=== PATIENT | male | born 1930 | race Caucasian/White ===

== ENCOUNTER 2017-04-18 05:50 | Day surgery (SDC) | payer MEDICARE, OTHER ==
[~2017-04-18] VITALS: Ht 190.5 cm; Wt 86.2 kg
[~2017-04-18 05:50] MED LIST: ASPIRIN325 MG PO; CRESTOR40 MG NG; MULTI VITAMIN1 EACH PO; PLAVIX75 MG PO
--- NOTE | 2017-04-18 08:01 | NUR ---
PT ALERT, ORIENTED AND SUPPORTED BY HIS MANDIE. PT SEEMED PREPARED, HAD FEW QUESTIONS, BOTH VERY FRIENDLY AND PLEASANT. CAME IN, WILL FOLLOW NEEDED
--- NOTE | 2017-04-18 08:47 | NUR ---
04/18/17 0847 Maryann Machuca 0836 PT ASLEEP, ORAL AIRWAY IN PLACE WITH RN ISADORA CHIN THRUST TO MAINTAIN AIRWAY. 0840 PT AWOKE TO STIMULI AND ORAL AIRWAY WAS REMOVED. O2 DECREASED TO 6L VIA MASK. O2 SAT 100%.
[2017-04-18] MEDS ORDERED: NORCO 5-325 TA1 EACH PO (10:36)
--- NOTE | 2017-04-18 15:10 | OR ---
[facility] [address] [place], [place] [address] Signed DATE OF OPERATION: 04/18/2017 SURGEON: Jessica Womack MD PREOPERATIVE DIAGNOSIS: Left preauricular subcutaneous mass (1 x 1.5 cm). POSTOPERATIVE DIAGNOSIS: Left preauricular subcutaneous mass (1 x 1.5 cm). PROCEDURE: Excision left preauricular subcutaneous mass. ESTIMATED BLOOD LOSS: None. FINDINGS: Artur appears to have a small lipoma in the preauricular space. Preoperatively, we thought it could be a lymph node as well. INDICATIONS: Artur is an 87-year-old gentleman, who remains in excellent shape. He goes to our athletic club almost daily. He had been to his maitre d and there was a subcutaneous mass in front of his left ear. It is a centimeter wide by 1.5 to 2 cm in length. Because his sideburns cover that area. He said he has never noticed it. On exam, it does not appear attached anything underneath. It does not appear to be connected to the overlying skin. It does not appear to be any drainage. He said it has never been infected to his knowledge. He has no idea how long it has been there. On exam, it does not appear to be any nearby skin lesions. I explained to Artur and his it is probably best that we make a vertical incision over that lesion and remove it for definitive diagnosis and treatment. I explained to them the nature of the incision along with the risks including, but not limited to bleeding, infection, scarring, change in contour of the skin as well as possible need for additional surgery based on pathology results. They had expressed understanding and wished to proceed. PROCEDURE NOTE: I met with Artur and his in our preop area. We were able to easily see and palpate this lesion. We went ahead and marked that appropriately with our pen. After this, Artur was taken into our operating room and placed in the supine position under general LMA anesthesia. He was given preoperative antibiotics along with subcutaneous Electronically Signed By: JESSICA WOMACK MD 04/18/17 1510 PATIENT NAME: ARTUR VENCES OPERATIVE REPORT DATE OF : 34 PHYSICIAN: JESSICA WOMACK MD REPORT #: [id number] REPORT IS CONFIDENTIAL AND NOT TO BE RELEASED WITHOUT AUTHORIZATION [facility] [address] [place] [id number] Signed heparin. He was then prepped and draped in the usual sterile fashion. We made a standard vertical incision in the left preauricular area and carried that down around the lesion with the help of our needle-tip cautery. By visual inspection, this appears to be a small lipoma, probably a centimeter wide by 1.5 cm in length. I palpated in the wound. No other lesions were noted. After this, local anesthetic was injected in the wound. The wound was irrigated and suctioned out until clear. The dermis was reapproximated with interrupted subcuticular 5-0 Monocryl sutures. Skin edges were reapproximated with a running 6-0 fast absorbing plain gut suture. A 0.5 inch Steri-Strip was then placed over the incision. After this, Artur was awakened from his anesthesia, extubated in the OR and taken to recovery room in stable condition. MD ELENA Painter/PJL /[id number] cc: MD Carmita Painter MD Electronically Signed By: JESSICA WOMACK MD 04/18/17 1510 PATIENT NAME: ARTUR VENCES OPERATIVE REPORT DATE OF : 34 PHYSICIAN: JESSICA WOMACK MD REPORT #: [id number] REPORT IS CONFIDENTIAL AND NOT TO BE RELEASED WITHOUT AUTHORIZATION
== END 2017-04-18 10:50 | disposition home or self-care (01) ==
LOC: DS 05:50
PROVIDERS: Colon & Rectal Surgery
PROC: 0JB10ZZ Excision of Face Subcutaneous Tissue and Fascia, Open Approach (ICD-10-PCS; principal; 2017-04-18 06:45)
DX: L98.8 Other specified disorders of the skin and subcutaneous tissue (principal); I25.9 Chronic ischemic heart disease, unspecified; N40.0 Benign prostatic hyperplasia without lower urinary tract symptoms; E78.5 Hyperlipidemia, unspecified; E55.9 Vitamin D deficiency, unspecified; Z90.89 Acquired absence of other organs; Z98.52 Vasectomy status; Z95.5 Presence of coronary angioplasty implant and graft; Z86.010 Personal history of colon polyps; Z98.818 Other dental procedure status; Z98.890 Other specified postprocedural states; Z79.899 Other long term (current) drug therapy
CPT/HCPCS: 00100; 88304; J0690; J1100; J1644; J1885; J2405; J2704; J7120

== ENCOUNTER 2017-06-11 07:00 | Day surgery (SDC) | payer MEDICARE, OTHER ==
[~2017-06-11] VITALS: Ht 190.5 cm; Wt 86.2 kg
[~2017-06-11 07:00] MED LIST changes: +NORCO 5-325 TA1 EACH PO
--- NOTE | 2017-06-11 09:22 | NUR ---
PT SITTING UP IN BED-ALERT AND ORIENTED. HIS MANDIE HAD STEPPED OUT FOR BREAKFAST. PT INFORMED, SEEMED RELAXED AND PREPARED FOR SURGERY. EXTENDED A BLESSING, WILL BE AVAILABLE NEEDED
--- NOTE | 2017-06-11 09:48 | NUR ---
06/11/17 0948 Maryann Machuca 0930 PT ARRIVED ASLEEP WITH ORAL AIRWAY IN PLACE ON 10L VIA MASK. 0937 PT WOKE UP ORAL AIRWAY REMOVED, O2 DECREASED TO 6L. O2 SAT 100%. PT DENIES PAIN AND NAUSEA.
--- NOTE | 2017-06-11 10:03 | NUR ---
SOUP AND ROLL ORDERED FROM DIETARY. ICED WATER GIVEN. CALL LIGHT W/IN REACH. FAMILY @ BS.
--- NOTE | 2017-06-11 11:05 | NUR ---
MORE WATER GIVEN.
--- NOTE | 2017-06-11 11:45 | NUR ---
PT UP TO BR W/RN STANDBY. PT AMBULATES 150 ML CLEAR YELLOW URINE AND REQ DC HOME. VERBAL DC INSTRUCTIONS GIVEN IN PRESENCE OF PT'S SPOUSE AND THEY BOTH VERBALIZE UNDERSTANDING. PT DRESSES SELF IN PRESENCE OF SPOUSE.
--- NOTE | 2017-06-17 12:06 | OR ---
[facility] [address] [place], [place] [address] Signed DATE OF OPERATION: 06/11/2017 SURGEON: Jessica Fine MD PREOPERATIVE DIAGNOSIS: Reducible right inguinal hernia. POSTOPERATIVE DIAGNOSIS: Reducible right indirect inguinal hernia. PROCEDURE: Right Gibson onlay mesh, inguinal herniorrhaphy. ESTIMATED BLOOD LOSS: None. INDICATIONS: Artur is an 87-year-old gentleman who remains very active. In fact, he goes and exercise 6 days a week at our local athletic club. He has had his ideal body weight and has good muscle mass and excellent functional status. However, he has noticed pain and swelling in the right groin for about a year. He said it has increased in size and burning and starting to limit him in his daily activities as well as his exercising. He mentioned it to his primary care provider. He was asked to see me with respect to his reducible right inguinal hernia. In the office, I gave Artur a booklet on hernias. We looked at the book together to identify inguinal hernias. He understands the difference between a primary suture repair and a mesh repair. He also understands expected intraop and postop course. There is risk of surgery including, but not limited to bleeding, infection, scarring, change in contour of the skin, damage to the nerves, ischemic orchitis, recurrent hernias and chronic pain. He expressed understanding and wished to proceed. PROCEDURE NOTE: I met with Artur, his and his daughter in our preop area. We all agreed, it was the right groin and we marked that appropriately. After this, Artur was taken into our operating room and placed in the supine position under general anesthesia. He was given preoperative antibiotics along with subcutaneous heparin. SCDs were utilized. He was then prepped and draped in the usual sterile fashion. A standard oblique incision was made over the right groin and carried down through the tissue bluntly and with the cautery. The external oblique fascia was opened along its length and developed medially and laterally. The ilioinguinal and iliohypogastric nerves were visualized and Electronically Signed By: JESSICA FINE MD 06/17/17 1206 PATIENT NAME: ARTUR VENCES OPERATIVE REPORT DATE OF : 34 REPORT #: [id number] PHYSICIAN: JESSICA FINE MD PCP: Carmita VELAZQUEZ MD REPORT IS CONFIDENTIAL AND NOT TO BE RELEASED WITHOUT AUTHORIZATION [facility] [address] [place], [place] [address] Signed protected throughout the case. The cord structures were elevated at the level of pubic tubercle with the help of a [place] drain. We then cut our flat Prolene mesh to fit his groin and a slit was made in the mesh to accommodate the cord structures at the level of the deep ring. After this mesh, a mesh was held in place medially and laterally with the help of running #1 Prolene suture. This gave good coverage of direct and indirect spaces with no undue tension of the mesh around the cord structures at the level of deep ring. The wound was then infiltrated with local anesthetic. The wound was then irrigated and suctioned out until clear. We closed the external oblique fascia over the repair with the help of a running 2-0 PDS suture. Jazmin fascia was then reapproximated with a running 3-0 Monocryl suture. The dermis was reapproximated with interrupted 3-0 subcuticular Monocryl sutures. The skin edges were reapproximated with a running 6-0 fast absorbing plain gut suture. Dry gauze and tape were then applied. Artur was awakened from his anesthesia, extubated in the OR, and taken to recovery room in stable condition. Jessica Fine MD ALB/MODL /[id number] cc: Carmita Velazquez MD Copies: Carmita VELAZQUEZ MD ~ Electronically Signed By: JESSICA FINE MD 06/17/17 1206 PATIENT NAME: RATUR VENCES OPERATIVE REPORT DATE OF : 34 REPORT #: [id number] PHYSICIAN: JESSICA FINE MD PCP: Carmita VELAZQUEZ MD REPORT IS CONFIDENTIAL AND NOT TO BE RELEASED WITHOUT AUTHORIZATION
== END 2017-06-11 11:45 | disposition home or self-care (01) ==
LOC: DS 07:00
PROVIDERS: Colon & Rectal Surgery
PROC: 0YU50JZ Supplement Right Inguinal Region with Synthetic Substitute, Open Approach (ICD-10-PCS; principal; 2017-06-11 08:45)
DX: K40.90 Unilateral inguinal hernia, without obstruction or gangrene, not specified as recurrent (principal); I25.10 Atherosclerotic heart disease of native coronary artery without angina pectoris; N40.0 Benign prostatic hyperplasia without lower urinary tract symptoms; E78.5 Hyperlipidemia, unspecified; E55.9 Vitamin D deficiency, unspecified; G47.10 Hypersomnia, unspecified; Z86.79 Personal history of other diseases of the circulatory system; Z79.82 Long term (current) use of aspirin; Z98.52 Vasectomy status; Z95.1 Presence of aortocoronary bypass graft; Z98.890 Other specified postprocedural states; Z90.89 Acquired absence of other organs; Z79.899 Other long term (current) drug therapy; Z79.02 Long term (current) use of antithrombotics/antiplatelets; Z87.891 Personal history of nicotine dependence
CPT/HCPCS: 00830; C1781; J0690; J1100; J1644; J1885; J2405; J2704; J3010; J7120

== ENCOUNTER 2019-09-14 16:56 | Emergency (ER) | payer MEDICARE, OTHER ==
[~2019-09-14] VITALS: Ht 190.5 cm; Wt 86.2 kg
--- OUTSIDE RECORDS SUMMARY | ~2019-09-14 | XMS | Encounter Summary ---
Demographics + + + | Address | [address] | | | [place] [address] | + + + | Home Phone | | + + + | Preferred Language | Unknown | + + + | Marital Status | | + + + | Synagogue Affiliation | NON | + + + | Race | White | + + + | Ethnic Group | Not or | + + + Author + + + | Author | [facility] | + + + | Organization | [facility] | + + + | Address | Unknown | + + + | Phone | Unavailable | + + + Support + + + + + | Name | Relationship | Address | Phone | + + + + + | Mariajose Reece | ECON | [address] | | | | | [address] | | | | | [address] | | + + + + + Care Team Providers + +------+ + | Care Donor Services Specialist Name | Role | Phone | + +------+ + | Kike Velazquez MD | PCP | | + +------+ + Encounter Details +--------+ + + + + | Date | Type | Department | Care Team | Description | +--------+ + + + + | 09/10/ | Hospital | Dermatopathology | | | | 2012 | Encounter | [address] | | | | | | Mailcode: [id number] | | | | | | [facility] | | | | | | and Healing, | | | | | | Building | | | | | | Floor [place], [place] | | | | | | [address] | | | | | | [phone] | | | +--------+ + + + [...] + + + +---------+ + + | TI-Mqm-Roevl | Take by mouth. | | 0 [...] Received: | | | | | | [id number] x 1 | | | | | [...] Returned: | | | | | | [id number] x 1 | | | | | [...] | + + + + + | [facility] | [address] | [place] [address] | | | DERMATOPATHOLOGY | [address] | | | + + + + + documented in this encounter Visit Diagnoses Not on filedocumented in this encounter"
--- OUTSIDE RECORDS SUMMARY | ~2019-09-14 | XMS | Encounter Summary ---
Demographics + + + | Address | [address] | | | [place] [address] | + + + | Home Phone | | + + + | Preferred Language | Unknown | + + + | Marital Status | | + + + | Anabaptist Affiliation | Unknown | + + + | Race | Unknown | + + + | Ethnic Group | Unknown | + + + Author + + + | Author | [facility] | | | and [place] | + + + | Organization | [facility] | | | and [place] | + + + | Address | Unknown | + + + | Phone | Unavailable | + + + Support + + +---------+ + | Name | Relationship | Address | Phone | + + +---------+ + | Toshia Aysha | ECON | Unknown | | + + +---------+ + Care Team Providers + +------+ + | Care Solar Engineer Name | Role | Phone | + +------+ + | Varun Khalil MD | PCP | | + +------+ + Encounter Details +--------+ + + + + | Date | Type | Department | Care Team | Description | +--------+ + + + + | 08/21/ | Orders Only | [facility] | Varun Khalil | | | 2018 | | CONVERSION 888 | MD Teri [address] | | | | | [place] | [address] | | | | | [address]ANE [address] | [place] [address] | | | | | [address] | [phone] | | | | | [phone] | | | +--------+ + + + + Social History + +-------+ +--------+------+ | Tobacco Use | Types | Packs/Day | Years | Date | | | | | Used | | + +-------+ +--------+------+ | Never Assessed | | | | | + +-------+ +--------+------+ + + + | Sex Assigned at [...] | + +--------+ + + + | ECHO INTERPRETATION | Routin | 08/21/2017 | | Results for this | | OF OUTSIDE FILMS | e | 4:44 PM | | procedure are in the | | | | PDT | | results section. | + +--------+ + + + documented in this encounter Results ECHO Interpretation of Outside Films (08/21/2017 4:44 PM PDT) + + | Specimen | + + | | + + + + + | Impressions | Performed At | + + + | 1. The left ventricle is normal in size, wall thickness and systolic | | | function. 2. The right ventricle is normal in size and function. 3. | | | Mild tricuspid regurgitation and no pulmonary hypertensio. 4. There | | | is no pericardial effusion. | | + + + + + + | Narrative | Performed At | + + + | Patient Name: Zoltan Reece Date of : 1930 | | | Performing Physician: Abilio Mckinney | | | | | | INDICATIONS fatigue CONCLUSIONS 1. The | | | left ventricle is normal in size, wall thickness and systolic | | | function. 2. The right ventricle is normal in size and function. 3. | | | Mild tricuspid regurgitation and no pulmonary hypertensio. 4. There | | | is no pericardial effusion. FINDINGS -------- ECG rhythm: Sinus | | | rhythm with extra systolic beats. Study: A 2-dimensional | | | transthoracic echocardiogram with m-mode, spectral and color flow | | | Doppler was perfomed. Study: This was a technically adequate study. | | | Left Ventricle: Overall left ventricular systolic function is normal | | | with, an EF between 55 - 60 %. Left Ventricle: The left ventricle | | | cavity size is normal. Left Ventricle: Left ventricular wall | | | thickness is normal. Left Ventricle: The diastolic filling pattern is | | | normal the age of the patient. Right Ventricle: The right ventricle | | | is normal in size and function. Left Atrium: The left atrium is | | | mildly enlarged. Right Atrium: The right atrium is mildly enlarged. | | | Aortic Valve: Aortic valve is mildly thickened. Aortic Valve: The | | | aortic valve is mildly calcified. Aortic Valve: Trace amount of | | | aortic regurgitation. Aortic Valve: There is no evidence of aortic | | | stenosis. Aortic Valve: The right coronary cusp is immobile. Mitral | | | Valve: Mitral valve is thickened. Mitral Valve: Mild mitral | | | regurgitation is present. Tricuspid Valve: The tricuspid valve | | | appears structurally normal. Tricuspid Valve: Mild tricuspid | | | regurgitation present. Tricuspid Valve: There is no evidence of | | | pulmonary hypertension. Tricuspid Valve: The right ventricular | | | systolic pressure (pulmonary artery systolic pressure), as measured by | | | Doppler, is 30.76mmHg. Pulmonic Valve: Pulmonic valve appears | | | structurally normal. Pulmonic Valve: Trace pulmonic regurgitation. | | | Pericardium: There is no pericardial effusion. Pericardium: No | | | pleural effusion seen. IVC/Hepatic Veins: The inferior vena cava is | | | normal in size and collapses > 50 % with sniff, indicating normal | | | central venous pressures. Aorta: The aortic root, ascending aorta and | | | aortic arch are normal. Septum: Interatrial septal aneurysm. | | | MEASUREMENTS Ao asc: 3.38 cm Ao sinus: 3.55 cm | | | Ao st junct: 2.93 cm IVC: 2.36 cm LA Diam: 4.19 cm | | | EDV(Teich): 127.05 ml IVSd: 0.94 cm LVIDd: 5.15 cm LVPWd: | | | 0.77 cm LVOT Area: 3.95 cm2 LVOT Diam: 2.24 cm %FS: | | | 18.89 % EF(Teich): 38.75 % ESV(Teich): 77.81 ml LVIDs: | | | 4.18 cm SV(Teich): 49.24 ml RVIDd: 3.09 cm LVEF MOD A2C: | | | 60.03 % SV MOD A2C: 83.83 ml LVEF MOD A4C: 54.14 % SV MOD | | | A4C: 79.63 ml EF Biplane: 57.41 % LVEDV MOD BP: 144.28 ml | | | LVESV MOD BP: 61.44 ml LVEDV MOD A2C: 139.62 ml LVLd A2C: | | | 8.77 cm LVEDV MOD A4C: 147.07 ml LVLd A4C: 8.59 cm LVESV MOD | | | A2C: 55.79 ml LVLs A2C: 7.22 cm LVESV MOD A4C: 67.44 ml | | | LVLs A4C: 7.15 cm LAESV(A-L): 80.20 ml LAESV Index (A-L): | | | 37.30 ml/m2 LAAs A2C: 24.58 cm2 LAESV A-L A2C: 82.61 ml LALs | | | A2C: 6.20 cm LAAs A4C: 20.85 cm2 LAESV A-L A4C: 68.03 ml | | | LALs A4C: 5.42 cm RAAs: 18.61 cm2 RAESV A-L: 62.06 ml | | | RAESV MOD: 54.78 ml RALs: 4.73 cm TAPSE: 1.84 cm AV maxPG: | | | 10.87 mmHg AV meanP.04 mmHg AV Vmax: 1.64 m/s AV | | | Vmean: 1.16 m/s AV VTI: 35.24 cm DARRELL Vmax: 2.35 cm2 DARRELL | | | (VTI): 2.20 cm2 AVAI (Vmax): 0.00 cm2/m2 AVAI (VTI): 0.00 | | | cm2/m2 LVOT maxP.83 mmHg LVOT meanP.87 mmHg LVSI | | | Dopp: 36.07 ml/m2 LVSV Dopp: 77.55 ml LVOT Vmax: 0.97 m/s | | | LVOT Vmean: 0.63 m/s LVOT VTI: 19.59 cm MV A Bharat: 0.59 m/s | | | MV Dec [place]: 2.18 m/s2 MV DecT: 262.21 ms MV E Bharat: 0.57 | | | m/s MV E/A Ratio: 0.96 MV PHT: 76.04 ms MVA By PHT: 2.89 | | | cm2 Septal e': 0.08 m/s Septal E/e': 6.68 Lateral e': 0.05 | | | m/s Lateral E/e': 9.85 RAP: 5 mmHg RVSP: 30.75 mmHg TR | | | maxP.75 mmHg TR Vmax: 2.53 m/s City Carrier Assistant: JOSSELINE | | | Authenticated by: Abilio Whitfielddiamond Report Date/Time: 08-22-2017 | | | 11:39:48 | | + + + + + | Procedure Note | + + | Cory Garcia Conversion - 11/26/2018 5:33 PM PDT Patient Name: Willard Reece of | | : 1930 Performing Physician: Abilio | | Faye INDICATIONS------ | | -----fatigue CONCLUSIONS 1. The left ventricle is normal in size, wall | | thickness and systolic function.2. The right ventricle is normal in size and function.3. | | Mild tricuspid regurgitation and no pulmonary hypertensio.4. There is no pericardial | | effusion. FINDINGS--------ECG rhythm: Sinus rhythm with extra systolic beats.Study: A | | 2-dimensional transthoracic echocardiogram with m-mode, spectral and color flow Doppler | | was perfomed.Study: This was a technically adequate study.Left Ventricle: Overall left | | ventricular systolic function is normal with, an EF between 55 - 60 %.Left Ventricle: | | The left ventricle cavity size is normal.Left Ventricle: Left ventricular wall thickness | | is normal.Left Ventricle: The diastolic filling pattern is normal the age of the | | patient.Right Ventricle: The right ventricle is normal in size and function.Left Atrium: | | The left atrium is mildly enlarged.Right Atrium: The right atrium is mildly | | enlarged.Aortic Valve: Aortic valve is mildly thickened.Aortic Valve: The aortic valve | | is mildly calcified.Aortic Valve: Trace amount of aortic regurgitation.Aortic Valve: | | There is no evidence of aortic stenosis.Aortic Valve: The right coronary cusp is | | immobile.Mitral Valve: Mitral valve is thickened.Mitral Valve: Mild mitral regurgitation | | is present.Tricuspid Valve: The tricuspid valve appears structurally normal.Tricuspid | | Valve: Mild tricuspid regurgitation present.Tricuspid Valve: There is no evidence of | | pulmonary hypertension.Tricuspid Valve: The right ventricular systolic pressure | | (pulmonary artery systolic pressure), as measured by Doppler, is 30.76mmHg.Pulmonic | | Valve: Pulmonic valve appears structurally normal.Pulmonic Valve: Trace pulmonic | | regurgitation.Pericardium: There is no pericardial effusion.Pericardium: No pleural | | effusion seen.IVC/Hepatic Veins: The inferior vena cava is normal in size and collapses | | > 50 % with sniff, indicating normal central venous pressures.Aorta: The aortic root, | | ascending aorta and aortic arch are normal.Septum: Interatrial septal aneurysm. | | MEASUREMENTS Ao asc: 3.38 cmAo sinus: 3.[address] junct: 2.93 cmIVC: | | 2.36 cmLA Diam: 4.19 cmEDV(Teich): 127.05 mlIVSd: 0.94 cmLVIDd: 5.15 cmLVPWd: | | 0.77 cmLVOT Area: 3.95 [id number] Diam: 2.24 cm%FS: 18.89 %EF(Teich): 38.75 | | %ESV(Teich): 77.81 mlLVIDs: 4.18 cmSV(Teich): 49.24 mlRVIDd: 3.09 cmLVEF MOD | | A2C: 60.03 %SV MOD A2C: 83.83 mlLVEF MOD A4C: 54.14 %SV MOD A4C: 79.63 mlEF | | Biplane: 57.41 %LVEDV MOD BP: 144.28 mlLVESV MOD BP: 61.44 mlLVEDV MOD A2C: | | 139.62 mlLVLd A2C: 8.77 cmLVEDV MOD A4C: 147.07 mlLVLd A4C: 8.59 cmLVESV MOD A2C: | | 55.79 mlLVLs A2C: 7.22 cmLVESV MOD A4C: 67.44 mlLVLs A4C: 7.15 cmLAESV(A-L): | | 80.20 mlLAESV Index (A-L): 37.30 ml/m2LAAs A2C: 24.58 [id number] A-L A2C: 82.61 | | mlLALs A2C: 6.20 cmLAAs A4C: 20.85 of2IZFLH A-L A4C: 68.03 mlLALs A4C: 5.42 | | cmRAAs: 18.61 [id number] A-L: 62.06 mlRAESV MOD: 54.78 mlRALs: 4.73 cmTAPSE: | | 1.84 cmAV maxP.87 mmHgAV meanP.04 mmHgAV Vmax: 1.64 m/Zena Vmean: 1.16 | | m/Zena VTI: 35.24 cmAVA Vmax: 2.35 cm2AVA (VTI): 2.20 [id number] (Vmax): 0.00 | | cm2/m2AVAI (VTI): 0.00 cm2/m2LVOT maxP.83 mmHgLVOT meanP.87 mmHgLVSI Dopp: | | 36.07 ml/m2LVSV Dopp: 77.55 mlLVOT Vmax: 0.97 m/sLVOT Vmean: 0.63 m/sLVOT VTI: | | 19.59 cmMV A Bharat: 0.59 m/sMV Dec [place]: 2.18 m/s2MV DecT: 262.21 msMV E Bharat: | | 0.57 m/sMV E/A Ratio: 0.96MV PHT: 76.04 msMVA By PHT: 2.89 kh2Izxdlj e': 0.08 | | m/sSeptal E/e': 6.68Lateral e': 0.05 m/sLateral E/e': 9.85RAP: 5 mmHgRVSP: | | 30.75 mmHgTR maxP.75 mmHgTR Vmax: 2.53 m/s City Carrier Assistant: DBSAuthenticated by: | | [facility] Date/Time: 08-22-2017 11:39:48 IMPRESSION: 1. The left ventricle | | is normal in size, wall thickness and systolic function.2. The right ventricle is normal | | in size and function.3. Mild tricuspid regurgitation and no pulmonary hypertensio.4. | | There is no pericardial effusion. | |MEASUREMENTS | | | |Ao asc: 3.38 cm | |Ao sinus: 3.55 cm | |Ao st junct: 2.93 cm | |IVC: 2.36 cm | |LA Diam: 4.19 cm | |EDV(Teich): 127.05 ml | |IVSd: 0.94 cm | |LVIDd: 5.15 cm | |LVPWd: 0.77 cm | |LVOT Area: 3.95 cm2 | |LVOT Diam: 2.24 cm | |%FS: 18.89 % | |EF(Teich): 38.75 % | |ESV(Teich): 77.81 ml | |LVIDs: 4.18 cm | |SV(Teich): 49.24 ml | |RVIDd: 3.09 cm | |LVEF MOD A2C: 60.03 % | |SV MOD A2C: 83.83 ml | |LVEF MOD A4C: 54.14 % | |SV MOD A4C: 79.63 ml | |EF Biplane: 57.41 % | |LVEDV MOD BP: 144.28 ml | |LVESV MOD BP: 61.44 ml | |LVEDV MOD A2C: 139.62 ml | |LVLd A2C: 8.77 cm | |LVEDV MOD A4C: 147.07 ml | |LVLd A4C: 8.59 cm | |LVESV MOD A2C: 55.79 ml | |LVLs A2C: 7.22 cm | |LVESV MOD A4C: 67.44 ml | |LVLs A4C: 7.15 cm | |LAESV(A-L): 80.20 ml | |LAESV Index (A-L): 37.30 ml/m2 | |LAAs A2C: 24.58 cm2 | |LAESV A-L A2C: 82.61 ml | |LALs A2C: 6.20 cm | |LAAs A4C: 20.85 cm2 | |LAESV A-L A4C: 68.03 ml | |LALs A4C: 5.42 cm | |RAAs: 18.61 cm2 | |RAESV A-L: 62.06 ml | |RAESV MOD: 54.78 ml | |RALs: 4.73 cm | |TAPSE: 1.84 cm | |AV maxP.87 mmHg | |AV meanP.04 mmHg | |AV Vmax: 1.64 m/s | |AV Vmean: 1.16 m/s | |AV VTI: 35.24 cm | |DARRELL Vmax: 2.35 cm2 | |DARRELL (VTI): 2.20 cm2 | |AVAI (Vmax): 0.00 cm2/m2 | |AVAI (VTI): 0.00 cm2/m2 | |LVOT maxP.83 mmHg | |LVOT meanP.87 mmHg | |LVSI Dopp: 36.07 ml/m2 | |LVSV Dopp: 77.55 ml | |LVOT Vmax: 0.97 m/s | |LVOT Vmean: 0.63 m/s | |LVOT VTI: 19.59 cm | |MV A Bharat: 0.59 m/s | |MV Dec [place]: 2.18 m/s2 | |MV DecT: 262.21 ms | |MV E Bharat: 0.57 m/s | |MV E/A Ratio: 0.96 | |MV PHT: 76.04 ms | |MVA By PHT: 2.89 cm2 | |Septal e': 0.08 m/s | |Septal E/e': 6.68 | |Lateral e': 0.05 m/s | |Lateral E/e': 9.85 | |RAP: 5 mmHg | |RVSP: 30.75 mmHg | |TR maxP.75 mmHg | |TR Vmax: 2.53 m/s | | | |City Carrier Assistant: DBS | |Authenticated by: Abilio Mckinney | |Report Date/Time: 08-22-2017 11:39:48 | | | |IMPRESSION: | |1. The left ventricle is normal in size, wall thickness and systolic function. | |2. The right ventricle is normal in size and function. | |3. Mild tricuspid regurgitation and no pulmonary hypertensio. | |4. There is no pericardial effusion. | + + documented in this encounter Visit Diagnoses Not on filedocumented in this encounter"
--- OUTSIDE RECORDS SUMMARY | ~2019-09-14 | XMS | Encounter Summary ---
Demographics + + + | Address | [address] | | | [place] [address] | + + + | Home Phone | | + + + | Preferred Language | Unknown | + + + | Marital Status | | + + + | Uatsdin Affiliation | NON | + + + | Race | White | + + + | Ethnic Group | Not or | + + + Author + + + | Author | [facility] | + + + | Organization | [facility] | + + + | Address | Unknown | + + + | Phone | Unavailable | + + + Support + + + + + | Name | Relationship | Address | Phone | + + + + + | Mariajose Reece | ECON | [address] | | | | | [address] | | | | | [address] | | + + + + + Care Team Providers + +------+ + | Care Cardroom Manager Name | Role | Phone | [...]
--- OUTSIDE RECORDS SUMMARY | ~2019-09-14 | XMS | Encounter Summary ---
Demographics + + + | Address | [address] | | | [place] [address] | + + + | Home Phone | | + + + | Preferred Language | Unknown | + + + | Marital Status | | + + + | Zoroastrian Affiliation | NON | + + + | Race | White | + + + | Ethnic Group | Not or | + + + Author + + + | Author | [facility] | + + + | Organization | [facility] | + + + | Address | Unknown | + + + | Phone | Unavailable | + + + Support + + + + + | Name | Relationship | Address | Phone | + + + + + | Mariajose Reece | ECON | [address] | | | | | [address] | | | | | [address] | | + + + + + Care Team Providers + +------+ + | Care Lightout Examiner Name | Role | Phone | + +------+ + | Kike Velazquez MD | PCP | | + +------+ + Reason for Visit + + + | Reason | Comments | + + + | New patient | | | consultation | | + + + Consultation (Routine) +--------+--------+ + + + + | Status | Reason | Specialty | Diagnoses / | Referred By | Referred To | | | | | Procedures | Contact | Contact | +--------+--------+ + + + + | Closed | | Facial | | Benji, | Moise Baldwin, | | | | Plastic | | Sheridan Moura MD | [address] | | | | Surgery | | Keira | [address] | | | | | | Health ENT | [address] | | | | | | [address] | [place], [place] | | | | | | [address] | [address] | | | | | | [address], | Phone: | | | | | | [place] [address] | [phone] | | | | | | Phone: | Fax: | | | | | | [phone] | [phone] | | | | | | Fax: | | | | | | | [phone] | | +--------+--------+ + + + + Encounter Details +--------+---------+ + + + | Date | Type | Department | Care Team | Description | +--------+---------+ + + + | 01/15/ | Office | Otolaryngology | Moise Baldwin MD | Nasal obstruction; | | 2009 | Visit | Facial Plastics & | [address] | Nasal deformity, | | | | Reconstructive | [facility], | acquired; Deflected | | | | Services at [facility] | [place] [address] | nasal septum | | | | [address] | [phone] | | | | | Mailcode: AMARJIT | | | | | | [facility] | | | | | | and Healing, | | | | | | Building [address], 5th | | | | | | Floor [place], [place] | | | | | | [address] | | | | | | [phone] | | | +--------+---------+ + + + [...] documented as of this encounter Progress Notes Eusebio Haines MD - 01/15/2010 11:33 AM PDT Clinic: Facial Plastic and Reconstructive Surgery Clinic Zoltan Reece is a 80 y.o. 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 This patient is referred by SHERIDAN HOFFMANN [address] [place] [id number]. Patient indicates he is not able to breathe well out of his nose, mostly on the left side. 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 After t his procedure he has noted left sided nasal obstruction and a slight change in the appearanc e of the left nostril (left notching at soft tissue triangle and asymmetry). He noted this o job the past year but it has gotten worse to the point of interfering with sleep at night, c ausing mouth breathing and dryness of his mouth and tongue. He also has a h/o seasonal nasa l allergies as a child, but none as an adult. He has a h/o CAD s/p CABG in 1998 and is on A spirin and Plavix (? H/o TIA's). He has not tried external Breathe-right strips. PMH:Past Medical History Diagnosis Date High cholesterol Liver disease 1978 ; No past surgical history on file. PSH: Tonsillectomy 1937 Vasectomy 1955 CABG (3 vessel) 02/1999 Rhinophyma laser excision 01/2009 Current outpatient prescriptions:aspirin 325 mg Oral Tablet, Take 325 mg by mouth once yaneth y., Disp: , Rfl: clopidogrel (PLAVIX) 75 mg Oral Tablet, Take 75 mg by mouth once daily., Disp: , Rfl: UC-Cjc-Oevbn Acid-Lutein (CENTRUM SILVER) 500-250 mcg Oral Tablet, Chewable, Take by mouth ., Disp: , Rfl: niacin SR (NIASPAN) 500 mg Oral Tablet Sustained Release, Take 500 mg by mouth once daily a t bedtime., Disp: , Rfl: rosuvastatin (CRESTOR) 40 mg Oral Tablet, Take 40 mg by mouth once daily., Disp: , Rfl: tetracycline 250 mg Oral Capsule, Take 250 mg by mouth four times daily. Administer on an e mpty stomach. , Disp: , Rfl: Exam: Nasal dorsum: external dorsum on AP view is fairly straight with slight shift off to his right near the nasal tip. On lateral view, he does have a dorsal prominence involving b oth bony and cartilage portions. Nasal valve: his upper lateral cartilages are somewhat weak and collapsed, causing some deg ree of airway obstruction. Stenting of this area improves his nasal airway significantly on the left > right. Nasal tip: good projection and fair support, slightly under-rotated, tip definition asymmet paula (changes related to previous rhinophyma excision, left nostril notching at soft tissue t riangle, deficiency in caudal aspect of left dome) Nasal base: asymmetric with caudal septum visible in left nostril and asymmetry of nostril shape/size. Nasal septum: Intranasal exam shows marked caudal septal deviation to the left side, it sales consultant ior deviates right along the floor. Bilateral inferior turbinates normal in size. Impression: left nasal airway obstruction due to combination of bilateral internal nasal va lve collapse, moderate septal deviation and left external valve collapse, s/p rhinophyma res ection complicated by bleeding. Plan: Discussed management via ear cartilage butterfly graft to help support his internal n jose maria valves and septoplasty with possible septal transplant, done as an outpatient procedure . We also discussed the possibility of an auricular composite graft for the nostril notchin g but that this may need to be performed as a secondary procedure. Risks discussed include but are not limited to: infection, bleeding, scar, persistent or worsened nasal obstruction, cosmetic deformity, asymmetry, scar being more noticeable, no guarantee of cosmetic outcome , need for future surgical procedures, and other unforseen complications. All questions answered. Photos obtained today. He will let us know if and when he is read y to proceed. Eusebio Haines MD Resident, Otolaryngology / Head & Neck Surgery I personally interviewed the patient, duplicated the pertinent parts of the physical examin ation and procedure and personally formulated the plan. I have reviewed, entered my findings , and agree with the above documentation. Moise Baldwin MD FACS Professor Facial Plastic and Reconstructive Surgery Dept. of Otolaryngology/Head and Neck Surgery Formerly [facility] tel fax email [email or web address] Milan Zepeda - 01/15/2010 10 :18 AM PDT Additional staff support provided to the patient during this encounter included: Health maintanance reviewed and documented. Medication(s) reviewed this encounter: Outpatient encounter prescriptions as of 01/15/2010 Medication Sig Dispense Refill aspirin 325 mg Oral Tablet Take 325 mg by mouth once daily. clopidogrel (PLAVIX) 75 mg Oral Tablet Take 75 mg by mouth once daily. DC-Ipx-Fnals Acid-Lutein (CENTRUM SILVER) 500-250 mcg Oral Tablet, Chewable Take by anup blandon. niacin SR (NIASPAN) 500 mg Oral Tablet Sustained Release Take 500 mg by mouth once yaneth y at bedtime. rosuvastatin (CRESTOR) 40 mg Oral Tablet Take 40 mg by mouth once daily. tetracycline 250 mg Oral Capsule Take 250 mg by mouth four times daily. Administer on a n empty stomach. documented in this encounter Plan of Treatment Not on filedocumented as of this encounter Visit Diagnoses + + | Diagnosis | + + | Nasal obstruction Other diseases of nasal cavity and sinuses | + + | Nasal deformity, acquired Acquired deformity of nose | + + | Deflected nasal septum Deviated nasal septum | + + documented in this encounter"
--- OUTSIDE RECORDS SUMMARY | ~2019-09-14 | XMS | Encounter Summary ---
Demographics + + + | Address | [address] | | | [place] [address] | + + + | Home Phone | | + + + | Preferred Language | Unknown | + + + | Marital Status | | + + + | Cheondoism Affiliation | NON | + + + | Race | White | + + + | Ethnic Group | Not or | + + + Author + + + | Author | [facility] | + + + | Organization | [facility] | + + + | Address | Unknown | + + + | Phone | Unavailable | + + + Support + + + + + | Name | Relationship | Address | Phone | + + + + + | Mariajose Reece | ECON | [address] | | | | | [address] | | | | | [address] | | + + + + + Care Team Providers + +------+ + | Care Pear Picker Name | Role | Phone | + +------+ + | Kiek Velazquez MD | PCP | | + +------+ + Reason for Visit + + + | Reason | Comments | + + + | Pre-operative | | | evaluation | | + + + Encounter Details +--------+---------+ + + + | Date | Type | Department | Care Team | Description | +--------+---------+ + + + | 03/14/ | Office | Preoperative | Jenna Thurman NP | Pre-op evaluation | | 2009 | Visit | Medicine Clinic at | [address] | (Primary Dx); Other | | | | [address] | [place], [place] | diseases of nasal | | | | [address] | [address] | cavity and sinuses; | | | | Mailcode: [id number] | [phone] | Acquired deformity | | | | [facility] | | of nose; Scar | | | | and Healing, | | condition and | | | | Building 1[address]th Floor | | fibrosis of skin; | | | | [place], [place] | | Chronic | | | | [address] | | anticoagulation; | | | | [phone] | | Other specified | | | | | | pre-operative | | | | | | examination | +--------+---------+ + + + Social History [...] + + + | Blood Pressure | 116/62 | 03/14/2010 3:39 PM | | | | | PST | | + + + + + | Pulse | 56 | 03/14/2010 3:39 PM | | | | | PST | | + + + + + | Temperature | 36.4 C (97.5 F) | 03/14/2010 3:39 PM | | | | | PST | | + + + + + | Respiratory Rate | 18 | 03/14/2010 3:39 PM | | | | | PST | | + + + + + | Oxygen Saturation | 99% | 03/14/2010 3:39 PM | | | | | PST | | + + + + + | Inhaled Oxygen | - | - | | | Concentration | | | | + + + + + | Weight | 89.4 kg (197 lb) | 03/14/2010 3:39 PM | | | | | PST | | + + + + + | Height | 190.5 cm (6' 3") | 03/14/2010 3:39 PM | | | | | PST | | + + + + + | Body Mass Index | 24.62 | 03/14/2010 3:39 PM | | | | | PST | | + + + + + documented in this encounter Patient Instructions Patient Instructions Jenna Thurman, YEFRI - 03/14/2010 3:56 PM PSTPreparing for surgery g uidelines for surgery patients Do not eat or drink anything after midnight the night before surgery. TAKE the following medications with a sip of water on the morning of surgery: OxyCODONE-acetaminophen (PERCOCET) 5-325 mg Oral Tablet, Take 1 Tab by mouth every four cora rs as needed. Do not take any Aspirin, vitamin E or non-steroidal anti-inflammatory (NSAIDs i.e. Advil , Aleve, Ibuprofen) or herbal supplements seven days prior to your surgery. These drugs may interfere with normal blood clotting and may cause excessive bleeding and bruising during or after the surgery. Please see the list below for more products that contain Aspirin, Ibupro fen, or Vitamin E If you are taking Coumadin (warfarin), Plavix or any other blood thinners please let you r surgical team know as medication changes will be necessary. If you need a pain medication for general purposes, use Tylenol as directed. If you are in doubt about any medications that you are taking, please contact our office . AVOID THESE MEDICATIONS FOR 7 DAYS BEFORE SURGERY PRODUCTS CONTAINING ASPIRIN OR NON-STEROIDAL ANTI-INFLAMMATORY DRUGS (NSAIDs) Advil, Aleve, [employer], Anacin, Arthopan, Ascriptin, Aspergum, Aspirin with and without codeine, Kristian aspirin. Bufferin, Butalbital, Butazone, Cataflam, Clinoril, Co-Advil, Coges ic, Darvon, Daypro, Diclofenac, Diflunisal, Dipyridamole, Disalcid, Soto s, Dolene, Dolobi d, Easpirin, Etodolac, Feldene, Fenoprofen, Ibuprofen, Indocin, Indomethacin, Lodine, Meclof enamate, Menadol, Meprobamate/Aspirin, Midol, Motrin and Motrin IB, Nabumetone, Naproxen, No rgesic, Nuprin, Nytol, Nyquil, Orudis, Oruvail, Oxycodone and aspirin, Oxyphenbutazone, Pamp rin, Pepto Bismol, Percodan, Persantine, Phenylbutazone, Piroxicam, Propoxyphene, Relafen, R obomol, Rufen, Sine-aid, Yoe s cold tablets, Sulindac, Talwin, Tolectin, Triaminici n, Trigesic, Voltaren, Zorprin. OTHER PRODUCTS WHICH MAY PROMOTE BLEEDING Vitamin E, Gingko Biloba, Marine Fatty Acids, Garland-3 Fish Oil Supplements Important Guidelines Please do not to shave the surgical site at home before the surgery Do not smoke, drink alcohol or use recreational drugs for 24 hours before your surgery Do not eat any hard candy or chew gum after midnight the night before your surgery. Watch for any change in your health condition. Let your surgeon know right away if you do not feel well. Body hygiene: Take a bath or shower and remember to shampoo your hair using your usual hair product before your arrival at the hospital. Dental hygiene: Please remember to brush your teeth the night before and the morning of your procedure. Do not wear makeup, perfume, lotions or powder. Remove any nail portuguese from at least one fingernail. Do not wear any jewelry to the hospital. Wear loose, comfortable clothing. Bring the case and solution for your contact lenses or wear your glasses. Leave all your valuables at home. Allow enough travel time so you re not late for your check in for surgery. Pain management after surgery Following surgery, at regular intervals, your nurse will ask you to rate your pain on a scale of 0-10 (0 is no pain and 10 is the worst pain you can imagine). A variety of pain management strategies may be appropriate, such as intravenous medicati ons, oral medications, peripheral nerve bocks or epidural catheters that can deliver local a nesthetic to cover the area of your surgical incision. Please discuss this with your anesth esiologist to receive additional information about what might be appropriate for you. The goal for pain control therapy is to be comfortable enough to change your position, c ough and take deep breaths. You will be asked to do such activities to help prevent complic ations. Check in locations [facility] [phone], [facility] and [facility], fourth floor Check-in times for Hospital Admissions are not available until the day prior to surgery. So meone from your surgeon's office or the hospital will contact you with your check in time. I f you do not hear from anyone by 3:00 PM please call your surgeons' office for [id number] . Going Home Your surgeon will decide when you are medically ready to go home. If you are released to go home on the same day as your procedure/surgery please note the following: You will not be competent to drive and will require someone else to transport y ou home on the day of discharge since pain medications and physical activity restrictions li amisha your ability to drive safely. It is also required that you have someone assist you and look after you on the first night after you have undergone regional blocks, deep sedation, a nd/or general anesthesia. If you stayed in the hospital after surgery, please arrange for your ride to come for yo u around 9AM on the day your doctor says you can go home. Check out time is 11AM. If you have questions or concerns after you go home, call your doctor s office. If it is after office hours, call the [facility] cableway operator at [phone] and ask them to page your doc tor. You will require transportation home on the day of discharge. Pain medications and physi jose f activity restrictions may limit your ability to drive safely. It is also recommended th at you have someone assist you and look after you on the first night after you are released to go home. documented in this encounter Progress Notes Faisal Acosta - 03/14/2010 4:24 PM PSTVenipuncture performed in clinic, blood sample obtained from Right antecubital site Jenna Stevens NP - 03/14/2010 3:41 PM PSTPlease see scanned Preoperative Hist ory & Physical in the "Media" tab under ANESTHESIA PREOP EVALUATION and Centricity. Please a lso find additional test results under "Media" tab in [employer]. I spent 20 minutes in the care of this patient, > 50% of which was spent in counseling and coordination of care. All patient's questions clarified and answered satisfactorily. Vida Thurman, MSN, ACNP- Nurse Practitioner Pre-operative Medicine Clinic [facility], Mail code : [facility] [address] [place] [phone] (DIRECT LINE) (FAX) 2006 ACC/ AHA Perioperative Guidelines 1. Need for emergency noncardiac surgery? b. No -> Proceed to next step. 2. Active Cardiac Conditions? These conditions mandate further investigation and manageme nt. A. Acute PA within 7 days: no B. Unstable angina/Recent PA (7- 30 days): no C. Decompensated CHF: no D. Significant arrhythmia: None E. Severe valvular disease: NONE 3. Low risk surgery? a. Yes -> proceed with planned surgery. 4. Good functional capacity? (>4 METS)a. Yes -> proceed with surgery. Recommendations (based on risk factors): 0 risk factors- proceed with surgery 1- 2 risk factors- proceed with planned surgery with HR control or consider noninvasive clay ting if it will warp changer. 3 or more risk factors AND high risk surgery- consider testing if it will warp changer . documented in this enco unter Plan of Treatment +------+------+--------+ + + | Name | Type | Priori | Associated Diagnoses | Order Schedule | | | | ty | | | +------+------+--------+ + + | INR | Lab | Routin | Pre-op evaluation | Ordered: 03/14/2010 | | | | e | Other specified | | | | | | pre-operative | | | | | | examination | | +------+------+--------+ + + documented as of this encounter Procedures + +--------+ + + + | Procedure Name | Priori | Date/Time | Associated Diagnosis | Comments | | | ty | | | | + +--------+ + + + | 12 LEAD ECG | Routin | 03/14/2010 | Pre-op evaluation | Results for this | | | e | 4:55 PM | | procedure are in the | | | | PST | | results section. | + +--------+ + + + | VT COLLECTION VENOUS | Routin | 03/14/2010 | Other specified | | | BLOOD,VENIPUNCTURE | e | 4:24 PM | pre-operative | | | | | PST | examination | | + +--------+ + + + | INR | Routin | 03/14/2010 | | Results for this | | | e | 4:02 PM | | procedure are in the | | | | PST | | results section. | + +--------+ + + + | CBC ONLY | Routin | 03/14/2010 | Pre-op evaluation | Results for this | | | e | 4:02 PM | Chronic | procedure are in the | | | | PST | anticoagulation | results section. | + +--------+ + + + | APTT (ACT. PART. | Routin | 03/14/2010 | Pre-op evaluation | Results for this | | THROMBO TIME) | e | 4:02 PM | Chronic | procedure are in the | | | | PST | anticoagulation | results section. | + +--------+ + + + documented in this encounter Results 12 LEAD ECG (03/14/2010 4:55 PM PST) + + + + + + | Component | Value | Ref Range | Performed | Pathologist | | | | | At | Signature | + + + + + + | VENTRICULAR | 51 | BPM | [facility] | | | RATE | | | OF | | | | | | CARDIOLOGY | | + + + + + + | ATRIAL RATE | 51 | BPM | [facility] | | | | | | OF | | | | | | CARDIOLOGY | | + + + + + + | P-R | 156 | ms | [facility] | | | INTERVAL | | | OF | | | | | | CARDIOLOGY | | + + + + + + | QRS | 108 | ms | [facility] | | | DURATION | | | OF | | | | | | CARDIOLOGY | | + + + + + + | QT | 464 | ms | [facility] | | | | | | OF | | | | | | CARDIOLOGY | | + + + + + + | QTC | 427 | ms | [facility] | | | | | | OF | | | | | | CARDIOLOGY | | + + + + + + | P AXIS | 75 | degrees | [facility] | | | | | | OF | | | | | | CARDIOLOGY | | + + + + + + | R AXIS | 57 | degrees | [facility] | | | | | | OF | | | | | | CARDIOLOGY | | + + + + + + | T AXIS | 43 | degrees | [facility] | | | | | | OF | | | | | | CARDIOLOGY | | + + + + + + | EKG | Sinus | | [facility] | | | DIAGNOSIS | bradycardiaIncomplete | | OF | | | | right bundle branch | | CARDIOLOGY | | | | blockBorderline ECG"I | | | | | | have personally | | | | | | interpreted this report, | | | | | | either alone or with a | | | | | | trainee."Confirmed by | | | | | | VAN ROSENTHAL ([id number]) | | | | | | on 03/18/2010 12:34:28 | | | | | | PM | | | | + + + + + + + + | Specimen | + + | | + + + + + | Narrative | Performed At | + + + | Please click | [facility] | | on view image for the detailed interpretation from [employer] results. | CARDIOLOGY | + + + + + + + + | Performing | Address | City/State/Zipcode | Phone Number | | Organization | | | | + + + + + | [facility] | [address] | [place], [place] | | | CARDIOLOGY | [address] | [address] | | + + + + + INR (03/14/2010 4:02 PM PST) + + + + + + | Component | Value | Ref Range | Performed | Pathologist | | | | | At | Signature | + + + + + + | INR | 1.07Comment: | 0.90 - 1.20 INR | [facility] | | | | INR Therapeutic ranges | | DEPARTMENT | | | | for full | | OF | | | | anticoagulation: | | PATHOLOGY | | | | INR for Venous | | | | | | Thromboembolism | | | | | | (2.0-3.0) | | | | | | INR INR for most | | | | | | patients with mech. | | | | | | valves (2.5-3.5) | | | | | | INR | | | | + + + + + + + + | Specimen | + + | | + + + + + + + | Performing | Address | City/State/Zipcode | Phone Number | | Organization | | | | + + + + + | [facility] | [address] | [place] [address] | | | PATHOLOGY | [address] | | | + + + + + APTT (ACT. PART. THROMBO TIME) (03/14/2010 4:02 PM PST) + + + + + + | Component | Value | Ref Range | Performed | Pathologist | | | | | At | Signature | + + + + + + | APTT | 27.7Comment: | 26.0 - 36.0 | [facility] | | | | APTT Therapeutic Range | seconds | DEPARTMENT | | | | | | OF | | | | (75-120) | | PATHOLOGY | | | | sec | | | | | | Heparin levels of | | | | | | 0.35-0.7 U/mL | | | | + + + + + + + + | Specimen | + + | Blood - Blood | + + + + + + + | Performing | Address | City/State/Zipcode | Phone Number | | Organization | | | | + + + + + | [facility] DEPARTMENT OF | [address] | [place] [address] | | | PATHOLOGY | [address] | | | + + + + + CBC ONLY (03/14/2010 4:02 PM PST) + + + + + + | Component | Value | Ref Range | Performed | Pathologist | | | | | At | Signature | + + + + + + | WHITE CELL | 6.6 | 4.4 - 11.0 K/cu | [facility] | | | COUNT | | mm | DEPARTMENT | | | | | | OF | | | | | | PATHOLOGY | | + + + + + + | RED CELL | 4.73 | 4.50 - 5.90 | [facility] | | | COUNT | | M/cu mm | DEPARTMENT | | | | | | OF | | | | | | PATHOLOGY | | + + + + + + | HEMOGLOBIN | 15.9 | 13.5 - 17.5 | [facility] | | | | | g/dL | DEPARTMENT | | | | | | OF | | | | | | PATHOLOGY | | + + + + + + | HEMATOCRIT | 47.1 | 41.0 - 53.0 % | [facility] | | | | | | DEPARTMENT | | | | | | OF | | | | | | PATHOLOGY | | + + + + + + | MCV | 99.7 (H) | 80.0 - 96.0 fL | [facility] | | | | | | DEPARTMENT | | | | | | OF | | | | | | PATHOLOGY | | + + + + + + | MCHC | 33.8 | 33.4 - 35.5 | [facility] | | | | | g/dL | DEPARTMENT | | | | | | OF | | | | | | PATHOLOGY | | + + + + + + | RDW | 13.5 | 11.5 - 15.0 % | [facility] | | | | | | DEPARTMENT | | | | | | OF | | | | | | PATHOLOGY | | + + + + + + | PLATELET | 175 | 150 - 400 K/cu | [facility] | | | COUNT | | mm | DEPARTMENT | | | | | | OF | | | | | | PATHOLOGY | | + + + + + + + + | Specimen | + + | Blood - Blood | + + + + + + + | Performing | Address | City/State/Zipcode | Phone Number | | Organization | | | | + + + + + | [facility] DEPARTMENT OF | [address] | [place] [address] | | | PATHOLOGY | [address] | | | + + + + + documented in this encounter Visit Diagnoses + + | Diagnosis | + + | Pre-op evaluation - Primary Preoperative examination, unspecified | + + | Other diseases of nasal cavity and sinuses(478.19) Other diseases of nasal cavity and | | sinuses | + + | Acquired deformity of nose | + + | Scar condition and fibrosis of skin | + + | Chronic anticoagulation Encounter for long-term (current) use of anticoagulants | + + | Other specified pre-operative examination | + + documented in this encounter
--- OUTSIDE RECORDS SUMMARY | ~2019-09-14 | XMS | Encounter Summary ---
Demographics + + + | Address | [address] | | | [place] [address] | + + + | Home Phone | | + + + | Preferred Language | Unknown | + + + | Marital Status | | + + + | Christian Affiliation | NON | + + + | Race | White | + + + | Ethnic Group | Not or | + + + Author + + + | Author | [facility] | + + + | Organization | [facility] | + + + | Address | Unknown | + + + | Phone | Unavailable | + + + Support + + + + + | Name | Relationship | Address | Phone | + + + + + | Mariajose Reece | ECON | [address] | | | | [address] | | | | | [address] | | + + + + + Care Team Providers + +------+ + | Care Payment Specialist Name | Role | Phone | [...]
--- OUTSIDE RECORDS SUMMARY | ~2019-09-14 | XMS | Clinical Summary ---
Demographics + + + | Address | [address] | | | [place] [address] | + + + | Home Phone | | + + + | Preferred Language | Unknown | + + + | Marital Status | | + + + | Yarsanism Affiliation | Unknown | + + + | Race | Unknown | + + + | Ethnic Group | Unknown | + + + Author + + + | Author | [facility] | | | and [place] | + + + | Organization | [facility] | | | and [place] | + + + | Address | Unknown | + + + | Phone | Unavailable | + + + Support + + +---------+ + | Name | Relationship | Address | Phone | + + +---------+ + | Toshia Tawandacandidamiranda | ECON | Unknown | | + + +---------+ + Care Team Providers + +------+ + | Care Area Development Manager Name | Role | Phone | + +------+ + | Varun hKalil MD | PCP | | + +------+ + Allergies Not on File Medications + + + +---------+------+------+-------+ | Medication | Sig | Dispensed | Refills | Star | End | Statu | | | | | | t | Date | s | | | | | | Date | | | + + + +---------+------+------+-------+ | MULTIPLE | Take by mouth | | 0 | 10/0 | | Activ | | VITAMINS-MINERALS PO | daily. | | | 9/20 | | e | | | | | | 18 | | | + + + +---------+------+------+-------+ | Methylcellulose, | Take 500 mg by mouth | | 0 | 10/0 | | Activ | | Laxative, (CITRUCEL) | 2 (two) times | | | 9/20 | | e | | 500 MG TABS | daily. | | | 18 | | | + + + +---------+------+------+-------+ | clopidogrel | Take 75 mg by mouth | | 0 | 10/0 | | Activ | | (PLAVIX) 75 mg | daily. | | | 9/20 | | e | | tablet | | | | 18 | | | + + + +---------+------+------+-------+ | Melatonin 5 MG | Take 5 mg by mouth | | 0 | 10/0 | | Activ | | CAPS | daily. | | | 9/20 | | e | | | | | | 18 | | | + + + +---------+------+------+-------+ | sildenafil | Take 100 mg by mouth | | 0 | 10/0 | | Activ | | (VIAGRA) 100 MG | as needed for | | | 9/20 | | e | | tablet | Erectile | | | 18 | | | | | Dysfunction. | | | | | | + + + +---------+------+------+-------+ | aspirin 325 mg | Take 325 mg by mouth | | 0 | 10/0 | | Activ | | tablet | daily with | | | 9/20 | | e | | | breakfast. | | | 18 | | | + + + +---------+------+------+-------+ | rosuvastatin | Take 40 mg by mouth | | 0 | 10/0 | | Activ | | (CRESTOR) 40 MG | daily. | | | 9/20 | | e | | tablet | | | | 18 | | | + + + +---------+------+------+-------+ | raNITIdine | Take 150 mg by mouth | | 0 | 10/0 | | Activ | | (ZANTAC) 150 mg | 2 (two) times | | | 9/20 | | e | | tablet | daily. | | | 18 | | | + + + +---------+------+------+-------+ | cholecalciferol | Take 1,000 Units by | | 0 | 10/0 | | Activ | | (CHOLECALCIFEROL) | mouth daily. | | | 9/20 | | e | | 1000 units TABS | | | | 18 | | | + + + +---------+------+------+-------+ | Turmeric Curcumin | Take 500 mg by | | 0 | 10/0 | | Activ | | 500 MG CAPS | mouth. | | | 9/20 | | e | | | | | | 18 | | | + + + +---------+------+------+-------+ Active Problems Not on file Immunizations + + + + | Name | Administration Dates | Next Due | + + + + | DTAP, 5 DOSE (PED) | 05/15/2015 | | + + + + | Hep B (PED/ADOL) 3 | 01/06/2017 | | | DOSE | | | + + + + | PNEUMOCOCCAL | 04/26/2014 | | | CONJUGATE 13-VALENT | | | | (PCV13) | | | + + + + | PNEUMOCOCCAL | 05/15/2015 | | | POLYSACCHARIDE | | | | 23-VALENT (PPSV23) | | | + + + + | ZOSTER, 1 DOSE | 09/29/2006 | | | (ZOSTAVAX) | | | + + + + Family History + + +------+ + | Medical History | Relation | Name | Comments | + + +------+ + | Coronary artery | Brother | | [place] x 3 | | disease | | | | + + +------+ + | Arrhythmia | Father | | bradycardia | + + +------+ + | Heart failure | Mother | | | + + +------+ + | Diabetes | Son | | | + + +------+ + + +------+ + + | Relation | Name | Status | Comments | + +------+ + + | Brother | | | CAD | | | | (Age | | | | | 65) | | + +------+ + + | Brother | | | | + +------+ + + | Daughter | | Alive | | + +------+ + + | Daughter | | Alive | | + +------+ + + | Father | | | old age | | | | (Age | | | | | 92) | | + +------+ + + | Father | | | | + +------+ + + | Mother | | | CHF | | | | (Age | | | | | 84) | | + +------+ + + | Mother | | | | + +------+ + + | Sister | | | unknown | | | | (Age | | | | | 88) | | + +------+ + + | Son | | Alive | | + +------+ + + | Son | | | | + +------+ + + Social History + +-------+ +--------+------+ [...] + + + | Blood Pressure | 100/60 | 08/18/2018 2:13 PM | | | | | PDT | | + + + + + | Pulse | 63 | 08/18/2018 2:13 PM | | | | | PDT | | + + + + + [...] + + + + | Weight | 89.8 kg (198 lb) | 08/18/2018 2:13 PM | | | | | PDT | | + + + + + | Height | 190.5 cm (6' 3") | 08/18/2018 2:13 PM | | | | | PDT | | + + + + + | Body Mass Index | 24.75 | 08/18/2018 2:13 PM | | | | | PDT | | + + + + + Plan of Treatment + + + + + | Health Maintenance | Due Date | Last Done | Comments | + + + + + | Vaccine: Zoster (2 | | 09/29/2006 | | | of 3) | 7 | | | + + + + + | Adult Annual | | | | | Wellness Visit | 9 | | | + + + + + | Vaccine: Influenza | | | | | (Season Ended) | 0 | | | + + + + + | Vaccine: | | 05/15/2015 | | | Dtap/Tdap/Td (2 - | 6 | | | | Tdap) | | | | + + + + + | Vaccine: | Completed | 05/15/2015, 04/26/2014 | | | Pneumococcal 65+ | | | | + + + + + Results Not on filefrom Last 3 Months
--- OUTSIDE RECORDS SUMMARY | ~2019-09-14 | XMS | Encounter Summary ---
Demographics + + + | Address | [address] | | | [place] [address] | + + + | Home Phone [...] + + | Author | [facility] | + + + | Organization | [facility] | + + + | Address | Unknown | + + + | Phone | Unavailable | + + + Support + + + + + | Name | Relationship | Address | Phone | + + + + + | Mariajose Reece | ECON | [address] | | | | | [address] | | | | | [address] | | + + + + + Care Team Providers + +------+ + | Care Electronic Warfare Technician Name | Role | Phone | + [...] Plastic | | Darrin Moura MD | [address] | | | | Surgery | | [address] | | | | | | Health ENT | [facility] | | | | | | [address] | [place], [place] | | | | | | Ave [address] | [address] | | | | | | [address], | Phone: | | | | | | [place] [address] | [phone] | | | | | | Phone: | Fax: | | | | | | [phone] | [phone] | | | | | | Fax: | | | | | | | [phone] | | +--------+--------+ + + + + [...] | | | Reconstructive | [address] [place], | of nose; Postop | | | | Services at [facility] | [place] [address] | check | | | | [address] | [phone] | | | | | Mailcode: CH5E | | | | | | [facility] | | | | | | and Healing, | | | | | | Building 1, 5th | | | | | | Floor [place], [place] | | | | | | [address] | | | | | | [phone] | | | +--------+---------+ + + + [...] 9:36 AM PDTClinic: Facial Plastic and Reconstructive [facility] Zoltan Reece is a 80 y.o. male [...] Surgery Dept. of Otolaryngology/Head and Neck Surgery [facility] [place] tel fax email [email or web address] Caraballo - 07/06/2010 9 :02 AM PDTAdditional staff [...]
--- OUTSIDE RECORDS SUMMARY | ~2019-09-14 | XMS | Encounter Summary ---
Demographics + + + | Address | [address] | | | [place] [address] | + + + | Home Phone | | + + + | Preferred Language | Unknown | + + + | Marital Status | | + + + | Alevism Affiliation | NON | + + + | Race | White | + + + | Ethnic Group | Not or | + + + Author + + + | Author | [facility] | + + + | Organization | [facility] | + + + | Address | Unknown | + + + | Phone | Unavailable | + + + Support + + + + + | Name | Relationship | Address | Phone | + + + + + | Mariajose Reece | ECON | [address] | | | | [address] | | | | | [address] | | + + + + + Care Team Providers + +------+ + | Care Insole And Outsole Preparer Name | Role | Phone | + +------+ + | Kike Velazquez MD | PCP | | + +------+ + Reason for Visit + + + | Reason | Comments | + + + | Pre-op evaluation | | + + + Encounter Details +--------+---------+ + + + | Date | Type | Department | Care Team | Description | +--------+---------+ + + + | 03/14/ | Office | Otolaryngology | Moise Baldwin MD | Other specified | | 2009 | Visit | Facial Plastics & | [address] | pre-operative | | | | Reconstructive | Savanah [place], | examination (Primary | | | | Services at [facility] | [place] [address] | Dx) | | | | [address] | [phone] | | | | | Mailcode: CH5E | | | | | | [facility] | | | | | | and Healing, | | | | | | Building 1, 5th | | | | | | Floor [place], [place] | | | | | | [address] | | | | | | [phone] | | | +--------+---------+ + + + [...] + + documented as of this encounter Patient Instructions Patient Instructions Kaelyn Aguayo MD - 03/08/2010 4:22 PM PSTRegistration Locations (please check in at one of the following registration desks prior to surgery) For surgeries scheduled to take place on the hill at the [facility]: Surgeries scheduled in the [facility] ([facility]): registration is located on the 4th floor of [facility] (Day Surgery). Surgeries scheduled in the [facility]: registration is located on the 9th floor. Surgeries scheduled in [facility]: registration is located on the 6th floor. Surgeries scheduled in the [facility]: registration is located i n the [facility] on the first floor. For surgeries scheduled to take place at the [facility]: registration is l ocated on the 4th floor (Surgery Center). Important Information Due to the increased prevalence of pests in our community, we are asking patients to partne r with us to keep our hospital clean. If you have noticed bugs or other pests in your home, on your belongings or on your body, please contact your doctor's office prior to your admis angela. For your safety and protection, please limit what you bring to the hospital. All valuables should be left at home. This includes pillows, blankets, clothing, purses, wallets, money an d jewelry. Patients may not bring personal electronics into the hospital, including hairdry ers, electric suleiman, radios and CD players. If you use specialized medical equipment at [facility], please check with your provider before bringing it with you into the hospital. Registration Process for all Admissions/Surgeries 1. Please bring your insurance card(s) with you and be prepared to pay any co-payment, co-i nsurance or deposit that may be required. 2. Once you arrive at the registration desk, you will be interviewed by a Patient Access Se rvice Specialist (BONNIE). Demographics will be verified (example: name, date of , Social Security Number, address, insurance). 3. You will be asked to sign some paperwork: Terms and Conditions of Service, Notice of Letty vacy Practices Acknowledgement and Genetic Testing Opt Out. 4. You will be given some paperwork: copies of any forms signed by you, Patient Rights, Res ponsibilities and Safety, Understanding Advance Directives, and Smoking Cessation Brochure.E lectronically signed by Kaelyn Aguayo MD at 03/08/2010 4:22 PM PST documented in this encounter Progress Notes Moise Baldwin MD - 03/16/2010 8:28 AM PSTClinic: Facial Plastic and Reconstructive Surgery [facility] Zoltan Reece is a 80 y.o. male who comes in today for a preoperative visit. We are planning to perform septorhinoplasty with possible composite grafting to try and improve his nasal airway. We took care of the paperwork and answered all questions. Surgical consent was obtained. Photos were taken. Routine prescriptions given, including keflex and percocet. I have reviewed the patient's H&P and he is otherwise healthy for surgery. Patient is all set for upcoming surgery. Moise Baldwin MD FACS Professor Facial Plastic and Reconstructive Surgery Dept. of Otolaryngology/Head and Neck Surgery [facility] Rosie [email or web address] Milan Mortensen - 03/14/2010 2 :45 PM PSTAdditional staff support provided to the patient during this encounter included: Health maintenance reviewed and documented. documented in this encounter Plan of Treatment Not on filedocumented as of this encounter Visit Diagnoses + + | Diagnosis | + + | Other specified pre-operative examination - Primary | + + documented in this encounter"
--- OUTSIDE RECORDS SUMMARY | ~2019-09-14 | XMS | Encounter Summary ---
Demographics + + + | Address | [address] | | | [place] [address] | + + + | Home Phone | | + + + | Preferred Language | Unknown | + + + | Marital Status | | + + + | Gnosticist Affiliation | NON | + + + | Race | White | + + + | Ethnic Group | Not or | + + + Author + + + | Author | [facility] | + + + | Organization | [facility] | + + + | Address | Unknown | + + + | Phone | Unavailable | + + + Support + + + + + | Name | Relationship | Address | Phone | + + + + + | Mariajose Reece | ECON | [address] | | | | [address] | | | | | [address] | | + + + + + Care Team Providers + +------+ + | Care Membership Sales Advisor Name | Role | Phone | + +------+ + | Kike Velazquez MD | PCP | | + +------+ + Encounter Details +--------+ + + + + | Date | Type | Department | Care Team | Description | +--------+ + + + + | 03/14/ | Hospital | Cardiac | Sjh, Car Ecg Tech | | | 2009 | Encounter | Non-Invasive Testing | [address] | | | | | at [address] | [facility] | | | | | [address] | [place] [address] | | | | | [address] | | | | | | Huang, [facility] floor | | | | | | [place], [place] | | | | | | [address] | | | | | | [phone] | | | +--------+ + + + [...] + + + +---------+ + + | QR-Tas-Endmu | Take by mouth. | | 0 [...] | | | | | V[place] ([id number]) | | | | | | on 03/18/2010 12:34:28 | | | | | | PM | | | | + + + + + + + + | Specimen | + + | | + + + + + | Narrative | Performed At | + + + | Please click | [facility] | | on view image for the detailed interpretation from [employer] results. | CARDIOLOGY | + + + + + + + + | Performing | Address | City/State/Zipcode | Phone Number | | Organization | | | | + + + + + | [facility] | [address] | [place], [place] | | | CARDIOLOGY | [address] | [address] | | + + + + + documented in this encounter Visit Diagnoses Not on filedocumented in this encounter
--- OUTSIDE RECORDS SUMMARY | ~2019-09-14 | XMS | Encounter Summary ---
Demographics + + + | Address | [address] | | | [place] [address] | + + + | Home Phone | | + + + | Preferred Language | Unknown | + + + | Marital Status | | + + + | Orthodox Affiliation | Unknown | + + + | Race | Unknown | + + + | Ethnic Group | Unknown | + + + Author + + + | Author | [facility] | | | and [place] | + + + | Organization | [facility] | | | [...] Team Providers + +------+ + | Care Operations And Maintenance Manager Name | Role | Phone | + +------+ + PCP | Unavailable | + +------+ + Encounter Details +--------+ + + + + | Date | Type | Department | Care Team | Description | +--------+ + + + + | 09/16/ | [facility] | [facility] | | | | 2000 | Encounter | MED CTR GENERIC OP | | | | | | CONV DEPT [address] | | | | | | [place], | | | | | | [place] [address] | | | | | | [phone] | | | +--------+ + + + [...]
--- OUTSIDE RECORDS SUMMARY | ~2019-09-14 | XMS | Encounter Summary ---
Demographics + + + | Address | [address] | | | [place] [address] | + + + | Home Phone | | + + + | Preferred Language | Unknown | + + + | Marital Status | | + + + | Anabaptist Affiliation | NON | + + + [...] [address] | | | | | [address] | | + + + + + Care Team Providers + +------+ + | Care Wind Turbine Erector Name | Role | Phone | + [...]
--- OUTSIDE RECORDS SUMMARY | ~2019-09-14 | XMS | Encounter Summary ---
Demographics + + + | Address | [address] | | | [place] [address] | + + + | Home Phone | | + + + | Preferred Language | Unknown | + + + | Marital Status | | + + + | Mormon Affiliation | NON | + + + [...] [address] | | | | | [address] | | + + + + + Care Team Providers + +------+ + | Care Compliance Associate Name | Role | Phone | + [...] | | | | [address] | [place], [place] | | | | | | Ave [address] | [address] | | | | | | [address], | Phone: | | | | | | [place] [address] | [phone] | | | | | | Phone: | Fax: | | | | | | [phone] | [phone] | | | | | | Fax: | | | | | | | [phone] | | +--------+--------+ + + + + [...] | | | | Reconstructive | [address] [facility], | acquired; Deflected | | | | Services at [facility] | [place] [address] | nasal septum | | | | [address] | [phone] | | | | | Mailcode: AMARJIT | | | | | | [facility] | | | | | | and Healing, | | | | | | Building 1, 5th | | | | | | Floor [place], [place] | | | | | | [address] | | | | | | [phone] | | | +--------+---------+ + + + [...] This patient is referred by SHERIDAN HOFFMANN [address] [place] [id number]. 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 Bilateral [...] Surgery Dept. of Otolaryngology/Head and Neck Surgery [facility] tel fax email [email or web address] Milan Zepeda - 01/15/2010 10 :18 AM PDT Additional staff support provided to the patient during this encounter included: Health maintanance reviewed and documented. Medication(s) reviewed this encounter: Outpatient encounter prescriptions as of 01/15/2010 Medication Sig Dispense Refill aspirin 325 mg Oral Tablet Take 325 mg by mouth once daily. clopidogrel (PLAVIX) 75 mg Oral Tablet Take 75 mg by mouth once daily. TY-Blh-Jnple Acid-Lutein (CENTRUM SILVER) 500-250 mcg Oral Tablet, [...]
--- OUTSIDE RECORDS SUMMARY | ~2019-09-14 | XMS | Encounter Summary ---
Demographics + + + | Address | [address] | | | [place] [address] | + + + | Home Phone | | + + + | Preferred Language | Unknown | + + + | Marital Status | | + + + | Rastafari Affiliation | Unknown | + + + | Race | Unknown | + + + | Ethnic Group | Unknown | + + + Author + + + | Author | [facility] | | | and [place] | + + + | Organization | [facility] | | | and [...] Team Providers + +------+ + | Care Block Tester Name | Role | Phone | + +------+ + PCP | Unavailable | + +------+ + Encounter Details +--------+ + + + + | Date | Type | Department | Care Team | Description | +--------+ + + + + | 09/16/ | [facility] | [facility] | | | | 2000 | Encounter | MED CTR GENERIC OP | | | | | | CONV DEPT [address] | | | | | | [place], | | | | | | [place] [address] | | | | | | [phone] | | | +--------+ + + + [...]
--- OUTSIDE RECORDS SUMMARY | ~2019-09-14 | XMS | Encounter Summary ---
Demographics + + + | Address | [address] | | | [place] [address] | + + + | Home Phone | | + + + | Preferred Language | Unknown | + + + | Marital Status | | + + + | Synagogue Affiliation | Unknown | + + + | Race | Unknown | + + + | Ethnic Group | Unknown | + + + Author + + + | Author | [facility] | | | and [place] | + + + | Organization | [facility] | | | [...] Team Providers + +------+ + | Care Tile Molder Name | Role | Phone | + +------+ + | Varun Khalil MD | PCP | | + +------+ + Encounter Details +--------+ + + + + | Date | Type | Department | Care Team | Description | +--------+ + + + + | 01/13/ | Orders Only | [facility] GENERIC OP | Conversion | | | 2018 | | CONVERSION DEP [address] | Transaction, | | | | | [address] | Provider Unknown | | | | | [place] | [phone] | | | | | [address] | | | | | | [phone] | | | +--------+ + + + [...]
--- OUTSIDE RECORDS SUMMARY | ~2019-09-14 | XMS | Encounter Summary ---
Demographics + + + | Address | [address] | | | [place] [address] | + + + | Home Phone | | + + + | Preferred Language | Unknown | + + + | Marital Status | | + + + | Buddhist Affiliation | NON | + + + [...] [address] [place] | | | | | [address] | | + + + + + Care Team Providers + +------+ + | Care Regional Safety Manager Name | Role | Phone | [...] | | | | | | Mailcode: [facility] | | | | | | | Center | | | | | | | for Health | | | | | | | and Healing, | | | | | | | Building [address] | | | | | | | [place], [place] | | | | | | | [address] | | | | | | | Phone: | | | | | | | [phone] | | | | | | | Fax: | | | | | | | [phone] | +--------+--------+ + + + + Encounter [...] | | | | | Ave Mailcode: [facility] | Savanah Hernandez [place], | | | | | [facility] | [place] [address] | | | | | Health and Healing, | [phone] | | | | | [address] | | | | | | [place], [place] | | | | | | [address] | | | | | | [phone] | | | +--------+ + + + [...] + + + +---------+ + + | [facility] | Take by mouth. | | 0 [...] Performed At | + + + | [id number] | | | [id number] | | | [id number] VANGIE Baez [id number] | | | Date: 03/15/2010 Attending Surgeon: | | | Moise Baldwin M.D. Banquet Steward(s): | | | ADDENDUM The dimensions of full-thickness skin graft harvested | | | were 3 cm x 1.5 cm, and the dimensions of the final graft were 1.8 | | | cm in length x 1 cm in width. Moise Baldwin M.D. | | | Facial Plastic and Reconstructive Surgery TD / [id number] / | | | [id number] / [id number] / | | + + + + + | Procedure Note | + + | Moise Baldwin MD - 04/06/2010 7:49 AM PST [id number] | | [id number] VANGIE SIDDIQUI | | G [id number] Date: 03/15/2010 Attending Surgeon: | | Moise Baldwin M.D. Banquet Steward(s): ADDENDUM The dimensions of full-thickness skin | | graft harvested were 3 cm x 1.5 cm,and the dimensions of the final graft were 1.8 cm in | | length x 1 cm inwidth. Moise Baldwin M.D.Facial Plastic and Reconstructive Surgery | | TDW / [id number] / [id number] / [id number] / T: 04/05/2010 | |Attending Surgeon: Moise Baldwin M.D. | | | | | |Banquet Steward(s): | | | | | |ADDENDUM | [...] | | | |TDW / HS | |[id number] / [id number] / [id number] / | | | | | | | | | | | | | | | | | | | | | + + OPERATION RECORD (03/15/2010 12:00 AM PST) + + + | Narrative | Performed At | + + + | [id number] | | | [id number] | | | [id number] VANGIE Baez [id number] | | | Date: 03/15/2010 Attending Surgeon: | | | Moise Baldwin M.D. Banquet Steward(s): | | | Sachin Taylor MD | [...] crest. A segment of the posterior inferior xtd-jbvf-obzgpan | | | quadrangular cartilage was resected [...] Plastic and | | | Reconstructive Surgery [facility] / [id number] / [id number] / [id number] / D: | | | 03/15/2010 | | + + + + + | Procedure Note | + + | Moise Baldwin MD - 03/16/2010 9:56 AM PST [id number] | | [id number] NIKKICHAI ARTUR | | G [id number] Date: 03/15/2010 Attending Surgeon: | | Moise Baldwin M.D. Banquet Steward(s): Sachin Taylor MD | | Shay Giron [...] maxillary crest. A segment of the posterior ghdgsbqnfjm-cxca-vszamzs | | quadrangular cartilage was resected for [...] M.D.Facial Plastic and Reconstructive Surgery [facility] / [id number] / [id number] | | / [id number] / T: 03/16/2010 | | | | | |The deviated septum was approached from above with elevation of the left | |mucoperichondrial flap. The posterior bony cartilaginous junction was | |disarticulated, and posteriorly, the deviated bony septum was resected | |along with the inferiorly deviated strip of cartilaginous septum and | |deviated bony maxillary crest. A segment of the posterior inferior | |nja-hlad-dhusirf quadrangular cartilage was resected for grafting purposes [...] | | | |TDW / HS | |[id number] / [id number] / [id number] / | | | | | | [...]
--- OUTSIDE RECORDS SUMMARY | ~2019-09-14 | XMS | Clinical Summary ---
Demographics + + + | Address | [address] | | | [place] [address] | + + + | Home Phone | | + + + | Preferred Language | Unknown | + + + | Marital Status | | + + + | Roman Catholic Affiliation | Unknown | + + + | Race | Unknown | + + + | Ethnic Group | Unknown | + + + Author + + + | Author | [facility] | | | and [place] | + + + | Organization | [facility] | | | and [...] Team Providers + +------+ + | Care Instructional Consultant Name | Role | Phone | + [...] | Coronary artery | Brother | | AR x 3 | | disease | | [...]
--- OUTSIDE RECORDS SUMMARY | ~2019-09-14 | XMS | Encounter Summary ---
Demographics + + + | Address | [address] | | | [place] [address] | + + + | Home Phone | | + + + | Preferred Language | Unknown | + + + | Marital Status | | + + + | Temple Affiliation | NON | + + + | Race | White | + + + | Ethnic Group | Not or | + + + Author + + + | Author | [facility] | + + + | Organization | [facility] | + + + | Address | Unknown | + + + | Phone | Unavailable | + + + Support + + + + + | Name | Relationship | Address | Phone | + + + + + | Mariajose Reece | ECON | [address] | | | | [address] [place] | | | | | [address] | | + + + + + Care Team Providers + +------+ + | Care Production Posting Clerk Name | Role | Phone | + [...] | | | Reconstructive | [address] [place], | of nose | | | | Services at [facility] | [place] [address] | | | | | [address] | [phone] | | | | | Mailcode: 5E | | | | | | [facility] | | | | | | and Healing, | | | | | | Building 1, 5th | | | | | | Floor [place], [place] | | | | | | [address] | | | | | | [phone] | | | +--------+---------+ + + + [...] PM PSTClinic: Facial Plastic and Reconstructive Surge [facility] Kym Fiore PA-C, am functioning as a scribe for Moise Baldwin MD, FACS. Zoltan Reece is a 80 y.o. [...] pleased with [facility] progress [facility] this [facility]. I have reviewed and verified the above scribed note of my visit with this patient as record ed by Kym Brock PA-C. Moise Baldwin MD FACS Professor Facial Plastic and Reconstructive Surgery Dept. of Otolaryngology/Head and Neck Surgery [facility] tel fax email [email or web address] documented in this encounte r Plan of Treatment Not on filedocumented as of this encounter Visit Diagnoses + + | Diagnosis | + + | Nasal obstruction Other diseases of nasal cavity and sinuses | + + | Acquired deformity of nose | + + documented in this encounter
--- OUTSIDE RECORDS SUMMARY | ~2019-09-14 | XMS | Encounter Summary ---
Demographics + + + | Address | [address] | | | [place] [address] | + + + | Home Phone [...] [address] [place] | | | | | [address] | | + + + + + Care Team Providers + +------+ + | Care Telegraph Service Clerk Name | Role | Phone | [...] | | | Reconstructive | [address] [place], | examination (Primary | | | | Services at [facility] | [place] [address] | Dx) | | | | [address] | [phone] | | | | | Mailcode: CH5E | | | | | | [facility] | | | | | | and Healing, | | | | | | Building 1, 5th | | | | | | Floor [place], [place] | | | | | | [address] | | | | | | [phone] | | | +--------+---------+ + + + [...] take place on the hill at the [facility]: Surgeries scheduled in the [facility] (4 North): registration is located on the 4th floor of [facility] (Day Surgery). Surgeries scheduled in the [facility]: registration is located on the 9th floor. Surgeries scheduled in [facility]: registration is located on the 6th floor. Surgeries scheduled in the [facility]: registration is located i n the [facility] on the first floor. For surgeries scheduled to take place at the [facility]: registration is l ocated on the 4th [...] If you use specialized [facility], please check with your provider before [...] AM PSTClinic: Facial Plastic and Reconstructive Surgery [facility] Zoltan Reece is a 80 y.o. [...] Surgery Dept. of Otolaryngology/Head and Neck Surgery [facility] [place] [email or web address] Milan Mortensen - 03/14/2010 2 :45 PM [...]
--- OUTSIDE RECORDS SUMMARY | ~2019-09-14 | XMS | Encounter Summary ---
Demographics + + + | Address | [address] | | | [place] [address] | + + + | Home Phone | | + + + | Preferred Language | Unknown | + + + | Marital Status | | + + + | Adventism Affiliation | NON | + + + | Race | White | + + + | Ethnic Group | Not or | + + + Author + + + | Author | [facility] | + + + | Organization | [facility] | + + + | Address | Unknown | + + + | Phone | Unavailable | + + + Support + + + + + | Name | Relationship | Address | Phone | + + + + + | Mariajose Reece | ECON | [address] | | | | [address] | | | | | [address] | | + + + + + Care Team Providers + +------+ + | Care Physical Sciences Professor Name | Role | Phone | + +------+ + | Kike Velazquez MD | PCP | | + +------+ + Encounter Details +--------+ + + + + | Date | Type | Department | Care Team | Description | +--------+ + + + + | 06/20/ | Hospital | Dermatopathology | | | | 2017 | Encounter | [address] | | | | | | Mailcode: CH16D | | | | | | [facility] | | | | | | and Healing, | | | | | | Building , | | | | | | Floor [place], [place] | | | | | | [address] | | | | | | [phone] | | | +--------+ + + + [...] + + + +---------+ + + | IU-Nbg-Dhavg | Take by mouth. | | 0 [...] + | DERM PATHOLOGY | Routin | 06/20/2016 | Scar conditions | Results for this | | | e | | and fibrosis of skin | procedure are in the | | | | | | results section. | + +--------+ + + + documented in this encounter Results DERM PATHOLOGY (06/20/2016) + + + + + + | Component | Value | Ref Range | Performed | Pathologist | | | | | At | Signature | + + + + + + | DERMATOPATH | SOURCE OF SPECIMEN:A Lt. | | [facility] | | | OLOGY(WET | abdomen, excision | | DERMATOPATH | | | MNT) | CLINICAL | | OLOGY | | | | DESCRIPTION:R/o residual | | | | | | SCC. GROSS | | | | | | DESCRIPTION:Received in | | | | | | formalin is a specimen | | | | | | labeled Chevy, | | | | | | Zoltan:A: Specimen is | | | | | | labeled "L abdomen" and | | | | | | consists of an | | | | | | elliptical excisionof | | | | | | mpkvp-ead-qiwjl skin, | | | | | | [id number]. The surgical | | | | | | margin is inked black; | | | | | | thetissue is serially | | | | | | sectioned, and entirely | | | | | | submitted in cassette | | | | | | A1. MICROSCOPIC | | | | | | DESCRIPTION:There are an | | | | | | increased number of | | | | | | collagen bundles with | | | | | | fibrocytes | | | | | | arrangedparallel to the | | | | | | skin surface with | | | | | | vertically oriented | | | | | | blood vessels. | | | | | | DIAGNOSIS:SCAR, WITH NO | | | | | | RESIDUAL SQUAMOUS CELL | | | | | | CARCINOMA IDENTIFIED. 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
--- OUTSIDE RECORDS SUMMARY | ~2019-09-14 | XMS | Encounter Summary ---
Demographics + + + | Address | [address] | | | [place] [address] | + + + | Home Phone | | + + + | Preferred Language | Unknown | + + + | Marital Status | | + + + | Hindu Affiliation | NON | + + + | Race | White | + + + | Ethnic Group | Not or | + + + Author + + + | Author | [facility] | + + + | Organization | [facility] | + + + | Address | Unknown | + + + | Phone | Unavailable | + + + Support + + + + + | Name | Relationship | Address | Phone | + + + + + | Mariajose Reece | ECON | [address] | | | | [address] [place] | | | | | [address] | | + + + + + Care Team Providers + +------+ + | Care Data Capture Clerk Name | Role | Phone | [...] Plastic | | Darrin Moura MD | [address] | | | | Surgery | | Keira | Gene [facility]anco | | | | | | Health ENT | [facility] | | | | | | [address] | [place], [place] | | | | | | Ave [address] | [address] | | | | | | [address], | Phone: | | | | | | [place] [address] | [phone] | | | | | | Phone: | Fax: | | | | | | [phone] | [phone] | | | | | | Fax: | | | | | | | [phone] | | +--------+--------+ + + + + [...] | | | Reconstructive | [address] [place], | of nose; Postop | | | | Services at [facility] | [place] [address] | check | | | | [address] | [phone] | | | | | Mailcode: CH5E | | | | | | [facility] | | | | | | and Healing, | | | | | | Building 1, 5th | | | | | | Floor [place], [place] | | | | | | [address] | | | | | | [phone] | | | +--------+---------+ + + + [...] 9:36 AM PDTClinic: Facial Plastic and Reconstructive [facility] Zoltan Reece is a 80 y.o. [...] Dept. of Otolaryngology/Head and Neck Surgery [facility] [place] tel fax email [email or web address] ilan Caraballo - 07/06/2010 9 :02 AM [...]
--- OUTSIDE RECORDS SUMMARY | ~2019-09-14 | XMS | Encounter Summary ---
Demographics + + + | Address | [address] | | | [place] [address] | + + + | Home Phone | | + + + | Preferred Language | Unknown | + + + | Marital Status | | + + + | Bahai Affiliation | NON | + + + | Race | White | + + + | Ethnic Group | Not or | + + + Author + + + | Author | [facility] | + + + | Organization | [facility] | + + + | Address | Unknown | + + + | Phone | Unavailable | + + + Support + + + + + | Name | Relationship | Address | Phone | + + + + + | Mariajose Reece | ECON | [address] | | | | [address] | | | | | [address] | | + + + + + Care Team Providers + +------+ + | Care Regrind Mill Operator Name | Role | Phone | + +------+ + | Kike Velazquez MD | PCP | | + +------+ + Encounter Details +--------+ + + + + | Date | Type | Department | Care Team | Description | +--------+ + + + + | 03/08/ | Hospital | Dermatopathology | | | | 2016 | Encounter | [address] | | | | | | Mailcode: CH16D | | | | | | [facility] | | | | | | and Healing, | | | | | | Building , | | | | | | Floor [place], [place] | | | | | | [address] | | | | | | [phone] | | | +--------+ + + + [...] + + + +---------+ + + | LK-Shc-Nyvnu | Take by mouth. | | 0 [...] papular | | | | | | nzgsn-uak-sdq skin, | | | | | | [id number]. The surgical | | | | | [...] | | | | | | papular mfkia-eky-ifpdw | | | | | | skin, 4v2u5je. The | | | | | | [...] papular | | | | | | pgspu-tkql-nbe skin, | | | | | | 3g9k6hc. 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
--- OUTSIDE RECORDS SUMMARY | ~2019-09-14 | XMS | Encounter Summary ---
Demographics + + + | Address | [address] | | | [place] [address] | + + + | Home Phone | | + + + | Preferred Language | Unknown | + + + | Marital Status | | + + + | Quaker Affiliation | NON | + + + | Race | White | + + + | Ethnic Group | Not or | + + + Author + + + | Author | [facility] | + + + | Organization | [facility] | + + + | Address | Unknown | + + + | Phone | Unavailable | + + + Support + + + + + | Name | Relationship | Address | Phone | + + + + + | Mariajose Reece | ECON | [address] | | | | [address] | | | | | [address] | | + + + + + Care Team Providers + +------+ + | Care Fast Food Fry Cook Name | Role | Phone | + +------+ + | Kike Velazquez MD | PCP | | + +------+ + Encounter Details +--------+ + + + + | Date | Type | Department | Care Team | Description | +--------+ + + + + | 03/08/ | Hospital | Dermatopathology | | | | 2016 | Encounter | [address] | | | | | | Mailcode: CH16D | | | | | | [facility] | | | | | | and Healing, | | | | | | Building , | | | | | | Floor [place], [place] | | | | | | [address] | | | | | | [phone] | | | +--------+ + + + [...] + + + +---------+ + + | [facility]sc-[facility]lowi | Take by mouth. | | 0 [...] papular | | | | | | vdfgt-xqu-ygf skin, | | | | | | [id number]. The surgical | | | | | [...] | | | | | | papular imauo-kvl-uvamg | | | | | | skin, 6p4l6bi. The | | | | | | [...] papular | | | | | | uhymh-tbvz-gog skin, | | | | | | 4n0t4qr. 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
--- OUTSIDE RECORDS SUMMARY | ~2019-09-14 | XMS | Encounter Summary ---
Demographics + + + | Address | [address] | | | [place] [address] | + + + | Home Phone | | + + + | Preferred Language | Unknown | + + + | Marital Status | | + + + | Judaism Affiliation | NON | + + + [...] [address] [place] | | | | | [address] | | + + + + + Care Team Providers + +------+ + | Care Maintenance Mechanic Helper Name | Role | Phone | + [...] | | [address] | [place], [place] | diseases of nasal | | | | [address] | [address] | cavity and sinuses; | | | | Mailcode: CH4S | [phone] | Acquired deformity | | | | [facility] | | of nose; Scar | | | | and Healing, | | condition and | | | | Building 1,4th Floor | | fibrosis of skin; | | | | [place], [place] | | Chronic | | | | [address] | | anticoagulation; | | | | [phone] | | Other specified | | | [...] OR NON-STEROIDAL ANTI-INFLAMMATORY DRUGS (NSAIDs) Advil, Aleve, Norma-[place], Anacin, Arthopan, Ascriptin, Aspergum, Aspirin with and [...] Piroxicam, Propoxyphene, Relafen, R obomol, Rufen, Sine-aid, Hutchison s cold tablets, Sulindac, Talwin, Tolectin, Triaminici n, Trigesic, Voltaren, Zorprin. OTHER PRODUCTS WHICH MAY PROMOTE BLEEDING Vitamin E, Gingko Biloba, Marine Fatty Acids, [place]-3 Fish Oil Supplements Important Guidelines Please do [...] perfume, lotions or powder. Remove any nail thai from at least one fingernail. Do not [...] ations. Check in locations [facility] Day [facility] [phone], [facility] and [facility], fourth floor Check-in times for Hospital Admissions are not available until the day prior to surgery. So meone from your surgeon's office or the hospital will contact you with your check in time. I f you do not hear from anyone by 3:00 PM please call your surgeons' office for ciorz-ph-nkvs . Going Home Your surgeon will decide [...] it is after office hours, call the [facility] service station console operator at [phone] and ask them to page your doc [...] additional test results under "Media" tab in AccessData. I spent 20 minutes in the care of this patient, > 50% of which was spent in counseling and coordination of care. All patient's questions clarified and answered satisfactorily. Vida Thurman, MSN, ACNP- Nurse Practitioner Pre-operative Medicine Clinic Replaced By [facility] [place], Mail code : [facility] [address] [place] [phone] (DIRECT LINE) (FAX) 2006 ACC/ AHA Perioperative Guidelines 1. Need for emergency noncardiac surgery? b. No -> Proceed to next step. 2. Active Cardiac Conditions? These conditions mandate further investigation and manageme nt. A. Acute MT within 7 days: no B. Unstable angina/Recent MT (7- 30 days): no C. Decompensated CHF: [...] consider noninvasive clay ting if it will exchange administrator. 3 or more risk factors AND high risk surgery- consider testing if it will exchange administrator . documented in this enco unter Plan [...] | + +--------+ + + + | CT COLLECTION VENOUS | Routin | 03/14/2010 | [...] | | | | | [place] ([id number]) | | | | | | on [...] view image for the detailed interpretation from [facility] results. | CARDIOLOGY | + + + + + + + + | Performing | Address | City/State/Zipcode | Phone Number | | Organization | | | | + + + + + | [facility] DEPT OF | [address] | [place], [place] | | | CARDIOLOGY | [address] | [address] | | + + + + + [...] | + + + + + | [facility] [place] [place] | [address] | [place] [address] | | | PATHOLOGY | [address] [...] | 27.7Comment: | 26.0 - 36.0 | [facility] | | | | APTT Therapeutic [...] | + + + + + | [facility] DEPARTMENT OF | [address] | [place] [address] | | | PATHOLOGY | [address] [...] DEPARTMENT OF | [address] | [place] [address] | | | PATHOLOGY | [address] [...]
--- OUTSIDE RECORDS SUMMARY | ~2019-09-14 | XMS | Encounter Summary ---
Demographics + + + | Address | [address] | | | [place] [address] | + + + | Home Phone | | + + + | Preferred Language | Unknown | + + + | Marital Status | | + + + | Congregation Affiliation | Unknown | + + + | Race | Unknown | + + + | Ethnic Group | Unknown | + + + Author + + + | Author | [facility] | | | and [place] | + + + | Organization | [facility] | | | [...] Team Providers + +------+ + | Care Slag Mixer Name | Role | Phone | + [...] | | [address] | [place] [address] | | | | | [address] | [phone] | | | | | [phone] | | | +--------+ + + + [...] 0.59 m/s | | | MV Dec Osborne: 2.18 m/s2 MV DecT: 262.21 ms MV E Bharat: 0.57 | | | m/s MV E/A Ratio: 0.96 MV PHT: 76.04 ms MVA By PHT: 2.89 | | | cm2 Septal e': 0.08 m/s Septal E/e': 6.68 Lateral e': 0.05 | | | m/s Lateral E/e': 9.85 RAP: 5 mmHg RVSP: 30.75 mmHg TR | | | maxP.75 mmHg TR Vmax: 2.53 m/s Wet Room Supervisor: JOSSELINE | | | Authenticated by: Abilio [place] Report Date/Time: 08-22-2017 | | | 11:39:48 [...] cmLVPWd: | | 0.77 cmLVOT Area: 3.95 ts5UGET Diam: 2.24 cm%FS: 18.89 %EF(Teich): 38.75 | [...] mlLAESV Index (A-L): 37.30 ml/m2LAAs A2C: 24.58 [id number] A-L A2C: 82.61 | | mlLALs A2C: 6.20 cmLAAs A4C: 20.85 zn4UHDOZ A-L A4C: 68.03 mlLALs A4C: 5.42 | | cmRAAs: 18.61 wr6XIFWP A-L: 62.06 mlRAESV MOD: 54.78 mlRALs: 4.73 cmTAPSE: | | 1.84 cmAV maxP.87 mmHgAV meanP.04 mmHgAV Vmax: 1.64 m/Zena Vmean: 1.16 | | m/Zena VTI: 35.24 cmAVA Vmax: 2.35 cm2AVA (VTI): 2.20 lx0JXDZ (Vmax): 0.00 | | cm2/m2AVAI (VTI): 0.00 cm2/m2LVOT maxP.83 mmHgLVOT meanP.87 mmHgLVSI Dopp: | | 36.07 ml/m2LVSV Dopp: 77.55 mlLVOT Vmax: 0.97 m/sLVOT Vmean: 0.63 m/sLVOT VTI: | | 19.59 cmMV A Bharat: 0.59 m/sMV Dec Osborne: 2.18 m/s2MV DecT: 262.21 msMV E Bharat: | | 0.57 m/sMV E/A Ratio: 0.96MV PHT: 76.04 msMVA By PHT: 2.89 jv9Jcpbcu e': 0.08 | | m/sSeptal E/e': 6.68Lateral e': 0.05 m/sLateral E/e': 9.85RAP: 5 mmHgRVSP: | | 30.75 mmHgTR maxP.75 mmHgTR Vmax: 2.53 m/s Wet Room Supervisor: DBSAuthenticated by: | | [facility] Date/Time: 08-22-2017 11:39:48 IMPRESSION: 1. [...] A Bharat: 0.59 m/s | |MV Dec Osborne: 2.18 m/s2 | |MV DecT: 262.21 ms [...] |TR Vmax: 2.53 m/s | | | |Wet Room Supervisor: DBS | |Authenticated by: Abilio Mckinney | [...]
--- OUTSIDE RECORDS SUMMARY | ~2019-09-14 | XMS | Encounter Summary ---
Demographics + + + | Address | [address] | | | [place] [address] | + + + | Home Phone [...] [address] | | | | | [address] | | + + + + + Care Team Providers + +------+ + | Care Hazardous Waste Management Specialist Name | Role | Phone | + +------+ + | Kike Velazquez MD | PCP | | + +------+ + Encounter Details +--------+ + + + + | Date | Type | Department | Care Team | Description | +--------+ + + + + | 09/10/ | Hospital | Dermatopathology | | | | 2012 | Encounter | [address] | | | | | | Mailcode: CH16D | | | | | | [facility] | | | | | | and Healing, | | | | | | Building | | | | | | Floor [place], [place] | | | | | | [address] | | | | | | [phone] | | | +--------+ + + + [...] + + + +---------+ + + | MU-Vpv-Rrbdp | Take by mouth. | | 0 [...] Received: | | | | | | [id number] x 1 | | | | | [...] Returned: | | | | | | [id number] x 1 | | | | | [...] EMELYN | [address] | [place] [address] | | | DERMATOPATHOLOGY | [address] | | | + + + + + documented in this encounter Visit Diagnoses Not on filedocumented in this encounter"
--- OUTSIDE RECORDS SUMMARY | ~2019-09-14 | XMS | Encounter Summary ---
Demographics + + + | Address | [address] | | | [place] [address] | + + + | Home Phone | | + + + | Preferred Language | Unknown | + + + | Marital Status | | + + + | Mosque Affiliation | NON | + + + [...] [address] [place] | | | | | [address] | | + + + + + Care Team Providers + +------+ + | Care Inspector Packager Name | Role | Phone | + [...] | | | | Reconstructive | [facility], | of nose; Postop | | | | Services at [facility] | [place] [address] | check | | | | [address] | [phone] | | | | | Mailcode: CH5E | | | | | | [facility] | | | | | | and Healing, | | | | | | Building 1, 5th | | | | | | Floor [place], [place] | | | | | | [address] | | | | | | [phone] | | | +--------+---------+ + + + [...] and Reconstructive Surgery Clinic Kym Fiore PA-C, lorie functioning as a scribe for Moise Baldwin MD FACS. Zoltan Reece is a 80 y.o. male who returns for followup one day out from [facility] via external approach with left ear [...] Surgery Dept. of Otolaryngology/Head and Neck Surgery [facility] tel fax email [email or web address] documented in this encounte r Plan [...]
--- OUTSIDE RECORDS SUMMARY | ~2019-09-14 | XMS | Encounter Summary ---
Demographics + + + | Address | [address] | | | [place] [address] | + + + | Home Phone | | + + + | Preferred Language | Unknown | + + + | Marital Status | | + + + | Rastafarian Affiliation | NON | + + + [...] [address] [place] | | | | | [address] | | + + + + + Care Team Providers + +------+ + | Care Manager Of Customer Billing Name | Role | Phone | + [...] | | | Reconstructive | [address], | of nose | | | | Services at [facility] | [place] [address] | | | | | [address] | [phone] | | | | | Mailcode: 5E | | | | | | [facility] | | | | | | and Healing, | | | | | | Building 1, 5th | | | | | | Floor [place], [place] | | | | | | [address] | | | | | | [phone] | | | +--------+---------+ + + + [...] PM PSTClinic: Facial Plastic and Reconstructive Surge [facility] Kym Fiore PA-C, am functioning as a [...] with his progress at this t [facility]. I have reviewed and verified the above scribed note of my visit with this patient as record ed by Kym Brock PA-C. Moise Baldwin MD FACS Professor Facial Plastic and Reconstructive Surgery Dept. of Otolaryngology/Head and Neck Surgery [facility] tel fax email [email or web address] documented in this encounte r Plan of Treatment Not on filedocumented as of this encounter Visit Diagnoses + + | Diagnosis | + + | Nasal obstruction Other diseases of nasal cavity and sinuses | + + | Acquired deformity of nose | + + documented in this encounter
--- OUTSIDE RECORDS SUMMARY | ~2019-09-14 | XMS | Encounter Summary ---
Demographics + + + | Address | [address] | | | [place] [address] | + + + | Home Phone | | + + + | Preferred Language | Unknown | + + + | Marital Status | | + + + | Baptist Affiliation | NON | + + + | Race | White | + + + | Ethnic Group | Not or | + + + Author + + + | Author | [facility] | + + + | Organization | [facility] | + + + | Address | Unknown | + + + | Phone | Unavailable | + + + Support + + + + + | Name | Relationship | Address | Phone | + + + + + | Mariajose Reece | ECON | [address] | | | | [address] [place] | | | | | [address] | | + + + + + Care Team Providers + +------+ + | Care Caser Name | Role | Phone | + [...] | | | | Reconstructive | Park [facility], | of nose; Postop | | | | Services at [facility] | [place] [address] | check | | | | [address] | [phone] | | | | | Mailcode: CH5E | | | | | | [facility] | | | | | | and Healing, | | | | | | Building 1, 5th | | | | | | Floor [place], [place] | | | | | | [address] | | | | | | [phone] | | | +--------+---------+ + + + [...] of Otolaryngology/Head and Neck Surgery [facility] tel fax email [email or web address] documented in this encounte r Plan of [...]
--- OUTSIDE RECORDS SUMMARY | ~2019-09-14 | XMS | Encounter Summary ---
Demographics + + + | Address | [address] | | | [place] [address] | + + + | Home Phone | | + + + | Preferred Language | Unknown | + + + | Marital Status | | + + + | Adventism Affiliation | NON | + + + | Race | White | + + + | Ethnic Group | Not or | + + + Author + + + | Author | [facility] | + + + | Organization | [facility] | + + + | Address | Unknown | + + + | Phone | Unavailable | + + + Support + + + + + | Name | Relationship | Address | Phone | + + + + + | Mariajose Reece | ECON | [address] | | | | [address] [place] | | | | | [address] | | + + + + + Care Team Providers + +------+ + | Care Graining Press Operator Name | Role | Phone | [...]
--- OUTSIDE RECORDS SUMMARY | ~2019-09-14 | XMS | Encounter Summary ---
Demographics + + + | Address | [address] | | | [place] [address] | + + + | Home Phone [...] [address] [place] | | | | | [address] | | + + + + + Care Team Providers + +------+ + | Care Neurology Technician Name | Role | Phone | [...] | | | at Gene [facility] | [facility] | | | | | [address] | [place] [address] | | | | | [address] | | | | | | Huang, [facility] floor | | | | | | [place], [place] | | | | | | [address] | | | | | | [phone] | | | +--------+ + + + [...] + + + +---------+ + + | NE-Vik-Aslaa | Take by mouth. | | 0 [...] | | | | | VAN ROSENTHAL ([id number]) | | | | | | on 03/18/2010 12:34:28 | | | | | | PM | | | | + + + + + + + + | Specimen | + + | | + + + + + | Narrative | Performed At | + + + | Please click | [facility] DEPT OF | | on view image for the detailed interpretation from [employer] results. | CARDIOLOGY | + + + + + + + + | Performing | Address | City/State/Zipcode | Phone Number | | Organization | | | | + + + + + | [facility] | [address] | [place], [place] | | | CARDIOLOGY | [address] | [address] | | + + + + + documented in this encounter Visit Diagnoses Not on filedocumented in this encounter
--- OUTSIDE RECORDS SUMMARY | ~2019-09-14 | XMS | Encounter Summary ---
Demographics + + + | Address | [address] | | | [place] [address] | + + + | Home Phone | | + + + | Preferred Language | Unknown | + + + | Marital Status | | + + + | Episcopal Affiliation | NON | + + + | Race | White | + + + | Ethnic Group | Not or | + + + Author + + + | Author | [facility] | + + + | Organization | [facility] | + + + | Address | Unknown | + + + | Phone | Unavailable | + + + Support + + + + + | Name | Relationship | Address | Phone | + + + + + | Mariajose Reece | ECON | [address] | | | | [address] [place] | | | | | [address] | | + + + + + Care Team Providers + +------+ + | Care Programmer Developer Name | Role | Phone | + +------+ + | Kike Velazquez MD | PCP | | + +------+ + Encounter Details +--------+ + + + + | Date | Type | Department | Care Team | Description | +--------+ + + + + | 06/20/ | Hospital | Dermatopathology | | | | 2017 | Encounter | [address] | | | | | | Mailcode: CH16D | | | | | | [facility] | | | | | | and Healing, | | | | | | Building , | | | | | | Floor [place], [place] | | | | | | [address] | | | | | | [phone] | | | +--------+ + + + [...] + + + +---------+ + + | QX-Kcy-Firkp | Take by mouth. | | 0 [...] excisionof | | | | | | rtjoa-grf-qxsig skin, | | | | | | [id number]. 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
--- OUTSIDE RECORDS SUMMARY | ~2019-09-14 | XMS | Encounter Summary ---
Demographics + + + | Address | [address] | | | [place] [address] | + + + | Home Phone | | + + + | Preferred Language | Unknown | + + + | Marital Status | | + + + | Anglican Affiliation | NON | + + + [...] [address] [place] | | | | | [address] | | + + + + + Care Team Providers + +------+ + | Care Java Groovy Developer Name | Role | Phone | [...] | | | | | | Mailcode: [facility] | | | | | | | Center | | | | | | | for Health | | | | | | | and Healing, | | | | | | | [address] | | | | | | | [place], [place] | | | | | | | [address] | | | | | | | Phone: | | | | | | | [phone] | | | | | | | Fax: | | | | | | | [phone] | +--------+--------+ + + + + Encounter [...] | | | | | Ave Mailcode: [facility] | [address] [place], | | | | | [facility] | [place] [address] | | | | | Health and Healing, | [phone] | | | | | [address] | | | | | | [place], [place] | | | | | | [address] | | | | | | [phone] | | | +--------+ + + + [...] + + + +---------+ + + | XH-Qcu-Ogmty | Take by mouth. | | 0 [...] Performed At | + + + | [id number] | | | [id number] | | | [id number] VANGIE Baez 721010 | | | Date: 03/15/2010 Attending Surgeon: | | | Moise Baldwin M.D. Experimental Machinist(s): | | | ADDENDUM The dimensions of full-thickness skin graft harvested | | | were 3 cm x 1.5 cm, and the dimensions of the final graft were 1.8 | | | cm in length x 1 cm in width. Moise Baldwin M.D. | | | Facial Plastic and Reconstructive Surgery TD / [id number] / | | | [id number] / [id number] / | | + + + + + | Procedure Note | + + | Moise Baldwin MD - 04/06/2010 7:49 AM PST [id number] | | [id number] VANGIE SIDDIQUI | | G [id number] Date: 03/15/2010 Attending Surgeon: | | Moise Baldwin M.D. Experimental Machinist(s): ADDENDUM The dimensions of full-thickness skin | | graft harvested were 3 cm x 1.5 cm,and the dimensions of the final graft were 1.8 cm in | | length x 1 cm inwidth. Moise Baldwin M.D.Facial Plastic and Reconstructive Surgery | | TDW / [id number] / [id number] / [id number] / T: 04/05/2010 | |Attending Surgeon: Moise Baldwin M.D. | | | | | |Experimental Machinist(s): | | | | | |ADDENDUM | [...] | | | |TDW / HS | |[id number] / [id number] / 83232 / | | | | | | | | | | | | | | | | | | | | | + + OPERATION RECORD (03/15/2010 12:00 AM PST) + + + | Narrative | Performed At | + + + | [id number] | | | [id number] | | | [id number] VANGIE Baez 241184 | | | Date: 03/15/2010 Attending Surgeon: | | | Moise Baldwin M.D. Experimental Machinist(s): | | | Sachin Taylor MD | [...] crest. A segment of the posterior inferior iuj-vqhl-ybfdaik | | | quadrangular cartilage was resected [...] Plastic and | | | Reconstructive Surgery [facility] / [id number] / [id number] / [id number] / D: | | | 03/15/2010 | | + + + + + | Procedure Note | + + | Moise Baldwin MD - 03/16/2010 9:56 AM PST [id number] | | [id number] NIKKICHAI ARTUR | | G 000115 Date: 03/15/2010 Attending Surgeon: | | Moise Baldwin M.D. Experimental Machinist(s): Sachin Taylor MD | | Shay Giron [...] maxillary crest. A segment of the posterior tcmgwmjiakd-anuv-omxsnfy | | quadrangular cartilage was resected for [...] M.D.Facial Plastic and Reconstructive Surgery [facility] / [id number] / [id number] | | / 44660 / T: 03/16/2010 | | | | | |The deviated septum was approached from above with elevation of the left | |mucoperichondrial flap. The posterior bony cartilaginous junction was | |disarticulated, and posteriorly, the deviated bony septum was resected | |along with the inferiorly deviated strip of cartilaginous septum and | |deviated bony maxillary crest. A segment of the posterior inferior | |yzb-rocn-hdhnyom quadrangular cartilage was resected for grafting purposes [...] | | | |TDW / HS | |[id number] / [id number] / 94623 / | | | | | | [...]
--- OUTSIDE RECORDS SUMMARY | ~2019-09-14 | XMS | Clinical Summary ---
Demographics + + + | Address | [address] | | | [place] [address] | + + + | Home Phone [...] [address] [place] | | | | | [address] | | + + + + + Care Team Providers + +------+ + | Care Tonsorial Artist Name | Role | Phone | + +------+ + | Kike Velazquez MD | PCP | | + +------+ + Source Comments EMELYN is fully live on both [facility] and [facility] Allergies Not on File Medications + [...] | | + + + +---------+------+------+-------+ | AX-Hkb-Gkljt | Take by mouth. | | 0 [...] nose | 03/14/2010 | + + + Encounters +--------+ + + + + | Date | Type | Specialty | Care Team | Description | +--------+ + + + + | 08/03/ | Documentati | Non [facility] | Unknown | | | 2020 | on | Department | | | +--------+ + + + + from Last 3 Months Social History + +-------+ +--------+------+ | Tobacco [...] Pneumococcal | | | | | vaccination (1 of 2 | 7 | | | [...] re | | | B | | esent | | [place], [place] | | | | | | | | [address] | | + +--------+ +--------+ + +--------+ | HU[employer] | HUMANA | [phone] | 04/07/19 | [phone] | [address] | PPO | | | | | 17-Pre | 2 | [address] | | | | CHOICE | | sent | | [place], | | | | CARE | | | | [place] | | | | | | | | [address] | | + +--------+ +--------+ + +--------+ [...] | 1930 | [phone] | [place] [address] | | | [place]uis | | | 1 (Home) | | + +--------+ +--------+ + + Advance Directives + + + + + | Type | Date Recorded | Patient | Explanation | | | | Occupational Health Physiotherapist | | + + + + + | Advance | | | | | Directives and | | | | | Living Will | | | | + + + + + | Power of | | | | | Costume Shop Coordinator | | | | + + + + +
--- OUTSIDE RECORDS SUMMARY | ~2019-09-14 | XMS | Encounter Summary ---
Demographics + + + | Address | [address] | | | [place] [address] | + + + | Home Phone | | + + + | Preferred Language | Unknown | + + + | Marital Status | | + + + | Congregational Affiliation | Unknown | + + + | Race | Unknown | + + + | Ethnic Group | Unknown | + + + Author + + + | Author | [facility] | | | and [place] | + + + | Organization | [facility] | | | [...] Team Providers + +------+ + | Care Special Machine Stitcher Name | Role | Phone | + [...] | | | | JANE FELDMAN | [phone] | | | | | [address] | | | | | | [phone] | | | +--------+ + + + [...]
--- OUTSIDE RECORDS SUMMARY | ~2019-09-14 | XMS | Clinical Summary ---
Demographics + + + | Address | [address] | | | [place] [address] | + + + | Home Phone | | + + + | Preferred Language | Unknown | + + + | Marital Status | | + + + | Jehovah'S Witness Affiliation | NON | + + + [...] [address] [place] | | | | | [address] | | + + + + + Care Team Providers + +------+ + | Care Cemetery Worker Name | Role | Phone | + +------+ + | Kike Velazquez MD | PCP | | + +------+ + Source Comments EMELYN is fully live on both [facility] Amb[facility] and [facility] InPatient.[facility] Allergies Not on File Medications [...] | | + + + +---------+------+------+-------+ | ZS-Zxt-Txenn | Take by mouth. | | 0 [...] | | | | | | | [address] | | + +--------+ +--------+ + +--------+ | HUMANA | HUMANA | [phone] | 04/07/19 | [phone] | [address] | PPO | | | | | 17-Pre | 2 | [address] | | | | CHOICE | | sent | | [place], | | | | CARE | | | | [place] | | | | | | | | [address] | | + +--------+ +--------+ + +--------+ [...] | 1930 | [phone] | [place] [address] | | | luis | | | 1 (Home) | | + +--------+ +--------+ + + Advance Directives + + + + + | Type | Date Recorded | Patient | Explanation | | | | Bailer Operators Supervisor | | + + + + + | Advance | | | | | Directives and | | | | | Living Will | | | | + + + + + | Power of | | | | | Sales Recruitment Specialist | | | | + + + + +
== END 2019-09-14 19:07 | disposition home or self-care (01) ==
LOC: ED 16:56
DX: S86.111A Strain of other muscle(s) and tendon(s) of posterior muscle group at lower leg level, right leg, initial encounter (principal); Z87.891 Personal history of nicotine dependence; Z79.899 Other long term (current) drug therapy; X58.XXXA Exposure to other specified factors, initial encounter
CPT/HCPCS: 93971; 99283-25

== ENCOUNTER 2019-11-23 11:06 | Emergency (ER) | payer MEDICARE, OTHER ==
[~2019-11-23] VITALS: Ht 190.5 cm; Wt 86.2 kg
--- OUTSIDE RECORDS SUMMARY | ~2019-11-23 | XMS | Encounter Summary ---
Demographics + + + | Address | [address] | | | [place] [address] | + + + | Home Phone | | + + + | Preferred Language | Unknown | + + + | Marital Status | | + + + | Church Affiliation | NON | + + + | Race | White | + + + | Ethnic Group | Not or | + + + Author + + + | Author | [facility] | + + + | Organization | [facility] | + + + | Address | Unknown | + + + | Phone | Unavailable | + + + Support + + + + + | Name | Relationship | Address | Phone | + + + + + | Mariajose Reece | ECON | [address] | | | | [address] | | | | | [address] | | + + + + + Care Team Providers + +------+ + | Care Web Retailer Name | Role | Phone | + +------+ + | Kike Velazquez MD | PCP | | + +------+ + Encounter Details +--------+ + + + + | Date | Type | Department | Care Team | Description | +--------+ + + + + | 03/08/ | Hospital | Dermatopathology | | | | 2016 | Encounter | [address] | | | | | | Mailcode: [id number] | | | | | | [facility] | | | | | | and Healing, | | | | | | Building , | | | | | | Floor [place], [place] | | | | | | [address] | | | | | | [phone] | | | +--------+ + + + + Social History + +-------+ +--------+------+ | Tobacco Use | Types | Packs/Day | Years | Date | | | | | Used | | + +-------+ +--------+------+ | Never Smoker | | | | | + +-------+ +--------+------+ + +---+---+---+ | Smokeless Tobacco: | | | | | Never Used | | | | + +---+---+---+ + + +---------+ + | Alcohol Use | Drinks/Week | oz/Week | Comments | + + +---------+ + | Yes | 1 Glasses of wine | 0.8 | | + + +---------+ + + + + | Sex Assigned at | Date Recorded | | | | + + + | Not on file | | + + + + + + + | Job Start Date | Occupation | Industry | + + + + | Not on file | Not on file | Not on file | + + + + + + + + | Travel History | Travel Start | Travel End | + + + + + + | No recent travel history available. | + + documented as of this encounter Medications at Time of Discharge + + + +---------+ + + | Medication | Sig | Dispensed | Refills | Start | End Date | | | | | | Date | | + + + +---------+ + + | ascorbic acid | Take 500 mg by mouth | | 0 | 03/14/20 | | | (VITAMIN C) 500 mg | once daily. | | | 10 | | | Oral Tablet | | | | | | + + + +---------+ + + | aspirin 325 mg | Take 325 mg by mouth | | 0 | | | | Oral Tablet | once daily. | | | | | + + + +---------+ + + | cephALEXin | Take 1 Cap by mouth | 30 Cap | 0 | 03/08/20 | | | (KEFLEX) 500 mg Oral | every six hours. | | | 10 | | | Capsule | | | | | | + + + +---------+ + + | clopidogrel | Take 75 mg by mouth | | 0 | | | | (PLAVIX) 75 mg Oral | once daily. | | | | | | Tablet | | | | | | + + + +---------+ + + | VE-Ptg-Aezbo | Take by mouth. | | 0 | | | | Acid-Lutein (CENTRUM | | | | | | | SILVER) 500-250 mcg | | | | | | | Oral Tablet, | | | | | | | Chewable | | | | | | + + + +---------+ + + | niacin SR | Take 500 mg by mouth | | 0 | | | | (NIASPAN) 500 mg | once daily at | | | | | | Oral Tablet | bedtime. | | | | | | Sustained Release | | | | | | + + + +---------+ + + | rosuvastatin | Take 40 mg by mouth | | 0 | | | | (CRESTOR) 40 mg Oral | once daily. | | | | | | Tablet | | | | | | + + + +---------+ + + | tetracycline 250 | Take 250 mg by mouth | | 0 | 03/14/20 | | | mg Oral Capsule | once daily. | | | 10 | | | | Administer on an | | | | | | | empty stomach. | | | | | + + + +---------+ + + documented as of this encounter Plan of Treatment Not on filedocumented as of this encounter Procedures + +--------+ + + + | Procedure Name | Priori | Date/Time | Associated Diagnosis | Comments | | | ty | | | | + +--------+ + + + | DERM PATHOLOGY | Routin | 03/08/2016 | Inflamed | Results for this | | | e | | seborrheic keratosis | procedure are in the | | | | | Squamous cell | results section. | | | | | carcinoma of skin of | | | | | | other part of trunk | | + +--------+ + + + documented in this encounter Results DERM PATHOLOGY (03/08/2016) + + + + + + | Component | Value | Ref Range | Performed | Pathologist | | | | | At | Signature | + + + + + + | DERMATOPATH | SOURCE OF SPECIMEN:A Mid | | [facility] | | | OLOGY(WET | chest, shave | | DERMATOPATH | | | MNT) | biopsySOURCE OF | | OLOGY | | | | SPECIMEN:B Lt. abdomen, | | | | | | shave biopsySOURCE OF | | | | | | SPECIMEN:C Rt. wrist, | | | | | | shave biopsy | | | | | | CLINICAL DESCRIPTION:A: | | | | | | 4 x 4 mm eroded pink | | | | | | papule; r/o NMSC.B: 4 x | | | | | | 4 mm pink papule; r/o | | | | | | NMSC.C: 4 x 5 mm pink | | | | | | papule; r/o NMSC. | | | | | | GROSS | | | | | | DESCRIPTION:Received in | | | | | | formalin are three | | | | | | specimens labeled | | | | | | Zoltan Reece:A: | | | | | | Specimen is labeled "A | | | | | | | | | | | | | | | | | | Mid chest" and consists | | | | | | of an irregular shaveof | | | | | | scaly papular | | | | | | jygeo-ovn-yfw skin, | | | | | | [id number]. The surgical | | | | | | margin is inkedblack; | | | | | | the tissue is bisected, | | | | | | and entirely submitted | | | | | | in cassette A1.B: | | | | | | Specimen is labeled "B | | | | | | | | | | | | | | | | | | L abdomen" and consists | | | | | | of an irregular shaveof | | | | | | papular khpnk-yei-pvvir | | | | | | skin, [id number]. The | | | | | | surgical margin is | | | | | | inkedblack; the tissue | | | | | | is bisected, and | | | | | | entirely submitted in | | | | | | cassette B1.C: Specimen | | | | | | is labeled "C | | | | | | | | | | | | R wrist" and consists | | | | | | of an irregular shave | | | | | | ofscaly papular | | | | | | cjbpa-lrvg-nom skin, | | | | | | [id number]. The surgical | | | | | | margin is inkedblack; | | | | | | the tissue is bisected, | | | | | | and entirely submitted | | | | | | in cassette C1. | | | | | | MICROSCOPIC | | | | | | DESCRIPTION:A: The | | | | | | surface of the epidermis | | | | | | is eroded to ulcerated | | | | | | and covered by crustwith | | | | | | polymorphous cells. | | | | | | There is focal | | | | | | parakeratosis, | | | | | | hypergranulosis,epiderma | | | | | | l hyperplasia, | | | | | | thickening of the | | | | | | papillary dermis and a | | | | | | band-likelymphocytic | | | | | | infiltrate in the upper | | | | | | dermis with associated | | | | | | basal vacuolarchange, | | | | | | dyskeratosis, pseudonest | | | | | | formation, and | | | | | | squamotization of | | | | | | thebasalis. PAS is | | | | | | negative for fungal | | | | | | hyphae. Additional | | | | | | deeper sections havebeen | | | | | | examined. B: | | | | | | There is epidermal | | | | | | hyperplasia with | | | | | | atypical epithelial | | | | | | cells extendinginto the | | | | | | upper dermis to the base | | | | | | of the tissue segment. | | | | | | The epithelialcell | | | | | | nuclei are pleomorphic | | | | | | and hyperchromatic and | | | | | | most of the cells | | | | | | haveeosinophilic | | | | | | cytoplasm. C: | | | | | | There is focal | | | | | | parakeratosis, | | | | | | hypergranulosis, | | | | | | epidermal | | | | | | hyperplasia,thickening | | | | | | of the papillary dermis | | | | | | and a band-like | | | | | | lymphocytic infiltratein | | | | | | the upper dermis. | | | | | | DIAGNOSIS:A: LICHEN | | | | | | PLANUS-LIKE KERATOSIS. 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 NOTE: | | | | | | While the possibility of | | | | | | an inflamed seborrheic | | | | | | keratosis withreactive | | | | | | change has been | | | | | | considered, asymmetry | | | | | | and keratinocytic | | | | | | nuclearpleomorphism are | | | | | | consistent with squamous | | | | | | cell carcinoma, present | | | | | | at thedeep biopsy | | | | | | margin. C: LICHEN | | | | | | PLANUS-LIKE KERATOSIS. | | | | | | My electronic | | | | | | signature indicates that | | | | | | I have personally | | | | | | reviewed alldiagnostic | | | | | | slides, the gross and/or | | | | | | microscopic portion of | | | | | | thisreport and | | | | | | formulated the final | | | | | | diagnosis. | | | | | | Rendering Diagnostician: | | | | | | Devora Bose | | | | | | Diaz | | | | | | MDPathologistElectronica | | | | | | lly Signed 03/19/2016 | | | | | | 2:12PM | | | | + + + + + + + + | Specimen | + + | | + + + + + | Narrative | Performed At | + + + | | | + + + + + + + + | Performing | Address | City/State/Zipcode | Phone Number | | Organization | | | | + + + + + | [facility] | Mailcode [address] | [place] [address] | | | DERMATOPATHOLOGY | [address] | | | + + + + + | [facility] | Mailcode [address] | [place] [address] | | | DERMATOPATHOLOGY | [address] | | | + + + + + documented in this encounter Visit Diagnoses + + | Diagnosis | + + | Inflamed seborrheic keratosis | + + | 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
--- OUTSIDE RECORDS SUMMARY | ~2019-11-23 | XMS | Encounter Summary ---
Demographics + + + | Address | [address] | | | [place] [address] | + + + | Home Phone | | + + + | Preferred Language | Unknown | + + + | Marital Status | | + + + | Tenriism Affiliation | NON | + + + | Race | White | + + + | Ethnic Group | Not or | + + + Author + + + | Author | [facility] | + + + | Organization | [facility] | + + + | Address | Unknown | + + + | Phone | Unavailable | + + + Support + + + + + | Name | Relationship | Address | Phone | + + + + + | Mariajose Reece | ECON | [address] | | | | [address] | | | | | [address] | | + + + + + Care Team Providers + +------+ + | Care Slipper Maker Name | Role | Phone | + +------+ + | Kike Velazquez MD | PCP | | + +------+ + Encounter Details +--------+ + + + + | Date | Type | Department | Care Team | Description | +--------+ + + + + | 09/10/ | Hospital | Dermatopathology | | | | 2012 | Encounter | [address] | | | | | | Mailcode: CH16D | | | | | | [facility] | | | | | | and Healing, | | | | | | Building | | | | | | Floor [place], [place] | | | | | | [address] | | | | | | [phone] | | | +--------+ + + + [...] + + + +---------+ + + | CD-Nui-Duocm | Take by mouth. | | 0 [...] | + +--------+ + + + | DERMATOPATHOLOGY(CON | Routin | 09/10/2012 | | Results for this | | SULT) | e | | | procedure are in the | | | | | | results section. | + +--------+ + + + documented in this encounter Results DERMATOPATHOLOGY(CONSULT) (09/10/2012) + + + + + + | Component | Value | Ref Range | Performed | Pathologist | | | | | At | Signature | + + + + + + | DERMATOPATH | SOURCE OF SPECIMEN:A | | [facility] | | | (CONSULT) | left knee biopsy | | DERMATOPATH | | | | CLINICAL DESCRIPTION:1.2 | | OLOGY | | | | x 1 cm erythematous | | | | | | hyperkeratotic papule. | | | | | | Clinically suspicious | | | | | | forAK, SCC, irritated | | | | | | SK.Materials Received: | | | | | | [id number] x 1 | | | | | | slide. Dear Simeon: | | | | | | In Zoltan | | | | | | Talboy's right lateral | | | | | | knee biopsy, as you | | | | | | indicated, thereis mild | | | | | | basketweave and compact | | | | | | hyperkeratosis overlying | | | | | | epidermalhyperplasia | | | | | | with melanin along the | | | | | | basal layer. | | | | | | Centrally, some of | | | | | | thekeratinocytes contain | | | | | | uniformly enlarged | | | | | | nuclei and increased | | | | | | amounts ofeosinophilic | | | | | | cytoplasm. Beneath, | | | | | | there is a dense, | | | | | | perivascular,predominant | | | | | | ly lymphocytic | | | | | | infiltrate with | | | | | | occasional eosinophils | | | | | | andextravasated red | | | | | | cells. There is also | | | | | | solar elastosis. | | | | | | DIAGNOSIS:SEBORRHEIC | | | | | | KERATOSIS, INFLAMED WITH | | | | | | HEMORRHAGE. There | | | | | | is no evidence of a | | | | | | malignant neoplasm in | | | | | | these sections. | | | | | | Thank you for referring | | | | | | this | | | | | | consultation.Materials | | | | | | Returned: | | | | | | [id number] x 1 | | | | | | slide. | | | | | | KPW:mm09/18/12 My | | | | | | electronic signature | | | | | | indicates that I have | | | | | | personally reviewed | | | | | | alldiagnostic slides, | | | | | | the gross and/or | | | | | | microscopic portion of | | | | | | thisreport and | | | | | | formulated the final | | | | | | diagnosis. | | | | | | Rendering Diagnostician: | | | | | | Jairon Zarco | | | | | | MApolinarPathologistElectroni | | | | | | marie Signed 09/18/2012 | | | | | | 3:51PM | | | | + + + + + + + + | Specimen | + + | | + + + + + + + | Performing | Address | City/State/Zipcode | Phone Number | | Organization | | | | + + + + + | [facility] | Mailcode [address] | [place] [address] | | | DERMATOPATHOLOGY | [address] | | | + + + + + | [facility] | Mailcode [address] | [place] [address] | | | DERMATOPATHOLOGY | [address] | | | + + + + + documented in this encounter Visit Diagnoses Not on filedocumented in this encounter"
--- OUTSIDE RECORDS SUMMARY | ~2019-11-23 | XMS | Clinical Summary ---
Demographics + + + | Address | [address] | | | [place] [address] | + + + | Home Phone | | + + + | Preferred Language | Unknown | + + + | Marital Status | | + + + | Hindu Affiliation | NON | + + + | Race | White | + + + | Ethnic Group | Not or | + + + Author + + + | Author | [facility] | + + + | Organization | [facility] | + + + | Address | Unknown | + + + | Phone | Unavailable | + + + Support + + + + + | Name | Relationship | Address | Phone | + + + + + | Mariajose Reece | KODY | [address] | | | | [address] | | | | | [address] | | + + + + + Care Team Providers + +------+ + | Care Swamper Name | Role | Phone | + +------+ + | Kike Velazquez MD | PCP | | + +------+ + Source Comments EMELYN is fully live on both [facility] and [facility] Allergies Not on File Medications + + + +---------+------+------+-------+ | Medication | Sig | Dispensed | Refills | Star | End | Statu | | | | | | t | Date | s | | | | | | Date | | | + + + +---------+------+------+-------+ | clopidogrel | Take 75 mg by mouth | | 0 | | | Activ | | (PLAVIX) 75 mg Oral | once daily. | | | | | e | | Tablet | | | | | | | + + + +---------+------+------+-------+ | rosuvastatin | Take 40 mg by mouth | | 0 | | | Activ | | (CRESTOR) 40 mg Oral | once daily. | | | | | e | | Tablet | | | | | | | + + + +---------+------+------+-------+ | aspirin 325 mg | Take 325 mg by mouth | | 0 | | | Activ | | Oral Tablet | once daily. | | | | | e | + + + +---------+------+------+-------+ | niacin SR | Take 500 mg by mouth | | 0 | | | Activ | | (NIASPAN) 500 mg | once daily at | | | | | e | | Oral Tablet | bedtime. | | | | | | | Sustained Release | | | | | | | + + + +---------+------+------+-------+ | tetracycline 250 | Take 250 mg by mouth | | 0 | 12/0 | | Activ | | mg Oral Capsule | once daily. | | | 8/20 | | e | | | Administer on an | | | 10 | | | | | empty stomach. | | | | | | + + + +---------+------+------+-------+ | YD-Uol-Bpztm | Take by mouth. | | 0 | | | Activ | | Acid-Lutein (CENTRUM | | | | | | e | | SILVER) 500-250 mcg | | | | | | | | Oral Tablet, | | | | | | | | Chewable | | | | | | | + + + +---------+------+------+-------+ | cephALEXin | Take 1 Cap by mouth | 30 Cap | 0 | 12/0 | | Activ | | (KEFLEX) 500 mg Oral | every six hours. | | | 2/20 | | e | | Capsule | | | | 10 | | | + + + +---------+------+------+-------+ | ascorbic acid | Take 500 mg by mouth | | 0 | 12/0 | | Activ | | (VITAMIN C) 500 mg | once daily. | | | 8/20 | | e | | Oral Tablet | | | | 10 | | | + + + +---------+------+------+-------+ Active Problems + + + | Problem | Noted Date | + + + | Nasal obstruction | 03/14/2010 | + + + | Acquired deformity of nose | 03/14/2010 | + + + Social History + +-------+ [...] recent travel history available. | + + Last Filed Vital Signs + + + + + | Vital Sign | Reading | Time Taken | Comments | + + + + + | Blood Pressure | 102/54 | 03/15/2010 6:10 PM | | | | | PST | | + + + + + | Pulse | 54 | 03/15/2010 6:10 PM | | | | | PST | | + + + + + | Temperature | 36.5 C (97.7 F) | 03/15/2010 5:15 PM | | | | | PST | | + + + + + | Respiratory Rate | 14 | 03/15/2010 6:10 PM | | | | | PST | | + + + + + | Oxygen Saturation | 98% | 03/15/2010 6:10 PM | | | | | PST | | + + + + + | Inhaled Oxygen | - | - | | | Concentration | | | | + + + + + | Weight | 86.2 kg (190 lb) | 03/21/2010 1:55 PM | | | | | PST | | + + + + + | Height | 190.5 cm (6' 3") | 03/21/2010 1:55 PM | | | | | PST | | + + + + + | Body Mass Index | 23.75 | 03/21/2010 1:55 PM | | | | | PST | | + + + + + Plan of Treatment + + + + + | Health Maintenance | Due Date | Last Done | Comments | + + + + + | Pneumococcal | | | | | vaccination ( of 2 | 7 | | | | - PCV13) | | | | + + + + + | Influenza (Flu) | | | | | vaccination (#1) | 9 | | | + + + + + Results Not on filefrom Last 3 Months Insurance + +--------+ +--------+ + +--------+ | Payer | Benefi | Subscriber | Effect | Phone | Address | Type | | | t Plan | ID | blank | | | | | | / | | Dates | | | | | | Group | | | | | | + +--------+ +--------+ + +--------+ | MEDICARE | MEDICA | xxxxxxxxxx | | [phone] | [address] | | | RE A & | | [phone] | | | [address] | | [address] | | [place] | | | | | | | | [phone] | | + +--------+ +--------+ + +--------+ | HUMANA | HUMANA | xxxxxxxxx | 04/07/19 | [phone] | [address] | PPO | | | | | 17-Pre | 2 | [address] | | | | CHOICE | | sent | | [place], | | | | CARE | | | | [place] | | | | | | | | [address] | | + +--------+ +--------+ + +--------+ + +--------+ +--------+ + + | Guarantor Name | Accoun | Relation to | Date | Phone | Billing Address | | | t Type | Patient | of | | | | | | | | | | + +--------+ +--------+ + + | Zoltan Reece | Person | Self [birth year] | [address] | | | al/Fam | | 1930 | [phone] | [place] [address] | | | luis | | | 1 (Home) | | + +--------+ +--------+ + + Advance Directives + + + + + | Type | Date Recorded | Patient | Explanation | | | | Platen Grinder | | + + + + + | Advance | | | | | Directives and | | | | | Living Will | | | | + + + + + | Power of | | | | | Certified Prosthetist Vice President | | | | + + + + +
--- OUTSIDE RECORDS SUMMARY | ~2019-11-23 | XMS | Encounter Summary ---
Demographics + + + | Address | [address] | | | [place] [address] | + + + | Home Phone | | + + + | Preferred Language | Unknown | + + + | Marital Status | | + + + | Adventist Affiliation | NON | + + + | Race | White | + + + | Ethnic Group | Not or | + + + Author + + + | Author | [facility] | + + + | Organization | [facility] | + + + | Address | Unknown | + + + | Phone | Unavailable | + + + Support + + + + + | Name | Relationship | Address | Phone | + + + + + | Mariajose Reece | ECON | [address] | | | | [address] | | | | | [address] | | + + + + + Care Team Providers + +------+ + | Care Senior Portfolio Manager Name | Role | Phone | + +------+ + | Kike Velazquez MD | PCP | | + +------+ + Reason for Visit + + + | Reason | Comments | + + + | Follow-up encounter | | + + + Consultation (Routine) +--------+--------+ + + + + | Status | Reason | Specialty | Diagnoses / | Referred By | Referred To | | | | | Procedures | Contact | Contact | +--------+--------+ + + + + | Closed | | Facial | | Benji, | Moise Baldwin, | | | | Plastic | | Darrin Moura MD | [address] | | | | Surgery | | Keira | [address] | | | | | | Health ENT | [facility] | | | | | | [address] | [place], [place] | | | | | | [address] | [address] | | | | | | [address], | Phone: | | | | | | [place] [address] | [phone] | | | | | | Phone: | Fax: | | | | | | [phone] | [phone] | | | | | | Fax: | | | | | | | [phone] | | +--------+--------+ + + + + Encounter Details +--------+---------+ + + + | Date | Type | Department | Care Team | Description | +--------+---------+ + + + | 07/06/ | Office | Otolaryngology | Moise Baldwin MD | Nasal obstruction; | | 2010 | Visit | Facial Plastics & | [address] | Acquired deformity | | | | Reconstructive | [address] [place], | of nose; Postop | | | | Services at [facility] | [place] [address] | check | | | | [address] | [phone] | | | | | [facility] | | | | | | and Healing, | | | | | | [address] | | | | | | Floor [place], [place] | | | | | | [address] | | | | | | [phone] | | | +--------+---------+ + + + Social History + +-------+ [...] + + documented as of this encounter Progress Notes Georgi Guillen MD - 07/06/2010 9:36 AM PDTClinic: Facial Plastic and Reconstructive [facility] Zoltan Reece is a 80 y.o. 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 He is delighted with the improvement in the appearance of his nose. He can also b reathe a lot better out of the left side. No donor site issues/complaints from the left ear . My examination confirms complete healing of the composite graft with 100% take. Left alar rim has good strength and contour, with a subtle notching at the soft tissue triangle the on ly interruption of a smooth rim contour. Nasal passageways are patent bilaterally. Auricul ar incision is well healed. All questions were answered today. He mentioned some concern to improving subtle interrupt ion/notching of the alar rim contour with another procedure, but will think this over. Both the patient and I are pleased with his outcome at this time. Followup will be PRN. GEORGI GUILLEN MD Facial Plastic & Reconstructive Surgery Dept Otolaryngology Head Neck Surgery I personally interviewed the patient, duplicated the pertinent parts of the physical examin ation and procedure and personally formulated the plan. I have reviewed, entered my findings , and agree with the above documentation. Moise Baldwin MD FACS Professor Facial Plastic and Reconstructive Surgery Dept. of Otolaryngology/Head and Neck Surgery [facility] tel fax email [email or web address] Duane Milan - 07/06/2010 9 :02 AM PDTAdditional staff support provided to the patient during this encounter included: Health maintenance reviewed and documented. documented in this encounter Plan of Treatment Not on filedocumented as of this encounter Visit Diagnoses + + | Diagnosis | + + | Nasal obstruction Other diseases of nasal cavity and sinuses | + + | Acquired deformity of nose | + + | Postop check Follow-up examination, following unspecified surgery | + + documented in this encounter"
--- OUTSIDE RECORDS SUMMARY | ~2019-11-23 | XMS | Encounter Summary ---
Demographics + + + | Address | [address] | | | [place] [address] | + + + | Home Phone | | + + + | Preferred Language | Unknown | + + + | Marital Status | | + + + | Worship Affiliation | NON | + + + | Race | White | + + + | Ethnic Group | Not or | + + + Author + + + | Author | [facility] | + + + | Organization | [facility] | + + + | Address | Unknown | + + + | Phone | Unavailable | + + + Support + + + + + | Name | Relationship | Address | Phone | + + + + + | Mariajose Reece | ECON | [address] | | | | [address] | | | | | [address] | | + + + + + Care Team Providers + +------+ + | Care Division Leader Name | Role | Phone | + +------+ + | Kike Velazquez MD | PCP | | + +------+ + Reason for Visit +---------+ + | Reason | Comments | +---------+ + | Post Op | | +---------+ + Encounter Details +--------+---------+ + + + | Date | Type | Department | Care Team | Description | +--------+---------+ + + + | 03/21/ | Office | Otolaryngology | Moise Baldwin MD | Nasal obstruction; | | 2009 | Visit | Facial Plastics & | [address] | Acquired deformity | | | | Reconstructive | [address], | of nose | | | | Services at [facility] | [place] [address] | | | | | [address] | [phone] | | | | | [facility] | | | | | | and Healing, | | | | | | Building [address], [address]th | | | | | | Floor [place], [place] | | | | | | [address] | | | | | | [phone] | | | +--------+---------+ + + + [...] + + documented as of this encounter Last Filed Vital Signs + + + + + | Vital Sign | Reading | Time Taken | Comments | + + + + + | Blood Pressure | - | - | | + + + + + | Pulse | - | - | | + + + + + | Temperature | - | - | | + + + + + | Respiratory Rate | - | - | | + + + + + | Oxygen Saturation | - | - | | + + + + + [...] + + + documented in this encounter Progress Notes Kym Brock PA-C - 03/21/2010 2:31 PM PSTClinic: [facility] Kym Fiore PA-C, am functioning as a scribe for Moise Baldwin MD FACS. Zoltan Reece is a 80 y.o. male who returns for followup 1 week out from [facility] [facility] via external approach with left ear composite graft for left alar notching and collapse with airway obstruction, with preauricular FTSG to ear donor site. He notes expected conge stion, however is breathing better out of both sides with only a bit of restriction. He is doing well. The splint was removed today and the nasal passageways were gently suctioned. My examination confirms satisfactory healing process. Nasal passageways are patent bilateral ly, composite graft intact with some darker hemorrhagic crusting which was left undisturbed today. Auricular incision is well healed. All questions were answered today. Followup arr anged for 2-3 months. Both the patient and his are pleased with his progress at this t penny. I have reviewed and verified the above scribed note of my visit with this patient as record ed by Kym Brock PA-C. Moise Baldwin MD FACS Professor Facial Plastic and Reconstructive Surgery Dept. of Otolaryngology/Head and Neck Surgery [facility] [place] tel fax email [email or web address] documented in this encounte r Plan of Treatment Not on filedocumented as of this encounter Visit Diagnoses + + | Diagnosis | + + | Nasal obstruction Other diseases of nasal cavity and sinuses | + + | Acquired deformity of nose | + + documented in this encounter
--- OUTSIDE RECORDS SUMMARY | ~2019-11-23 | XMS | Encounter Summary ---
Demographics + + + | Address | [address] | | | [place] [address] | + + + | Home Phone | | + + + | Preferred Language | Unknown | + + + | Marital Status | | + + + | Caodaism Affiliation | NON | + + + | Race | White | + + + | Ethnic Group | Not or | + + + Author + + + | Author | [facility] | + + + | Organization | [facility] | + + + | Address | Unknown | + + + | Phone | Unavailable | + + + Support + + + + + | Name | Relationship | Address | Phone | + + + + + | Mariajose Reece | ECON | [address] | | | | [address] | | | | | [address] | | + + + + + Care Team Providers + +------+ + | Care Depositing Machine Operator Name | Role | Phone | + +------+ + | Kike Velazquez MD | PCP | | + +------+ + Encounter Details +--------+ + + + + | Date | Type | Department | Care Team | Description | +--------+ + + + + | 08/16/ | Documentati | NON-[facility] | Unknown . | | | 2017 | on | Department | | | +--------+ + + + [...] filedocumented as of this encounter Visit Diagnoses Not on filedocumented in this encounter"
--- OUTSIDE RECORDS SUMMARY | ~2019-11-23 | XMS | Encounter Summary ---
Demographics + + + | Address | [address] | | | [place] [address] | + + + | Home Phone | | + + + | Preferred Language | Unknown | + + + | Marital Status | | + + + | Gnosticism Affiliation | NON | + + + | Race | White | + + + | Ethnic Group | Not or | + + + Author + + + | Author | [facility] | + + + | Organization | [facility] | + + + | Address | Unknown | + + + | Phone | Unavailable | + + + Support + + + + + | Name | Relationship | Address | Phone | + + + + + | Mariajose Reece | ECON | [address] | | | | [address] | | | | | [address] | | + + + + + Care Team Providers + +------+ + | Care Cellophane Tester Name | Role | Phone | + +------+ + | Kike Velazquez MD | PCP | | + +------+ + Encounter Details +--------+ + + + + | Date | Type | Department | Care Team | Description | +--------+ + + + + | 08/03/ | Documentati | NON-[facility] | Unknown . | | | 2020 | on | Department | | | [...]
--- OUTSIDE RECORDS SUMMARY | ~2019-11-23 | XMS | Encounter Summary ---
Demographics + + + | Address | [address] | | | [place] [address] | + + + | Home Phone | | + + + | Preferred Language | Unknown | + + + | Marital Status | | + + + | Jain Affiliation | NON | + + + | Race | White | + + + | Ethnic Group | Not or | + + + Author + + + | Author | [facility] | + + + | Organization | [facility] | + + + | Address | Unknown | + + + | Phone | Unavailable | + + + Support + + + + + | Name | Relationship | Address | Phone | + + + + + | Mariajose Reece | ECON | [address] | | | | [address] | | | | | [address] | | + + + + + Care Team Providers + +------+ + | Care Deburrer Strip Name | Role | Phone | + +------+ + | Kike Velazquez MD | PCP | | + +------+ + Encounter Details +--------+ + + + + | Date | Type | Department | Care Team | Description | +--------+ + + + + | 09/10/ | Hospital | Dermatopathology | | | | 2012 | Encounter | [address] | | | | | | Mailcode: CH16D | | | | | | [facility] | | | | | | and Healing, | | | | | | Building | | | | | | Floor [place], [place] | | | | | | [address] | | | | | | [phone] | | | +--------+ + + + [...] + + + +---------+ + + | DN-Thz-Talsb | Take by mouth. | | 0 [...] Received: | | | | | | [id number] x 1 | | | | | [...] Returned: | | | | | | [id number] x 1 | | | | | [...] [facility] | Mailcode [address]D [address] | [place] [address] | | | DERMATOPATHOLOGY | [address] | | | + + + + + | [facility] | Mailcode CH[address]D [address] | [place] [address] | | | DERMATOPATHOLOGY | [address] | | | + + + + + documented in this encounter Visit Diagnoses Not on filedocumented in this encounter"
--- OUTSIDE RECORDS SUMMARY | ~2019-11-23 | XMS | Encounter Summary ---
Demographics + + + | Address | [address] | | | [place] [address] | + + + | Home Phone | | + + + | Preferred Language | Unknown | + + + | Marital Status | | + + + | Pentecostal Affiliation | NON | + + + | Race | White | + + + | Ethnic Group | Not or | + + + Author + + + | Author | [facility] | + + + | Organization | [facility] | + + + | Address | Unknown | + + + | Phone | Unavailable | + + + Support + + + + + | Name | Relationship | Address | Phone | + + + + + | Mariajose Reece | ECON | [address] | | | | [address] | | | | | [address] | | + + + + + Care Team Providers + +------+ + | Care Wool Grower Name | Role | Phone | + +------+ + | Kike Velazquez MD | PCP | | + +------+ + Encounter Details +--------+ + + + + | Date | Type | Department | Care Team | Description | +--------+ + + + + | 03/08/ | Hospital | Dermatopathology | | | | 2016 | Encounter | [address] | | | | | | Mailcode: CH16D | | | | | | [facility] | | | | | | and Healing, | | | | | | Building , | | | | | | Floor [place], [place] | | | | | | [address] | | | | | | [phone] | | | +--------+ + + + [...] + + + +---------+ + + | LK-Nfl-Llzsc | Take by mouth. | | 0 [...] papular | | | | | | cvulx-ulu-pwa skin, | | | | | | [id number]. The surgical | | | | | [...] | | | | | | papular nrogn-rfk-ewhtm | | | | | | skin, [id number]. The | | | | | | [...] papular | | | | | | sfwmi-wkfl-hyp skin, | | | | | | [id number]. 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
--- OUTSIDE RECORDS SUMMARY | ~2019-11-23 | XMS | Encounter Summary ---
Demographics + + + | Address | [address] | | | [place] [address] | + + + | Home Phone | | + + + | Preferred Language | Unknown | + + + | Marital Status | | + + + | Yarsanism Affiliation | NON | + + + | Race | White | + + + | Ethnic Group | Not or | + + + Author + + + | Author | [facility] | + + + | Organization | [facility] | + + + | Address | Unknown | + + + | Phone | Unavailable | + + + Support + + + + + | Name | Relationship | Address | Phone | + + + + + | Mariajose Reece | ECON | [address] | | | | [address] | | | | | [address] | | + + + + + Care Team Providers + +------+ + | Care Tobacco Drier Operator Name | Role | Phone | + +------+ + | Kike Velazquez MD | PCP | | + +------+ + Reason for Visit + + + | Reason | Comments | + + + | Follow-up encounter | | + + + Encounter Details +--------+---------+ + + + | Date | Type | Department | Care Team | Description | +--------+---------+ + + + | 03/16/ | Office | Otolaryngology | Moise Baldwin MD | Nasal obstruction; | | 2009 | Visit | Facial Plastics & | [address] | Acquired deformity | | | | Reconstructive | [address], | of nose; Postop | | | | Services at [facility] | [place] [address] | check | | | | [address] | [phone] | | | | | [facility] | | | | | | and Healing, | | | | | | Building [address], | | | | | | Floor [place], [place] | | | | | | [address] | | | | | | [phone] | | | +--------+---------+ + + + [...] documented as of this encounter Progress Notes Milan Caraballo - 03/16/2010 8:59 AM PSTAdditional staff support provided to the patient valeria randall this encounter included: Health maintenance reviewed and documented. Kym Pinto PA-C - 03/16/20 10 8:56 AM PSTClinic: Facial Plastic and Reconstructive Surgery Clinic Kym Fiore PA-C, am functioning as a scribe for Moise Baldwin MD FACS. Zoltan Reece is a 80 y.o. male who returns for followup one day out from [facility] via external approach with left ear composite graft for left alar notching and preauri cular FTSG to ear donor site. He is doing well and relates he noticed improved breathing on the left instantly. He reports minimal pain well controlled with Tylenol, good appetite. My examination confirms satisfactory healing process. Nasal external tape bandage is in pl leatha and well adherent. Left auricular incision and bolster stitches intact, no seroma. Nasal passageways are patent with mild hemorrhagic crust, septum midline. Composite graft appear s intact. I discussed with him forehead flap for revision of scar tissue over nasal tip and he indicates he is not bothered by it at this time. He will restart Plavix and ASA today. H e will start antibiotics today. All questions were answered today. Followup arranged for 1 week. I have reviewed and verified the above scribed note of my visit with this patient as record ed by Kym Brock PA-C. Moise Baldwin MD FACS Professor Facial Plastic and Reconstructive Surgery Dept. of Otolaryngology/Head and Neck Surgery [facility] tel fax email [email or web address] documented in this encounte r Plan of [...]
--- OUTSIDE RECORDS SUMMARY | ~2019-11-23 | XMS | Encounter Summary ---
Demographics + + + | Address | [address] | | | [place] [address] | + + + | Home Phone | | + + + | Preferred Language | Unknown | + + + | Marital Status | | + + + | Hoahaoism Affiliation | Unknown | + + + | Race | White | + + + | Ethnic Group | Not or | + + + Author + + + | Author | [facility] | | | and [place] | + + + | Organization | [facility] | | | and [place] | + + + | Address | Unknown | + + + | Phone | Unavailable | + + + Support + + +---------+ + | Name | Relationship | Address | Phone | + + +---------+ + | Toshia Olmstead | ECON | Unknown | | + + +---------+ + Care Team Providers + +------+ + | Care Environmental Health And Safety Intern Name | Role | Phone | + [...] [address]ALAVIZ | | | | | [place], [place] | [place] [address] | | | | | [address] | [phone] | | | | | [phone] | | | +--------+ + + + [...] on file | | + + + documented as of this encounter Plan of Treatment +--------+---------+ + + + | Date | Type | Specialty | Care Team | Description | +--------+---------+ + + + | 11/24/ | Office | Infectious Diseases | Doreen, | | | 2019 | Visit | | MD [address] | | | | | | [address] | | | | | | [place] [address] | | | | | | [phone] | | | | | | | | +--------+---------+ + + + documented as of this encounter Procedures + +--------+ [...] 0.59 m/s | | | MV Dec Kingman: 2.18 m/s2 MV DecT: 262.21 ms MV E Bharat: 0.57 | | | m/s MV E/A Ratio: 0.96 MV PHT: 76.04 ms MVA By PHT: 2.89 | | | cm2 Septal e': 0.08 m/s Septal E/e': 6.68 Lateral e': 0.05 | | | m/s Lateral E/e': 9.85 RAP: 5 mmHg RVSP: 30.75 mmHg TR | | | maxP.75 mmHg TR Vmax: 2.53 m/s Photo Stylist: JOSSELINE | | | Authenticated by: Abilio Whitfieldenid Report Date/Time: 08-22-2017 | | | 11:39:48 | | + + + + + | Procedure Note | + + | Cory Garcia Conversion - 11/26/2018 5:33 PM PDT Patient Name: Talboy, RobertDate of | | : 1930 Performing Physician: [...] cmLVPWd: | | 0.77 cmLVOT Area: 3.95 sz9QWNT Diam: 2.24 cm%FS: 18.89 %EF(Teich): 38.75 | [...] mlLAESV Index (A-L): 37.30 ml/m2LAAs A2C: 24.58 la3EOARR A-L A2C: 82.61 | | mlLALs A2C: 6.20 cmLAAs A4C: 20.85 oa1GSDNL A-L A4C: 68.03 mlLALs A4C: 5.42 | | cmRAAs: 18.61 et9ZEDAY A-L: 62.06 mlRAESV MOD: 54.78 mlRALs: 4.73 cmTAPSE: | | 1.84 cmAV maxP.87 mmHgAV meanP.04 mmHgAV Vmax: 1.64 m/Zena Vmean: 1.16 | | m/Zena VTI: 35.24 cmAVA Vmax: 2.35 cm2AVA (VTI): 2.20 hh2PDTY (Vmax): 0.00 | | cm2/m2AVAI (VTI): 0.00 cm2/m2LVOT maxP.83 mmHgLVOT meanP.87 mmHgLVSI Dopp: | | 36.07 ml/m2LVSV Dopp: 77.55 mlLVOT Vmax: 0.97 m/sLVOT Vmean: 0.63 m/sLVOT VTI: | | 19.59 cmMV A Bharat: 0.59 m/sMV Dec Kingman: 2.18 m/s2MV DecT: 262.21 msMV E Bharat: | | 0.57 m/sMV E/A Ratio: 0.96MV PHT: 76.04 msMVA By PHT: 2.89 vs7Gfgogu e': 0.08 | | m/sSeptal E/e': 6.68Lateral e': 0.05 m/sLateral E/e': 9.85RAP: 5 mmHgRVSP: | | 30.75 mmHgTR maxP.75 mmHgTR Vmax: 2.53 m/s Photo Stylist: JOSSELINEAuthenticated by: | | Abilio [facility] Date/Time: 08-22-2017 11:39:48 IMPRESSION: 1. The left [...] A Bharat: 0.59 m/s | |MV Dec Kingman: 2.18 m/s2 | |MV DecT: 262.21 ms [...] |TR Vmax: 2.53 m/s | | | |Photo Stylist: DBS | |Authenticated by: Abilio Mckinney | [...]
--- OUTSIDE RECORDS SUMMARY | ~2019-11-23 | XMS | Encounter Summary ---
Demographics + + + | Address | [address] | | | [place] [address] | + + + | Home Phone | | + + + | Preferred Language | Unknown | + + + | Marital Status | | + + + | Oriental Orthodox Affiliation | NON | + + + | Race | White | + + + | Ethnic Group | Not or | + + + Author + + + | Author | [facility] | + + + | Organization | [facility] | + + + | Address | Unknown | + + + | Phone | Unavailable | + + + Support + + + + + | Name | Relationship | Address | Phone | + + + + + | Mariajose Reece | ECON | [address] | | | | [address] | | | | | [address] | | + + + + + Care Team Providers + +------+ + | Care Dressage Judge Name | Role | Phone | + +------+ + | Kike Velazquez MD | PCP | | + +------+ + Reason for Visit AUTH/CERT +--------+--------+ + + + + | Status | Reason | Specialty | Diagnoses / | Referred By | Referred To | | | | | Procedures | Contact | Contact | +--------+--------+ + + + + | Closed | | | | | [facility] | | | | | | | Stay [address] | | | | | [address] | | | | | | | Mailcode: [facility] | | | | | | | Center | | | | | | | for Health | | | | | | | and Healing, | | | | | | | [address] | | | | | | | [place], [place] | | | | | | | [address] | | | | | | | Phone: | | | | | | | [phone] | | | | | | | Fax: | | | | | | | [phone] | +--------+--------+ + + + + Encounter Details +--------+ + + + + | Date | Type | Department | Care Team | Description | +--------+ + + + + | 03/15/ | Hospital | [facility] | Moise Baldwin MD | | | 2009 | Encounter | STAY [address] | [address] | | | | | [address] Mailcode: [facility] | Savanah Hernandez [place], | | | | | [facility] | [place] [address] | | | | | Health and Healing, | [phone] | | | | | [address] | | | | | | [place], [place] | | | | | | [address] | | | | | | [phone] | | | +--------+ + + + [...] Weight | 86.2 kg (190 lb) | 03/15/2010 10:44 AM | | | | | PST | | + + + + + | Height | 190.5 cm (6' 3") | 03/15/2010 10:44 AM | | | | | PST | | + + + + + | Body Mass Index | 23.75 | 03/15/2010 10:44 AM | | | | | PST | | + + + + + documented in this encounter Discharge Summaries Mignon Wu - 03/19/2010 11:15 PM PST documented in this encou nter Discharge Instructions Instructions Sarwat Jarret - 03/15/2010 Nursing Discharge I nstructions General discharge instructions for same-day procedure patients: Do not stay alone; a responsible person should be with you. Do not drive or drink alcohol for 24 hours or while on narcotic pain medication. Do not make any important personal or business decisions for 24 hours or while on narcotic pain medication. Advance diet to regular if no nausea. Eat lightly and avoid large, high fat or highly spic ed meals for 24-48 hours. IV site care instructions: Monitor IV site for pain, redness, swelling or drainage. If present, call your physician i mmediately. Minor redness and tenderness may be treated with warm, moist compresses for 24-48 hours. I f still red and tender after this, notify your physician. Call your provider if you experience: Difficulty breathing or unusual shortness of breath Persistent nausea or vomiting Excessive bleeding, drainage at the operative site Fever of 101 or greater, chills, increased pain that is not relieved by pain medication. Last oral pain medication: None given. Please follow instructions on prescription bottle, a nd take if needed. Home care instructions: Handout "Home Care After Nose Surgery" Follow-up appointment: Tomorrow at 9:00 am After arriving home you may receive a patient satisfaction survey from "Efren Sepulveda". We w rafi appreciate your feedback on the survey to help us provide excellent service to you and your families. Our scoring goal on the survey is to achieve a score of all 5's or "very goo d" and understand any concerns you may have with our performance in not reaching this goal. documented in this encounter Medications at Time of Discharge [...] + + + +---------+ + + | JC-Awi-Bljyi | Take by mouth. | | 0 [...] | + +--------+ + + + | PROCEDURE NOTE | Routin | 05/12/2015 | | Results for this | | | e | 7:56 AM | | procedure are in the | | | | PST | | results section. | + +--------+ + + + | ORDERS OTHER | | 03/15/2010 | | Results for this | | | | 6:35 PM | | procedure are in the | | | | PST | | results section. | + +--------+ + + + | ANESTHESIA/SEDATION | | 03/15/2010 | | Results for this | | | | 12:00 AM | | procedure are in the | | | | PST | | results section. | + +--------+ + + + | ANESTHESIA/SEDATION | | 03/15/2010 | | Results for this | | | | 12:00 AM | | procedure are in the | | | | PST | | results section. | + +--------+ + + + | OPERATION RECORD | | 03/15/2010 | | Results for this | | | | 12:00 AM | | procedure are in the | | | | PST | | results section. | + +--------+ + + + | OPERATION RECORD | | 03/15/2010 | | Results for this | | | | 12:00 AM | | procedure are in the | | | | PST | | results section. | + +--------+ + + + documented in this encounter Results PROCEDURE NOTE (05/12/2015 7:56 AM PST)ORDERS OTHER (03/15/2010 6:35 PM PST) + + + | Narrative | Performed At | + + + | | | + + + + + | Procedure Note | + + | Mignon Wu - 03/19/2010 11:15 PM PST | | | + + OPERATION RECORD (03/15/2010 12:00 AM PST) + + + | Narrative | Performed At | + + + | [id number] | | | [id number] | | | [id number] VANGIE Baez [id number] | | | Date: 03/15/2010 Attending Surgeon: | | | Moise Baldwin M.D. Director Of Student Financial Services(s): | | | ADDENDUM The dimensions of full-thickness skin graft harvested | | | were 3 cm x 1.5 cm, and the dimensions of the final graft were 1.8 | | | cm in length x 1 cm in width. Moise Baldwin M.D. | | | Facial Plastic and Reconstructive Surgery TD / [id number] / | | | [id number] / [id number] / | | + + + + + | Procedure Note | + + | Moise Baldwin MD - 04/06/2010 7:49 AM PST [id number] | | [id number] VANGIE SIDDIQUI | | G [id number] Date: 03/15/2010 Attending Surgeon: | | Moise Baldwin M.D. Director Of Student Financial Services(s): ADDENDUM The dimensions of full-thickness skin | | graft harvested were 3 cm x 1.5 cm,and the dimensions of the final graft were 1.8 cm in | | length x 1 cm inwidth. Moise Baldwin M.D.Facial Plastic and Reconstructive Surgery | | [facility] / [id number] / [id number] / [id number] / T: 04/05/2010 | |Attending Surgeon: Moise Baldwin M.D. | | | | | |Director Of Student Financial Services(s): | | | | | |ADDENDUM | | | | | |The dimensions of full-thickness skin graft harvested were 3 cm x 1.5 cm, | |and the dimensions of the final graft were 1.8 cm in length x 1 cm in | |width. | | | | | | | | | |Moise Baldwin M.D. | |Facial Plastic and Reconstructive Surgery | | | | | |TDW / HS | |[id number] / [id number] / [id number] / | | | | | | | | | | | | | | | | | | | | | + + OPERATION RECORD (03/15/2010 12:00 AM PST) + + + | Narrative | Performed At | + + + | [id number] | | | [id number] | | | [id number] VANGIE Baez [id number] | | | Date: 03/15/2010 Attending Surgeon: | | | Moise Baldwin M.D. Director Of Student Financial Services(s): | | | Sachin Taylor MD | | | Janay Garza M.D. | | | Kaelyn Aguayo M.D. Preoperative | | | Diagnosis(es): Nasal obstruction with collapse of left external | | | nasal valve and nasal septal deviation. Postoperative | | | Diagnosis(es): Nasal obstruction with collapse of left external nasal | | | valve and nasal septal deviation. Procedures Performed: | | | External approach septorhinoplasty with left auricular composite | | | graft and left preauricular full-thickness skin graft reconstruction | | | of auricular composite graft donor site. Specimens: No | | | specimens. Complications: No complications. 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 Procedure: The patient was taken to the operating | | | room and placed in the supine position on the operating table. | | | After satisfactory induction of general anesthesia with | | | oroendotracheal intubation, the nasal cavity was packed with | | | cocaine-soaked cottonoids, and the dorsum and septal mucosa were | | | infiltrated with 6 mL of a solution of 0.5% lidocaine, 0.25% | | | Marcaine with 1:100,000 epinephrine. The patient's face and ears | | | were prepped and draped, and the operation began with bilateral | | | marginal incisions joined by an inverted-V transcolumellar | | | incision. The elevation was very difficult over the domes and the | | | dorsum bilaterally due to scar tissue and loss of left dome | | | cartilage and scar contracture. Some bleeding was encountered and | | | controlled with electrocautery. After the soft tissue was | | | elevated, it became evident that the patient had lost a crescentic | | | segment of the left dome cartilage spanning from the intermediate | | | luiz on to the lateral luiz measuring approximately 1.5 cm in | | | length and approximately 0.8 cm in height with loss of cartilage | | | and vestibular skin. This was the cause of the collapse of the | | | external nasal valve and shifting of the nasal tip with | | | obstruction. The deviated septum was approached from above with | | | elevation of the left mucoperichondrial flap. The posterior bony | | | cartilaginous junction was disarticulated, and posteriorly, the | | | deviated bony septum was resected along with the inferiorly | | | deviated strip of cartilaginous septum and deviated bony maxillary | | | crest. A segment of the posterior inferior hed-gfxu-tcxohzo | | | quadrangular cartilage was resected for grafting purposes leaving | | | greater than 2 cm dorsal caudal strut. As it turned out, this was | | | not necessary, and the deviated portions were trimmed and the bulk | | | of the harvested cartilage was replaced back into the septal mucosal | | | flaps. The 2 leaves of the septal mucosal flaps were reapposed | | | with 4-0 Vicryl Rapide quilting mattress sutures. The inferior | | | cartilage strip harvested off the maxillary crest was shaped into a | | | columellar strut, and a pocket was created and this was inserted. | | | This was anchored with 4-0 gut horizontal mattress sutures x2. | | | This was sewn to the caudal septum with quilting mattress | | | sutures. This provided straightening of the septum into the | | | midline as well as the columella into the midline. Attention | | | was directed to the left conchal bowl where a composite graft was | | | withdrawn out for measuring 1.8 x 1.0 cm. This was locally | | | infiltrated with 1.5 mL of the same solution, and the composite graft | | | was harvested with the skin taken from the anterior surface. | | | Bleeding was controlled with electrocautery on the donor site. | | | The defect was repaired with full-thickness skin graft harvested | | | from the left preauricular crease after it was infiltrated with 1 | | | mL of the same anesthetic solution. The skin graft donor site was | | | closed in 2 layers using 5-0 Vicryl subcutaneous sutures and 6-0 | | | fast-absorbing gut running-locking skin stitches. The | | | full-thickness skin graft was sewn into the conchal bowl donor site | | | with 5-0 chromic running-locking stitches and bolster sutures x2. | | | The auricular composite graft was then trimmed to 1.3 cm of | | | cartilage with attached skin in a curved fashion and sewn into | | | position in 2 layers using 5-0 chromic simple interrupted sutures | | | for the skin to vestibular lining closure. This required 4 | | | sutures and then the 2 edges of the cartilage which spanned the | | | size of the defect and overlapped it were anchored with 5-0 PDS | | | horizontal mattress sutures x2. At this point, the skin flap | | | was sewn back down using a 5-0 PDS subcutaneous suture in the central | | | columellar incision. The transcolumellar incision was closed with | | | 6-0 fast-absorbing gut simple interrupted sutures. The marginal | | | incisions were repaired with 5-0 chromic simple interrupted | | | sutures. The routine intranasal Telfa dressing and external | | | splint were placed, and the procedure was terminated. The patient | | | was awakened, extubated, and taken to recovery room in satisfactory | | | condition having tolerated the procedure well without | | | complications. Moise Baldwin M.D. Facial Plastic and | | | Reconstructive Surgery [facility] / [id number] / [id number] / [id number] / D: | | | 03/15/2010 | | + + + + + | Procedure Note | + + | Moise Baldwin MD - 03/16/2010 9:56 AM PST [id number] | | [id number] NIKKICHAI ARTUR | | G [id number] Date: 03/15/2010 Attending Surgeon: | | Moise Baldwin M.D. Director Of Student Financial Services(s): Sachin Taylor MD | | Shay Giron | | Shay Aguayo Preoperative Diagnosis(es):Nasal obstruction with collapse of left | | external nasal valve and nasalseptal deviation. Postoperative Diagnosis(es):Nasal | | obstruction with collapse of left external nasal valve and nasalseptal deviation. | | Procedures Performed:External approach septorhinoplasty with left auricular composite | | graft andleft preauricular full-thickness skin graft reconstruction of | | auricularcomposite graft donor site. Specimens:No specimens. Complications:No | | complications. 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 | | Procedure:The patient was taken to the operating room and placed in the supineposition | | on the operating table. After satisfactory induction of generalanesthesia with | | oroendotracheal intubation, the nasal cavity was packedwith cocaine-soaked cottonoids, | | and the dorsum and septal mucosa wereinfiltrated with 6 mL of a solution of 0.5% | | lidocaine, 0.25% Marcaine with1:100,000 epinephrine. The patient's face and ears were | | prepped anddraped, and the operation began with bilateral marginal incisions joined byan | | inverted-V transcolumellar incision. The elevation was very difficultover the domes | | and the dorsum bilaterally due to scar tissue and loss ofleft dome cartilage and scar | | contracture. Some bleeding was encounteredand controlled with electrocautery. After | | the soft tissue was elevated, itbecame evident that the patient had lost a crescentic | | segment of the leftdome cartilage spanning from the intermediate luiz on to the lateral | | crusmeasuring approximately 1.5 cm in length and approximately 0.8 cm in heightwith loss | | of cartilage and vestibular skin. This was the cause of thecollapse of the external | | nasal valve and shifting of the nasal tip withobstruction. The deviated septum was | | approached from above with elevation of the leftmucoperichondrial flap. The posterior | | bony cartilaginous junction wasdisarticulated, and posteriorly, the deviated bony septum | | was resectedalong with the inferiorly deviated strip of cartilaginous septum | | anddeviated bony maxillary crest. A segment of the posterior zsukfjdswjd-afxk-glrkuzt | | quadrangular cartilage was resected for grafting purposesleaving greater than 2 cm | | dorsal caudal strut. As it turned out, this wasnot necessary, and the deviated portions | | were trimmed and the bulk of theharvested cartilage was replaced back into the septal | | mucosal flaps. The 2leaves of the septal mucosal flaps were reapposed with 4-0 Vicryl | | Rapidequilting mattress sutures. The inferior cartilage strip harvested off | | themaxillary crest was shaped into a columellar strut, and a pocket wascreated and this | | was inserted. This was anchored with 4-0 gut horizontalmattress sutures x2. This was | | sewn to the caudal septum with quiltingmattress sutures. This provided straightening of | | the septum into themidline as well as the columella into the midline. Attention was | | directed to the left conchal bowl where a composite graft waswithdrawn out for measuring | | 1.8 x 1.0 cm. This was locally infiltratedwith 1.5 mL of the same solution, and the | | composite graft was harvestedwith the skin taken from the anterior surface. Bleeding | | was controlledwith electrocautery on the donor site. The defect was repaired | | withfull-thickness skin graft harvested from the left preauricular crease afterit was | | infiltrated with 1 mL of the same anesthetic solution. The skingraft donor site was | | closed in 2 layers using 5-0 Vicryl subcutaneoussutures and 6-0 fast-absorbing gut | | running-locking skin stitches. Thefull-thickness skin graft was sewn into the conchal | | bowl donor site with5-0 chromic running-locking stitches and bolster sutures x2. The | | auricular composite graft was then trimmed to 1.3 cm of cartilage withattached skin in a | | curved fashion and sewn into position in 2 layers using5-0 chromic simple interrupted | | sutures for the skin to vestibular liningclosure. This required 4 sutures and then the | | 2 edges of the cartilagewhich spanned the size of the defect and overlapped it were | | anchored with5-0 PDS horizontal mattress sutures x2. At this point, the skin flap was | | sewn back down using a 5-0 PDSsubcutaneous suture in the central columellar incision. | | Thetranscolumellar incision was closed with 6-0 fast-absorbing gut simpleinterrupted | | sutures. The marginal incisions were repaired with 5-0 chromicsimple interrupted | | sutures. The routine intranasal Telfa dressing andexternal splint were placed, and the | | procedure was terminated. The patientwas awakened, extubated, and taken to recovery | | room in satisfactorycondition having tolerated the procedure well without complications. | | Moise Baldwin M.D.Facial Plastic and Reconstructive Surgery [facility] / [id number] / [id number] | | / [id number] / T: 03/16/2010 | | | | | |The deviated septum was approached from above with elevation of the left | |mucoperichondrial flap. The posterior bony cartilaginous junction was | |disarticulated, and posteriorly, the deviated bony septum was resected | |along with the inferiorly deviated strip of cartilaginous septum and | |deviated bony maxillary crest. A segment of the posterior inferior | |wrn-dgxp-popfioy quadrangular cartilage was resected for grafting purposes | |leaving greater than 2 cm dorsal caudal strut. As it turned out, this was | |not necessary, and the deviated portions were trimmed and the bulk of the | |harvested cartilage was replaced back into the septal mucosal flaps. The 2 | |leaves of the septal mucosal flaps were reapposed with 4-0 Vicryl Rapide | |quilting mattress sutures. The inferior cartilage strip harvested off the | |maxillary crest was shaped into a columellar strut, and a pocket was | |created and this was inserted. This was anchored with 4-0 gut horizontal | |mattress sutures x2. This was sewn to the caudal septum with quilting | |mattress sutures. This provided straightening of the septum into the | |midline as well as the columella into the midline. | | | | | |Attention was directed to the left conchal bowl where a composite graft was | |withdrawn out for measuring 1.8 x 1.0 cm. This was locally infiltrated | |with 1.5 mL of the same solution, and the composite graft was harvested | |with the skin taken from the anterior surface. Bleeding was controlled | |with electrocautery on the donor site. The defect was repaired with | |full-thickness skin graft harvested from the left preauricular crease after | |it was infiltrated with 1 mL of the same anesthetic solution. The skin | |graft donor site was closed in 2 layers using 5-0 Vicryl subcutaneous | |sutures and 6-0 fast-absorbing gut running-locking skin stitches. The | |full-thickness skin graft was sewn into the conchal bowl donor site with | |5-0 chromic running-locking stitches and bolster sutures x2. | | | | | |The auricular composite graft was then trimmed to 1.3 cm of cartilage with | |attached skin in a curved fashion and sewn into position in 2 layers using | |5-0 chromic simple interrupted sutures for the skin to vestibular lining | |closure. This required 4 sutures and then the 2 edges of the cartilage | |which spanned the size of the defect and overlapped it were anchored with | |5-0 PDS horizontal mattress sutures x2. | | | | | |At this point, the skin flap was sewn back down using a 5-0 PDS | |subcutaneous suture in the central columellar incision. The | |transcolumellar incision was closed with 6-0 fast-absorbing gut simple | |interrupted sutures. The marginal incisions were repaired with 5-0 chromic | |simple interrupted sutures. The routine intranasal Telfa dressing and | |external splint were placed, and the procedure was terminated. The patient | |was awakened, extubated, and taken to recovery room in satisfactory | |condition having tolerated the procedure well without complications. | | | | | | | | | |Moise Baldwin M.D. | |Facial Plastic and Reconstructive Surgery | | | | | |TDW / HS | |[id number] / [id number] / [id number] / | | | | | | | | | | | | | | | | | | | | | + + ANESTHESIA/SEDATION (03/15/2010 12:00 AM PST) + + + | Narrative | Performed At | + + + | | | + + + + + | Procedure Note | + + | Mignon Wu - 03/15/2010 5:53 PM PST | | | + + ANESTHESIA/SEDATION (03/15/2010 12:00 AM PST) + + + | Narrative | Performed At | + + + | | | + + + + + | Procedure Note | + + | Mignon Wu - 03/15/2010 4:43 PM PST | | | + + documented in this encounter Visit Diagnoses Not on filedocumented in this encounter
--- OUTSIDE RECORDS SUMMARY | ~2019-11-23 | XMS | Encounter Summary ---
Demographics + + + | Address | [address] | | | [place] [address] | + + + | Home Phone | | + + + | Preferred Language | Unknown | + + + | Marital Status | | + + + | Adventism Affiliation | NON | + + + | Race | White | + + + | Ethnic Group | Not or | + + + Author + + + | Author | [facility] | + + + | Organization | [facility] | + + + | Address | Unknown | + + + | Phone | Unavailable | + + + Support + + + + + | Name | Relationship | Address | Phone | + + + + + | Mariajose Reece | ECON | [address] | | | | | [address] | | | | | [address] | | + + + + + Care Team Providers + +------+ + | Care Research Nurse Name | Role | Phone | + [...] | | | Reconstructive | [address] [place], | of nose | | | | Services at [facility] | [place] [address] | | | | | [address] | [phone] | | | | | [facility] | | | | | | and Healing, | | | | | | [address] | | | | | | Floor [place], [place] | | | | | | [address] | | | | | | [phone] | | | +--------+---------+ + + + [...] Surgery Dept. of Otolaryngology/Head and Neck Surgery [facility] tel fax email [email or web address] in this encounte r Plan of Treatment Not on filedocumented as of this encounter Visit Diagnoses + + | Diagnosis | + + | Nasal obstruction Other diseases of nasal cavity and sinuses | + + | Acquired deformity of nose | + + documented in this encounter
--- OUTSIDE RECORDS SUMMARY | ~2019-11-23 | XMS | Clinical Summary ---
Demographics + + + | Address | [address] | | | [place] [address] | + + + | Home Phone | | + + + | Preferred Language | Unknown | + + + | Marital Status | | + + + | Sabianism Affiliation | NON | + + + [...] [address] | | | | | [address] | | + + + + + Care Team Providers + +------+ + | Care Press Operator Automatic Name | Role | Phone | + +------+ + | Kike Velazquez MD | PCP | | + +------+ + Source Comments EMELYN is fully live on both [facility] Ambulatory and [facility] InPatient.[facility] Allergies Not on File Medications + + [...] | | + + + +---------+------+------+-------+ | ZW-Auq-Rwncn | Take by mouth. | | 0 [...] | | | | | | | [address] | | + +--------+ +--------+ + +--------+ | HUMANA | HUMANA | [phone] | 04/07/19 | [phone] | [address] | PPO | | | | | 17-Pre | 2 | [address] | | | | CHOICE | | sent | | [place], | | | | CARE | | | | [place] | | | | | | | | [address] | | + +--------+ +--------+ + +--------+ [...] | 1930 | [phone] | [place] [address] | | | luis | | | 1 (Home) | | + +--------+ +--------+ + + Advance Directives + + + + + | Type | Date Recorded | Patient | Explanation | | | | Security Team Lead | | + + + + + | Advance | | | | | Directives and | | | | | Living Will | | | | + + + + + | Power of | | | | | Correctional Maintenance Technician | | | | + + + + +
--- OUTSIDE RECORDS SUMMARY | ~2019-11-23 | XMS | Encounter Summary ---
Demographics + + + | Address | [address] | | | [place] [address] | + + + | Home Phone | | + + + | Preferred Language | Unknown | + + + | Marital Status | | + + + | Faith Affiliation | NON | + + + | Race | White | + + + | Ethnic Group | Not or | + + + Author + + + | Author | [facility] | + + + | Organization | [facility] | + + + | Address | Unknown | + + + | Phone | Unavailable | + + + Support + + + + + | Name | Relationship | Address | Phone | + + + + + | Mariajose Reece | ECON | [address] | | | | [address] | | | | | [address] | | + + + + + Care Team Providers + +------+ + | Care Can Washer Name | Role | Phone | + [...] | | | Reconstructive | Savanah Hernandez [place], | examination (Primary | | | | Services at [facility] | [place] [address] | Dx) | | | | [address] | [phone] | | | | | [facility] | | | | | | and Healing, | | | | | | Building [address], 5th | | | | | | Floor [facility] [place] | | | | | | [address] | | | | | | [phone] | | | +--------+---------+ + + + [...] take place on the hill at the [facility]: Surgeries scheduled in the [facility] (4 North): registration is located on the 4th floor of [facility] (Day Surgery). Surgeries scheduled in the [facility]: registration is located on the 9th floor. Surgeries scheduled in [facility]: registration is located on the 6th floor. Surgeries scheduled in the [facility]: registration is located i n the [facility] on the first floor. For surgeries scheduled to take place at the [facility]: registration is l ocated on the 4th [...] If you use specialized medical equipment at [facility], please check with your provider before bringing [...] AM PSTClinic: Facial Plastic and Reconstructive Surgery in [place]oltan Reece is a 80 y.o. male [...] Surgery Dept. of Otolaryngology/Head and Neck Surgery [facility] & Science [place] [email or web address] Milan Mortensen - 03/14/2010 2 :45 PM [...]
--- OUTSIDE RECORDS SUMMARY | ~2019-11-23 | XMS | Encounter Summary ---
Demographics + + + | Address | [address] | | | [place] [address] | + + + | Home Phone | | + + + | Preferred Language | Unknown | + + + | Marital Status | | + + + | Mormonism Affiliation | NON | + + + | Race | White | + + + | Ethnic Group | Not or | + + + Author + + + | Author | [facility] | + + + | Organization | [facility] | + + + | Address | Unknown | + + + | Phone | Unavailable | + + + Support + + + + + | Name | Relationship | Address | Phone | + + + + + | Mariajose Reece | ECON | [address] | | | | [address] | | | | | [address] | | + + + + + Care Team Providers + +------+ + | Care Litigation Attorney Name | Role | Phone | + [...] | | | | | | Mailcode: [facility] | | | | | | | Center | | | | | | | for Health | | | | | | | and Healing, | | | | | | | [address] | | | | | | | [place], [place] | | | | | | | [address] | | | | | | | Phone: | | | | | | | [phone] | | | | | | | Fax: | | | | | | | [phone] | +--------+--------+ + + + + Encounter [...] | | | | | Ave Mailcode: [facility] | Savanah Hernandez [place], | | | | | [facility] | [place] [address] | | | | | Health and Healing, | [phone] | | | | | [address] | | | | | | [place], [place] | | | | | | [address] | | | | | | [phone] | | | +--------+ + + + [...] + + + +---------+ + + | GB-Yot-Mincm | Take by mouth. | | 0 [...] Performed At | + + + | [id number] | | | [id number] | | | [id number] VANGIE Baez [id number] | | | Date: 03/15/2010 Attending Surgeon: | | | Moise Baldwin M.D. Embedded Software Architect(s): | | | ADDENDUM The dimensions of full-thickness skin graft harvested | | | were 3 cm x 1.5 cm, and the dimensions of the final graft were 1.8 | | | cm in length x 1 cm in width. Moise Baldwin M.D. | | | Facial Plastic and Reconstructive Surgery TD / [id number] / | | | [id number] / [id number] / | | + + + + + | Procedure Note | + + | Moise Baldwin MD - 04/06/2010 7:49 AM PST [id number] | | [id number] VANGIE SIDDIQUI | | G [id number] Date: 03/15/2010 Attending Surgeon: | | Moise Baldwin M.D. Embedded Software Architect(s): ADDENDUM The dimensions of full-thickness skin | | graft harvested were 3 cm x 1.5 cm,and the dimensions of the final graft were 1.8 cm in | | length x 1 cm inwidth. Moise Baldwin M.D.Facial Plastic and Reconstructive Surgery | | TDW / [id number] / [id number] / [id number] / T: 04/05/2010 | |Attending Surgeon: Moise Baldwin M.D. | | | | | |Embedded Software Architect(s): | | | | | |ADDENDUM | [...] | | | |TDW / HS | |[id number] / [id number] / [id number] / | | | | | | | | | | | | | | | | | | | | | + + OPERATION RECORD (03/15/2010 12:00 AM PST) + + + | Narrative | Performed At | + + + | [id number] | | | [id number] | | | [id number] VANGIE Baez [id number] | | | Date: 03/15/2010 Attending Surgeon: | | | Moise Baldwin M.D. Embedded Software Architect(s): | | | Sachin Taylor MD | [...] crest. A segment of the posterior inferior ris-jymn-bpmjwrf | | | quadrangular cartilage was resected [...] Plastic and | | | Reconstructive Surgery [facility] / [id number] / [id number] / [id number] / D: | | | 03/15/2010 | | + + + + + | Procedure Note | + + | Moise Baldwin MD - 03/16/2010 9:56 AM PST [id number] | | [id number] NIKKICHAI ARTUR | | G [id number] Date: 03/15/2010 Attending Surgeon: | | Moise Baldwin M.D. Embedded Software Architect(s): Sachin Taylor MD | | Shay Giron | | Shay Agauyo Preoperative Diagnosis(es):Nasal obstruction with collapse of left [...] the leftdome cartilage spanning from the intermediate luzi on to the lateral | | crusmeasuring [...] maxillary crest. A segment of the posterior eozjgmeyhgy-riss-dejwsbx | | quadrangular cartilage was resected for [...] M.D.Facial Plastic and Reconstructive Surgery [facility] / [id number] / [id number] | | / [id number] / T: 03/16/2010 | | | | | |The deviated septum was approached from above with elevation of the left | |mucoperichondrial flap. The posterior bony cartilaginous junction was | |disarticulated, and posteriorly, the deviated bony septum was resected | |along with the inferiorly deviated strip of cartilaginous septum and | |deviated bony maxillary crest. A segment of the posterior inferior | |tnr-hqda-eecqjkx quadrangular cartilage was resected for grafting purposes [...] | | | |TDW / HS | |[id number] / [id number] / [id number] / | | | | | | [...]
--- OUTSIDE RECORDS SUMMARY | ~2019-11-23 | XMS | Clinical Summary ---
Demographics + + + | Address | [address] | | | [place] [address] | + + + | Home Phone | | + + + | Preferred Language | Unknown | + + + | Marital Status | | + + + | Mormon Affiliation | Unknown | + + + | Race | White | + + + | Ethnic Group | Not or | + + + Author + + + | Author | [facility] | | | and [place] | + + + | Organization | [facility] | | | [...] Team Providers + +------+ + | Care Church Business Administrator Name | Role | Phone | + +------+ + | Varun Khalil MD | PCP | | + +------+ + Allergies No Known Allergies Medications + + + +---------+------+------+-------+ | Medication [...] | | + + + +---------+------+------+-------+ | famotidine | Take 20 mg by mouth | | 0 | | | Activ | | (PEPCID) 20 mg | 2 times daily. | | | | | e | | tablet | | | | | | | + + + +---------+------+------+-------+ | mupirocin | Apply topically 3 | | 0 | | | Activ | | (BACTROBAN) 2% | times daily. | | | | | e | | ointment | | | | | | | + + + +---------+------+------+-------+ | clindamycin | Take 300 mg by mouth | | 0 | | | Activ | | (CLEOCIN) 300 MG | 3 times daily. | | | | | e | | capsule | | | | | | | + + + +---------+------+------+-------+ | linezolid (ZYVOX) | Take 1 tablet by | 20 | 0 | 08/0 | 08/1 | Expir | | 600 mg tablet | mouth 2 times daily | tablet | | 5/20 | 5/20 | ed | | | for 10 days. 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); | | | | | | History of insect | | | | | | bite | +--------+ + + + + | 11/09/ | Orders Only | | Yvonne Blair, | Skin lesions; | | 2019 | | | Sales Promotion Officer | History of | | | | | | 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 | + + +---------+ + + + + | Sex Assigned at | Date Recorded | | | | + + + | Not on file | | + + + Last Filed Vital Signs + + + + + | Vital Sign | Reading | Time Taken | Comments | + + + + + | Blood Pressure | 127/77 | 11/10/2019 1:36 PM | | | | | PDT | | + + + + + | Pulse | 75 | 11/10/2019 1:36 PM | | | | | PDT | | + + + + + | Temperature | 36.8 C (98.2 F) | 11/10/2019 1:36 PM | | | | | PDT | | + + + + + | Respiratory Rate | 16 | 11/10/2019 1:36 PM | | | | | PDT | | + + + + + | Oxygen Saturation | 99% | 11/10/2019 1:36 PM | | | | | PDT | | + + + + + | Inhaled Oxygen | - | - | | | Concentration | | | | + + + + + | Weight | 86.2 kg (190 lb) | 11/10/2019 1:36 PM | | | | | PDT | | + + + + + | Height | 190.5 cm (6' 3") | 11/10/2019 1:36 PM | | | | | PDT | | + + + + + | Body Mass Index | 23.75 | 11/10/2019 1:36 PM | | | | | PDT | | + + + + + Plan of Treatment +--------+---------+ + + + | Date | Type | Specialty | Care Team | Description | +--------+---------+ + + + | 11/24/ | Office | Infectious Diseases | Doreen, | | | 2019 | Visit | | MD Nisa [address] | | | | | [address] | | | | | | [place] [address] | | | | | | [phone] | | | | | | | | +--------+---------+ + + + + + + + + | Health Maintenance | Due Date | Last | Comments | | | | Done | | + + + + + | Vaccine: Zoster (3 | | 08/04/19 | | | of 3) | 9 | 19, | | | | | 09/30/19 | | | | | 07 | | + + + + + | Adult Annual | | | | | Wellness Visit | 9 | | | + + + + + | Vaccine: Influenza | | 01/12/20 | | | (#1) | 0 | 19, | | | | | 12/16/19 | | | | | 18, | | | | | 01/07/20 | | | | | 17, | | | | | Addition | | | | | al | | | | | history | | | | | exists | | + + + + + | Vaccine: | | 05/15/19 | | | Dtap/Tdap/Td (3 - | 6 | 16, | | | Td) | | 12/03/19 | | | | | 12 | | + + + + + | Vaccine: | Completed | 05/15/19 | | | Pneumococcal 65+ | | 16, | | | | | 04/26/19 | | | | | 15 | | + + + + + Procedures + +--------+ + + + | Procedure Name | Priori | Date/Time | Associated Diagnosis | Comments | | | ty | | | | + +--------+ + + + | CULTURE, WOUND, | Routin | 11/10/2019 | Skin lesions | Results for this | | SUPERFICIAL | e | 9:09 PM | History of | procedure are in the | | | | PDT | methicillin | results section. | | | | | resistant | | | | | | staphylococcus | | | | | | aureus (MRSA) | | + +--------+ + + + from Last 3 Months Results Culture, Wound, Superficial (11/10/2019 9:09 PM PDT) + + + + + + | Component | Value | Ref Range | Performed | Pathologist | | | | | At | Signature | + + + + + + | RESULT | 1+NORMAL SKIN ARLENE | | REFERENCE | | | | ISOLATED | | LAB | | | | | | [facility] | | | | | | LABORATORY | | + + + + + + | RESULT | Testing performed at | | REFERENCE | | | | TCL;[address] | | LAB | | | | Blvd;[place] | | [facility] | | | | [id number]: Testing | | LABORATORY | | | | performed at [facility], [address] | | | [address], | | | | | | [place] [address] | | | | + + + + + + + + | Specimen | + + | Body Fluid - Entire | | right lower leg | | (body structure) | + + + + + + + | Performing | Address | City/State/Zipcode | Phone Number | | Organization | | | | + + + + + | REFERENCE LAB | [address] [place] [address] | [place], [place] | [phone] | | [facility] | Blvd. | [address] | | | LABORATORY | | | | + + + + + | REFERENCE LAB | [address] [place] [address] | [place], [place] | | | [facility] | Blvd. | [address] | | | LABORATORY | | | | + + + + + from Last 3 Months Insurance + +--------+ +--------+ +---------+--------+ | Payer | Benefi | Subscriber | Effect | Phone | Address | Type | | | t Plan | ID | blank | | | | | | / | | Dates | | | | | | Group | | | | | | + +--------+ +--------+ +---------+--------+ | MEDICARE | MEDICA | [id number] | | [phone] | | Medica | | | RE | | 997-Pr | 5 | | re | | | PART A | | esent | | | | | | AND B | | | | | | + +--------+ +--------+ +---------+--------+ | HUMANA | HUMANA | [id number] | 04/07/19 | [phone] | | Indemn | | | MDCR | | 17-Pre | 4 | | ity | | | SUPPL | | sent | | | | + +--------+ +--------+ +---------+--------+ + +--------+ +--------+ + + | Guarantor Name | Accoun | Relation to | Date | Phone | Billing Address | | | t Type | Patient | of | | | | | | | | | | + +--------+ +--------+ + + | Zoltan Reece | Person | Self [birth year] | [address] | | | al/Fam | | 1930 | [phone] | [place] | | | [place] | | | 1 (Home) | [address] | + +--------+ +--------+ + + Advance Directives + + + + + | Type | Date Recorded | Patient | Explanation | | | | [employer]r [place]n | | + + + + + | Power of | | | | | Exhibition Carver | | | | + + + + + | Advance | | | | | Directive | | | | + + + + +
--- OUTSIDE RECORDS SUMMARY | ~2019-11-23 | XMS | Encounter Summary ---
Demographics + + + | Address | [address] | | | [place] [address] | + + + | Home Phone | | + + + | Preferred Language | Unknown | + + + | Marital Status | | + + + | Denominational Affiliation | NON | + + + | Race | White | + + + | Ethnic Group | Not or | + + + Author + + + | Author | [facility] | + + + | Organization | [facility] | + + + | Address | Unknown | + + + | Phone | Unavailable | + + + Support + + + + + | Name | Relationship | Address | Phone | + + + + + | Mariajose Reece | ECON | [address] | | | | [address] | | | | | [address] | | + + + + + Care Team Providers + +------+ + | Care Photographic Reproduction Technician Name | Role | Phone | [...] | | | Reconstructive | Savanah Hernandez Treg[place], | examination (Primary | | | | Services at [facility] | [place] [address] | Dx) | | | | [address] | [phone] | | | | | [facility] | | | | | | and Healing, | | | | | | Building 1, 5th | | | | | | Floor [facility] [place] | | | | | | [address] | | | | | | [phone] | | | +--------+---------+ + + + [...] take place on the hill at the [facility]: Surgeries scheduled in the [facility] (4 North): registration is located on the 4th floor of [facility] (Day Surgery). Surgeries scheduled in the [facility]: registration is located on the 9th floor. Surgeries scheduled in [facility]: registration is located on the 6th floor. Surgeries scheduled in the [facility]: registration is located i n the [facility] on the first floor. For surgeries scheduled to take place at the [facility]: registration is l ocated on the 4th [...] If you use specialized medical equipment at [facility], please check with your provider before bringing [...] Surgery Dept. of Otolaryngology/Head and Neck Surgery [facility] & Science [place] [email or web address] Milan Mortensen - 03/14/2010 2 :45 PM [...]
--- OUTSIDE RECORDS SUMMARY | ~2019-11-23 | XMS | Encounter Summary ---
Demographics + + + | Address | [address] | | | [place] [address] | + + + | Home Phone | | + + + | Preferred Language | Unknown | + + + | Marital Status | | + + + | Congregational Affiliation | NON | + + + [...] [place] | | | | | [address] | | + + + + + Care Team Providers + +------+ + | Care Fire Lookout Name | Role | Phone | + [...] Plastic | | Darrin Moura MD | [address] | | | | Surgery | | Keira | [place] | | | | | | Health ENT | [facility] | | | | | | [address] | [place], [place] | | | | | | Ave [address] | [address] | | | | | | [address], | Phone: | | | | | | [place] [address] | [phone] | | | | | | Phone: | Fax: | | | | | | [phone] | [phone] | | | | | | Fax: | | | | | | | [phone] | | +--------+--------+ + + + + [...] | | | Reconstructive | [address] [place], | of nose; Postop | | | | Services at [facility] | [place] [address] | check | | | | [address] | [phone] | | | | | [facility] | | | | | | and Healing, | | | | | | Building 1, 5th | | | | | | Floor [place], [place] | | | | | | [address] | | | | | | [phone] | | | +--------+---------+ + + + [...] 9:36 AM PDTClinic: Facial Plastic and Reconstructive [facility] Zoltan Reece is a 80 y.o. male [...] Dept. of Otolaryngology/Head and Neck Surgery [facility] & [facility] tel fax email [email or web address] Duane Milan - 07/06/2010 9 :02 AM [...]
--- OUTSIDE RECORDS SUMMARY | ~2019-11-23 | XMS | Encounter Summary ---
Demographics + + + | Address | [address] | | | [place] [address] | + + + | Home Phone | | + + + | Preferred Language | Unknown | + + + | Marital Status | | + + + | Bahai Affiliation | Unknown | + + + | Race | White | + + + | Ethnic Group | Not or | + + + Author + + + | Author | [facility] | | | and [place] | + + + | Organization | [facility] | | | and [...] Team Providers + +------+ + | Care Ladies' Locker Room Attendant Name | Role | Phone | + +------+ + | Varun Khalil MD | PCP | | + +------+ + Reason for Visit +--------+--------+ + | Reason | Onset | Comments | | | Date | | +--------+--------+ + | Other | 11/08/ | PROACTIVE SCREENING 11/09/2019 MM | | | 2020 | | +--------+--------+ + Encounter Details +--------+ + + + + | Date | Type | Department | Care Team | Description | +--------+ + + + + | 11/08/ | Telephone | [facility] | Jennifer Singleton, | Other (PROACTIVE | | 2019 | | INFECTIOUS DISEASE | Body Coverer | SCREENING 11/09/2019 | | | | [address] | | MM) | | | | [place], [place] | | | | | | [address] | | | | | | [phone] | | | +--------+ + + + [...] + + documented as of this encounter Miscellaneous Notes Telephone Encounter - Jennifer Singleton, Body Coverer - 11/09/2019 3:41 PM PDTProactive screening for upcoming office visit to help ensure the clinic environment remains a safe joanne ce to receive care. 1. Patient reports the following symptoms and/or exposure on the epidemic risk screen : o Fever greater than 100.4 F?: no o New onset (within the last 14 days) cough?: no o New onset (within the last 14 days) shortness of breath?: no o New onset (within the last 14 days) loss of taste or smell?: no o Close contact with someone who has been diagnosed with COVID-19?: no The patient reported no symptoms or exposure and proceeded with proactive screening process . 2. Have you or someone you are in close contact with been tested for COVID-19?: No. Okay to see patient in clinic per scheduling guidelines, proceeded to question #3 If YES, have the following three things happened? ? Has it been ten days since your symptoms first started?: YES ? Have you been fever free for 72 hours without taking fever reducing medications?: YES ? Have you experienced at least 3 days of improvement in your respiratory symptoms (e.g. co ugh, shortness of breath)?:YES Patient responded "yes" to bulleted questions 2-4 and visit will remain in-person as origin ally scheduled 3. Does the patient have MyChart Access?: No. Patient refused. 4. Is the patient allowed a visitor per policy?: no. If YES, ask the following questions to the VISITOR ? Does the visitor have any of the following? ? Have you or someone you are in close contact with been tested for COVID-19?: Please be aware that you will be asked these same questions when you arrive at the clinic. If you have any changes in your symptoms between now and your visit, please call us so we c an get you scheduled for an alternative visit before you arrive at the clinic. For your safety and the safety of others, we ask that if you are being seen in person at on e of our clinics you arrive wearing a mask. Hand washing is hart to keeping our clinic a safe place to receive care. While you are in ou r clinics you will be asked to perform hand washing at different intervals throughout your v isit. Jose mccormack in this encounter Plan of Treatment +--------+---------+ + + + | Date | Type | Specialty | Care Team | Description | +--------+---------+ + + + | 11/24/ | Office | Infectious Diseases | Doreen, | | | 2019 | Visit | | MD Nisa [address] | | | | | | [address] | | | | | | [place] [address] | | | | | | [phone] | | | | | | | | +--------+---------+ + + + documented as of this encounter Visit Diagnoses Not on filedocumented in this encounter
--- OUTSIDE RECORDS SUMMARY | ~2019-11-23 | XMS | Encounter Summary ---
Demographics + + + | Address | [address] | | | [place] [address] | + + + | Home Phone | | + + + | Preferred Language | Unknown | + + + | Marital Status | | + + + | Islam Affiliation | NON | + + + | Race | White | + + + | Ethnic Group | Not or | + + + Author + + + | Author | [facility] | + + + | Organization | [facility] | + + + | Address | Unknown | + + + | Phone | Unavailable | + + + Support + + + + + | Name | Relationship | Address | Phone | + + + + + | Mariajose Reece | ECON | [address] | | | | | [address] | | | | | [address] | | + + + + + Care Team Providers + +------+ + | Care Reel Blade Bender Furnace Tender Name | Role | Phone | + [...] | | | at Gene Huang | [facility] | | | | | [address] | [place] [address] | | | | | [address] | | | | | | Huang, [facility] | | | | | | [place], [place] | | | | | | [address] | | | | | | [phone] | | | +--------+ + + + [...] + + + +---------+ + + | FY-Ham-Jedtb | Take by mouth. | | 0 [...] | | | | | VAN ROSENTHAL ([id number]) | | | | | | on 03/18/2010 12:34:28 | | | | | | PM | | | | + + + + + + + + | Specimen | + + | | + + + + + | Narrative | Performed At | + + + | Please click | [facility] DEPT OF | | on view image for the detailed interpretation from [employer] results. | CARDIOLOGY | + + + + + + + + | Performing | Address | City/State/Zipcode | Phone Number | | Organization | | | | + + + + + | [facility] | [address] | [place], [place] | | | CARDIOLOGY | [address] | [address] | | + + + + + documented in this encounter Visit Diagnoses Not on filedocumented in this encounter
--- OUTSIDE RECORDS SUMMARY | ~2019-11-23 | XMS | Encounter Summary ---
Demographics + + + | Address | [address] | | | [place] [address] | + + + | Home Phone | | + + + | Preferred Language | Unknown | + + + | Marital Status | | + + + | Buddhist Affiliation | Unknown | + + + | Race | White | + + + | Ethnic Group | Not or | + + + Author + + + | Author | [facility] | | | and [place] | + + + | Organization | [facility] | | | [...] Team Providers + +------+ + | Care Fitness Floor Attendant Name | Role | Phone | + +------+ + | Varun Khalil MD | PCP | | + +------+ + Reason for Visit +---------+--------+ + | Reason | Onset | Comments | | | Date | | +---------+--------+ + | Results | 11/16/ | wound culture results | | | 2020 | | +---------+--------+ + Encounter Details +--------+ + + + + | Date | Type | Department | Care Team | Description | +--------+ + + + + | 11/16/ | Telephone | [facility] | Eileen Green | Results (wound | | 2020 | | INFECTIOUS DISEASE | L RN | culture results) | | | | [address] | | | | | | [place] | | | | | | [address] | | | | | | [phone] | | | +--------+ + + + [...] this encounter Miscellaneous Notes Telephone Encounter - Eileen Green RN - 11/17/2019 5:20 PM PDTFormatting of this no te might be different from the original. Zoltan DÍAZ ID, left message on DR Doreen CRAVEN extension, request call back regarding wound culture collected at office visit 11/10/19. Zoltan requests a call back regarding this. Reviewed Upshot id progress notes and wound culture. Advised wound culture shows normal skin jimi, advised patient to keep follow up appt as scheduled 11/25/19. Patient states agreement . NO further questions/concerns at this time. Zoltan Reece ( ) Culture, Wound, Superficial [[id number]] (Order #: [id number]) Qty: 1 Culture, Wound, Superficial Order: [id number] Status: Final result Visible to patient: No (not released) Next appt: 11/25/2019 at 03:40 PM in Infectious Diseases (Nisa Logan MD) Dx: History of methicillin resistant stap... Specimen Information: Leg, Lower, Right; Body Fluid Component 7d ago RESULT 1+ NORMAL SKIN JIMI ISOLATED RESULT Testing performed at [facility];[address] [place] [address];[place] [address] Comment: Testing performed at [facility], [address] [place] [address], [place] [address] Resulting Agency [facility] Specimen Collected: 11/10/19 21:09 Last Resulted: 11/12/19 12:29 Lab Flowsheet Order Detail s View Encounter Lab and Collection Details Routing Result History Reviewed by Nisa Logan MD 11/12/2019 14:37 Nisa Logan MD 11/12/2019 00:07 Collection Information documented in this encounter Plan of Treatment +--------+---------+ + + + | Date | Type | Specialty | Care Team | Description | +--------+---------+ + + + | 11/24/ | Office | Infectious Diseases | Doreen, | | | 2019 | Visit | | MD [address] | | | | | | [address] | | | | | | [place] [address] | | | | | | [phone] | | | | | | | | +--------+---------+ + + + documented as of this encounter Visit Diagnoses Not on filedocumented in this encounter"
--- OUTSIDE RECORDS SUMMARY | ~2019-11-23 | XMS | Encounter Summary ---
Demographics + + + | Address | [address] | | | [place] [address] | + + + | Home Phone | | + + + | Preferred Language | Unknown | + + + | Marital Status | | + + + | Confucianist Affiliation | NON | + + + [...] [address] [place] | | | | | [address] | | + + + + + Care Team Providers + +------+ + | Care Contract Technician Name | Role | Phone | [...] | | | at Gene Huang | [facility] | | | | | [address] | [place] [address] | | | | | [address] | | | | | | Huang, [facility] floor | | | | | | [place], [place] | | | | | | [address] | | | | | | [phone] | | | +--------+ + + + [...] + + + +---------+ + + | AA-Nwn-Myiia | Take by mouth. | | 0 [...] | | | | | VAN ROSENTHAL (1798) | | | | | | on 03/18/2010 12:34:28 | | | | | | PM | | | | + + + + + + + + | Specimen | + + | | + + + + + | Narrative | Performed At | + + + | Please click | [facility]PT OF | | on view image for the detailed interpretation from [employer] results. | CARDIOLOGY | + + + + + + + + | Performing | Address | City/State/Zipcode | Phone Number | | Organization | | | | + + + + + | [facility] | [address] | [place], [place] | | | CARDIOLOGY | [address] | [address] | | + + + + + documented in this encounter Visit Diagnoses Not on filedocumented in this encounter
--- OUTSIDE RECORDS SUMMARY | ~2019-11-23 | XMS | Encounter Summary ---
Demographics + + + | Address | [address] | | | [place] [address] | + + + | Home Phone | | + + + | Preferred Language | Unknown | + + + | Marital Status | | + + + | Spiritism Affiliation | NON | + + + | Race | White | + + + | Ethnic Group | Not or | + + + Author + + + | Author | [facility] | + + + | Organization | [facility] | + + + | Address | Unknown | + + + | Phone | Unavailable | + + + Support + + + + + | Name | Relationship | Address | Phone | + + + + + | Mariajose Reece | ECON | [address] | | | | | [address] | | | | | [address] | | + + + + + Care Team Providers + +------+ + | Care Labor Relations Specialist Name | Role | Phone | [...] | | | | [address] | [place], [place] | | | | | | [address] | [address] | | | | | | [address], | Phone: | | | | | | [place] [address] | [phone] | | | | | | Phone: | Fax: | | | | | | [phone] | [phone] | | | | | | Fax: | | | | | | | [phone] | | +--------+--------+ + + + + [...] | | | | Reconstructive | [facility], | acquired; Deflected | | | | Services at [facility] | [place] [address] | nasal septum | | | | [address] | [phone] | | | | | [facility] | | | | | | and Healing, | | | | | | Building [address], 5th | | | | | | Floor [place], [place] | | | | | | [address] | | | | | | [phone] | | | +--------+---------+ + + + [...] This patient is referred by SHERIDAN HOFFMANN [address] [place] [address]. 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 Bilateral [...] Surgery Dept. of Otolaryngology/Head and Neck Surgery On [facility] Of [facility] [place] tel fax email [email or web address] ilan Caraballo - 01/15/2010 10 :18 AM PDT Additional staff support provided to the patient during this encounter included: Health maintanance reviewed and documented. Medication(s) reviewed this encounter: Outpatient encounter prescriptions as of 01/15/2010 Medication Sig Dispense Refill aspirin 325 mg Oral Tablet Take 325 mg by mouth once daily. clopidogrel (PLAVIX) 75 mg Oral Tablet Take 75 mg by mouth once daily. YN-Ltk-Vbigk Acid-Lutein (CENTRUM SILVER) 500-250 mcg Oral Tablet, [...]
--- OUTSIDE RECORDS SUMMARY | ~2019-11-23 | XMS | Encounter Summary ---
Demographics + + + | Address | [address] | | | [place] [address] | + + + | Home Phone [...] + + | Author | [facility] | + + + | Organization | 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 OTHER PRODUCTS WHICH MAY PROMOTE BLEEDING Vitamin E, Gingko Biloba, Marine Fatty Acids, Josephine-3 Fish Oil Supplements Important Guidelines Please do [...] perfume, lotions or powder. Remove any nail hebrew from at least one fingernail. Do not [...] ations. Check in locations [facility] [phone], [facility] and [facility] Er, fourth floor Check-in times for Hospital Admissions are not available until the day prior to surgery. So meone from your surgeon's office or the hospital will contact you with your check in time. I f you do not hear from anyone by 3:00 PM please call your surgeons' office for [id number] . Going Home Your surgeon will decide [...] it is after office hours, call the [facility] special warfare operator at [phone] and ask them to page your doc [...] additional test results under "Media" tab in [employer]. I spent 20 minutes in the care of this patient, > 50% of which was spent in counseling and coordination of care. All patient's questions clarified and answered satisfactorily. Vida Thurman, MSN, ACNP- Nurse Practitioner Pre-operative Medicine Clinic [facility] [place], Mail code : [facility] [address] [place] [phone] (DIRECT LINE) (FAX) 2006 ACC/ AHA Perioperative Guidelines 1. Need for emergency noncardiac surgery? b. No -> Proceed to next step. 2. Active Cardiac Conditions? These conditions mandate further investigation and manageme nt. A. Acute NC within 7 days: no B. Unstable angina/Recent NC (7- 30 days): no C. Decompensated CHF: [...] consider noninvasive clay ting if it will belt changer. 3 or more risk factors AND high risk surgery- consider testing if it will belt changer . documented in this enco unter [...] | + +--------+ + + + | IA COLLECTION VENOUS | Routin | 03/14/2010 | [...] | | | | | VAN ROSENTHAL (7403) | | | | | | on [...] view image for the detailed interpretation from [employer] results. | CARDIOLOGY | + + + + + + + + | Performing | Address | City/State/Zipcode | Phone Number | | Organization | | | | + + + + + | [facility] | [address] | [place], [place] | | | CARDIOLOGY | [address] | [address] | | + + + + + [...] | + + + + + | [facility] | [address] | [place] [address] | | | PATHOLOGY | [address] [...] | 27.7Comment: | 26.0 - 36.0 | [facility] | | | | APTT Therapeutic Range [...] | + + + + + | [facility] DEPARTMENT OF | [address] | [place] [address] | | | PATHOLOGY | [address] [...] + | [facility] DEPARTMENT OF | [address] | [place] [address] | | | PATHOLOGY | [address] [...]
--- OUTSIDE RECORDS SUMMARY | ~2019-11-23 | XMS | Encounter Summary ---
Demographics + + + | Address | [address] | | | [place] [address] | + + + | Home Phone | | + + + | Preferred Language | Unknown | + + + | Marital Status | | + + + | Taoism Affiliation | Unknown | + + + | Race | White | + + + | Ethnic Group | Not or | + + + Author + + + | Author | [facility] | | | and [place] | + + + | Organization | [facility] | | | [...] Team Providers + +------+ + | Care Tenon Machine Operator Name | Role | Phone | + +------+ + | Varun Khalil MD | PCP | | + +------+ + Reason for Visit + + + | Reason | Comments | + + + | New Patient | referred by Dr. Khalil for MRSA | + + + Evaluate & Treat (Routine) + +--------+ + + + + | Status | Reason | Specialty | Diagnoses / | Referred By | Referred To | | | | | Procedures | Contact | Contact | + +--------+ + + + + | Authorized | | Infectious | Diagnoses | Simran | Michael | | | | Diseases | Methicillin | Varun Williamson, | Infectious | | | | | resistant | MD [address] | [address] | | | | | Staphylococc | DEVORA GALAVIZ | [address] | | | | | us aureus | [place], | [place], [place] | | | | | infection, | [place] [address] | [address] | | | | | unspecified | Phone: | Phone: | | | | | site | [phone] | [phone] | | | | | | Fax: | Fax: | | | | | | [phone] | [phone] | + +--------+ + + + + Encounter Details +--------+---------+ + + + | Date | Type | Department | Care Team | Description | +--------+---------+ + + + | 11/09/ | Office | [facility] | [place], | Skin lesions | | 2020 | Visit | INFECTIOUS DISEASE | MD [address] | (Primary Dx); | | | | [address] | [address] | History of | | | | [place], [place] | [place] [address] | methicillin | | | | [address] | [phone] | resistant | | | | [phone] | | staphylococcus | | | | | | aureus (MRSA); | | | | | | History of insect | | | | | | bite | +--------+---------+ + + + Social History [...] in this encounter Patient Instructions Patient Instructions Nisa Logan MD - 11/10/2019 1:40 PM PDT1. Zyvox 600 mg twice a day for 10 days 2. We will update you on culture report 3. Use chlorhexidine (Betasept or Hibiclens) for showering x 5 days documented in this encounter Progress Notes Nisa Logan MD - 11/10/2019 1:40 PM PDT Subjective: Patient ID: 89 year old male HPI The patient has been referred by Dr. 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 Past medical history, medications, allergies, social and family histories are recorded in E P[facility], reviewed and updated as necessary. History is obtained from the patient and review of medical records forwarded from [facility]. 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 He sees Dermatology once a year for actinic keratosis. He had histor y of shingles (R abdominal distribution) and had zoster vaccine. He reportedly had his first MRSA skin infection in Aug, 2017 after he had hernia surgery (sammie meyer with mesh repair on 06/11/2017). He developed rash at his right thigh, diagnosed to be cellulitis, that had been treated with trimethoprim/sulfamethoxazole DS twice daily for 10 d ays. When he was seen on 10/31, he was described to have a small linear infection that may h ave developed from an excoriation of his ankle. He was described to have no fever or chills . On 11/03, he called his primary care transitions nurse about pustular lesions at his left foot despi te using topical mupirocin. He was placed on clindamycin 300 mg p.o. every 8 hours for 12 d ays. Despite taking clindamycin and using topical mupirocin, thus the ID referral. Patient states he had bronchitis around June, negative for COVID-19. He currently denies upper or lower respiratory symptoms. He has been afebrile with no chills or sweats. He lottie es sick contacts. In early October, he was in his garden when he felt "an insect bite" at his right thigh. He f elt an immediate sting then sensation of "fire ants". Later that evening, he had itching an d noted a red patch that increased in size. When he took TMP-SMX, there had been improvemen t of the skin lesion. Off TMP-SMX, he noted red spots at his toes. He described this as starting off as red spot s then became glossy blisters with "yellow oozing". He denies pain at the site. He has bee n applying topical mupirocin. He has been on a week of oral clindamycin -- no GI side effec ts. He has also noted lesions at his left face, lower abdomen, buttock and leg. Review of Systems All other systems reviewed and are negative, unless specified above Objective: Physical Exam Vital signs reviewed General: Not in acute physical distress HEENT: Normocephalic. Anicteric sclerae, no conjunctival lesions. No nasal mucosal lesions . No oral thrush or ulcers. No pharyngeal hyperemia or exudates. Supple neck with no cerv ical lymphadenopathy Lungs: No adventitious breath sounds CV: Sternal scar intact. Normal rate, regular rhythm Lungs: No adventitious breath sounds Abdomen: No distention. Positive bowel sounds. Soft, no tenderness. SKIN: Solitary papular lesion to the left of his nose. Few scattered erythematous papular lesion at his lower abdomen. Solitary healing papule at the buttock. AT distal right leg, small clear vesicles on erythematous base noted with no pus; no tenderness or induration - not dermatomal in distribution. Dorsal right 3rd/4th toes with reddish/brown lesions, some crusting, no drainage, no vesicl es - mupirocin applied. At the dorsal left second toe, there is a reddish brown lesion with minimal crusting, no vesicles, drainage, induration or tenderness to palpation No lymphangitic streaking. 09/28/2019 WBC 4500, 45% lymphocytes, 21% monocytes, 30% neutrophils, hemoglobin 15.4/hematocrit 35.3 platelet count 183,000 Glucose 125, BUN 20, creatinine 1.77, albumin 4.1, AST 20, ALT 22 hemoglobin A1c 5.4 No microbiology data available Assessment: 1. Skin lesions Culture, Wound, Superficial 2. History of methicillin resistant staphylococcus aureus (MRSA) Culture, Wound, Superfici al 3. History of insect bite Although patient has history of staphylococcal infection, lesions at the distal right leg a nd how the patient described toe lesions are suggestive of streptococcal etiology. He has n o systemic symptoms of infection. Culture specimen obtained from the small vesicles at the distal right leg. We discussed about expanding antibiotic Rx to linezolid 600 mg po bid x 10 days for Gram po sitive coverage (will have coverage for MRSA and Strep). Potential antibiotic side effects h ad been discussed with the patient. Plan: 1. Zyvox 600 mg twice a day for 10 days 2. Patient will be updated on culture report 3. Use chlorhexidine (Betasept or Hibiclens) for showering x 5 days *Addendum: RESULT 1+ NORMAL SKIN ARLENE ISOLATED RESULT Testing performed at [facility];[address] [place] [address];[place] [address] Comment: Testing performed at [facility], [address] [place] [address], [place] [address] Resulting Agency [facility] Specimen Collected: 11/10/19 21:09 Last Resulted: 11/12/19 12:29 documented in this encounter Plan of Treatment +--------+---------+ + + + | Date | Type | Specialty | Care Team | Description | +--------+---------+ + + + | 11/24/ | Office | Infectious Diseases | [facility], | | | 2019 | Visit | | MD [address] | | | | | | [address] | | | | | | [place] [address] | | | | | | [phone] | | | | | | | | +--------+---------+ + + + documented as of this encounter Results Culture, Wound, Superficial (11/10/2019 9:09 PM [...] | | REFERENCE | | | | TC;[address] [facility] | | LAB | | | | Blvd;[place] | | [facility] | | | | [id number]: Testing | | LABORATORY | | | | performed at [facility], [address] | | [address], | | | | | | [place] [address] | | | | + + + [...] + + + | REFERENCE LAB | [address] [facility] [address] | [place] | [phone] | | [facility] | Blvd[address] | [address] | | | LABORATORY | | | | + + + + + | REFERENCE LAB | [address] | [place], [place] | | | [facility] | [address]. | [address] | | | LABORATORY | | | | + + + + + documented in this encounter Visit Diagnoses + + | Diagnosis | + + | Skin lesions - Primary | + + | History of methicillin resistant staphylococcus aureus (MRSA) Personal history of | | Methicillin resistant Staphylococcus aureus | + + | History of insect bite Personal history of other injury | + + documented in this encounter
--- OUTSIDE RECORDS SUMMARY | ~2019-11-23 | XMS | Encounter Summary ---
Demographics + + + | Address | [address] | | | [place] [address] | + + + | Home Phone | | + + + | Preferred Language | Unknown | + + + | Marital Status | | + + + | Rastafari Affiliation | NON | + + + | Race | White | + + + | Ethnic Group | Not or | + + + Author + + + | Author | [facility] | + + + | Organization | [facility] | + + + | Address | Unknown | + + + | Phone | Unavailable | + + + Support + + + + + | Name | Relationship | Address | Phone | + + + + + | Mariajose Reece | ECON | [address] | | | | | [address] | | | | | [address] | | + + + + + Care Team Providers + +------+ + | Care Canal Driver Name | Role | Phone | + [...] | | | Reconstructive | [place], | of nose; Postop | | | | Services at [facility] | [place] [address] | check | | | | [address] | [phone] | | | | | [facility] | | | | | | and Healing, | | | | | | Building [address], | | | | | | Floor [place], [place] | | | | | | [address] | | | | | | [phone] | | | +--------+---------+ + + + [...] returns for followup one day out from [facility] via external approach with left ear composite [...] Surgery Dept. of Otolaryngology/Head and Neck Surgery [facility] tel fax email [email or web address] documented in this encounte r Plan [...]
--- OUTSIDE RECORDS SUMMARY | ~2019-11-23 | XMS | Encounter Summary ---
Demographics + + + | Address | [address] | | | [place] [address] | + + + | Home Phone | | + + + | Preferred Language | Unknown | + + + | Marital Status | | + + + | Druze Affiliation | NON | + + + | Race | White | + + + | Ethnic Group | Not or | + + + Author + + + | Author | [facility] | + + + | Organization | [facility] | + + + | Address | Unknown | + + + | Phone | Unavailable | + + + Support + + + + + | Name | Relationship | Address | Phone | + + + + + | Mariajose Reece | ECON | [address] | | | | | [address] | | | | | [address] | | + + + + + Care Team Providers + +------+ + | Care Plating Technician Name | Role | Phone | [...] | | [address] | [place], [place] | diseases of nasal | | | | [address] | [address] | cavity and sinuses; | | | | Mailcode: CH4S | [phone] | 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 OTHER PRODUCTS WHICH MAY PROMOTE BLEEDING Vitamin E, Gingko Biloba, Marine Fatty Acids, [place]rata-3 Fish Oil Supplements Important Guidelines Please do [...] perfume, lotions or powder. Remove any nail amharic from at least one fingernail. Do not [...] ations. Check in locations [facility] [phone], [facility] and [facility], fourth floor Check-in times for Hospital Admissions are not available until the day prior to surgery. So meone from your surgeon's office or the hospital will contact you with your check in time. I f you do not hear from anyone by 3:00 PM please call your surgeons' office for [id number] . Going Home Your surgeon will decide when you are medically ready to go home. If you are released to go home on the same day as your procedure/surgery please note the following: You will not be competent to drive and will require someone else to transport y ou home on the day of discharge since pain medications and physical activity restrictions li amihsa your ability to drive safely. It is [...] it is after office hours, call the [facility] liquid hydrogen plant operator at [phone] and ask them to page your doc [...] additional test results under "Media" tab in [facility]. I spent 20 minutes in the care of this patient, > 50% of which was spent in counseling and coordination of care. All patient's questions clarified and answered satisfactorily. Vida Thurman, MSN, ACNP- Nurse Practitioner Pre-operative Medicine Clinic [facility] [place], Mail code : [facility] [address] [place] [phone] (DIRECT LINE) (FAX) 2006 ACC/ AHA Perioperative Guidelines 1. Need for emergency noncardiac surgery? b. No -> Proceed to next step. 2. Active Cardiac Conditions? These conditions mandate further investigation and manageme nt. A. Acute NE within 7 days: no B. Unstable angina/Recent NE (7- 30 days): no C. Decompensated CHF: [...] consider noninvasive clay ting if it will change management consultant. 3 or more risk factors AND high risk surgery- consider testing if it will change management consultant . documented in this enco unter Plan [...] | + +--------+ + + + | [place] COLLECTION VENOUS | Routin | 03/14/2010 | [...] | | | | | [place] ([id number]) | | | | | | on [...] view image for the detailed interpretation from [facility] results. | CARDIOLOGY | + + + + + + + + | Performing | Address | City/State/Zipcode | Phone Number | | Organization | | | | + + + + + | [facility] DEPT OF | [address] | [place], [place] | | | CARDIOLOGY | [address] | [address] | | + + + + + [...] | + + + + + | [facility] | [address] | [place] [address] | | | PATHOLOGY | [address] [...] | 27.7Comment: | 26.0 - 36.0 | [facility] | | | | APTT Therapeutic [...] | + + + + + | [facility] DEPARTMENT OF | [address] | [place] [address] | | | PATHOLOGY | [address] [...] DEPARTMENT OF | [address] | [place] [address] | | | PATHOLOGY | [address] [...]
--- OUTSIDE RECORDS SUMMARY | ~2019-11-23 | XMS | Encounter Summary ---
Demographics + + + | Address | [address] | | | [place] [address] | + + + | Home Phone | | + + + | Preferred Language | Unknown | + + + | Marital Status | | + + + | Worship Affiliation | NON | + + + | Race | White | + + + | Ethnic Group | Not or | + + + Author + + + | Author | [facility] | + + + | Organization | [facility] | + + + | Address | Unknown | + + + | Phone | Unavailable | + + + Support + + + + + | Name | Relationship | Address | Phone | + + + + + | Mariajose Reece | ECON | [address] | | | | [address] | | | | | [address] | | + + + + + Care Team Providers + +------+ + | Care Baggage And Mail Agent Name | Role | Phone | + [...]
--- OUTSIDE RECORDS SUMMARY | ~2019-11-23 | XMS | Encounter Summary ---
Demographics + + + | Address | [address] | | | [place] [address] | + + + | Home Phone | | + + + | Preferred Language | Unknown | + + + | Marital Status | | + + + | Taoist Affiliation | Unknown | + + + | Race | White | + + + | Ethnic Group | Not or | + + + Author + + + | Author | [facility] | | | and [place] | + + + | Organization | [facility] | | | and [place] | + + + | Address | Unknown | + + + | Phone | Unavailable | + + + Support + + +---------+ + | Name | Relationship | Address | Phone | + + +---------+ + | Toshia Bershaniqua | ECON | Unknown | | + + +---------+ + Care Team Providers + +------+ + | Care Teletype Mechanic Name | Role | Phone | + +------+ + | Varun Khalil MD | PCP | | + +------+ + Encounter Details +--------+ + + + + | Date | Type | Department | Care Team | Description | +--------+ + + + + | 11/09/ | Orders Only | [facility] | Yvonne Blair, | Skin lesions; | | 2019 | | [address] | Manager Of Software Development | History of | | | | [place], [place] | | methicillin | | | | [address] | | resistant | | | | [phone] | | staphylococcus | | | | | | aureus (MRSA) | +--------+ + + + + Social [...] NEELY | | | | | | [place] [address] | | | | | | [phone] | | | | | | | [...] + + documented in this encounter Results Culture, Wound, Superficial (11/10/2019 [...] REFERENCE | | | | TC;[address] [facility] | | LAB | | | | Blvd;[place] | | [facility] | | | | [id number]: Testing | | LABORATORY | | | | performed at [facility], [address] | | | | | | [address], | | | | | | [place] [address] | | | | + + + [...] + + + | REFERENCE LAB | [address] [place] [address] | [place], [place] | [phone] | | [facility] | Blvd. | [address] | | | LABORATORY | | | | + + + + + | REFERENCE LAB | [address] [place] [address] | [place], [place] | | | [facility] | Blvd. | [address] | | | LABORATORY | | | | + + + + + documented in this encounter Visit Diagnoses + + | Diagnosis | + + | Skin lesions | + + | History of methicillin resistant staphylococcus aureus (MRSA) Personal history of | | Methicillin resistant Staphylococcus aureus | + + documented in this encounter"
--- OUTSIDE RECORDS SUMMARY | ~2019-11-23 | XMS | Encounter Summary ---
Demographics + + + | Address | [address] | | | [place] [address] | + + + | Home Phone | | + + + | Preferred Language | Unknown | + + + | Marital Status | | + + + | Buddhism Affiliation | NON | + + + | Race | White | + + + | Ethnic Group | Not or | + + + Author + + + | Author | [facility] | + + + | Organization | [facility] | + + + | Address | Unknown | + + + | Phone | Unavailable | + + + Support + + + + + | Name | Relationship | Address | Phone | + + + + + | Mariajose Reece | ECON | [address] | | | | [address] | | | | | [address] | | + + + + + Care Team Providers + +------+ + | Care Operating Room Scheduler Name | Role | Phone | + +------+ + | Kike Velazquez MD | PCP | | + +------+ + Encounter Details +--------+ + + + + | Date | Type | Department | Care Team | Description | +--------+ + + + + | 06/20/ | Hospital | Dermatopathology | | | | 2017 | Encounter | [address] | | | | | | Mailcode: CH16D | | | | | | [facility] | | | | | | and Healing, | | | | | | Building , | | | | | | Floor [place], [place] | | | | | | [address] | | | | | | [phone] | | | +--------+ + + + [...] + + + +---------+ + + | AS-Uih-Wfjov | Take by mouth. | | 0 [...] excisionof | | | | | | boqab-ykv-xzvng skin, | | | | | | [id number]. 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
--- OUTSIDE RECORDS SUMMARY | ~2019-11-23 | XMS | Encounter Summary ---
Demographics + + + | Address | [address] | | | [place] [address] | + + + | Home Phone | | + + + | Preferred Language | Unknown | + + + | Marital Status | | + + + | Sabianist Affiliation | NON | + + + | Race | White | + + + | Ethnic Group | Not or | + + + Author + + + | Author | [facility] | + + + | Organization | [facility] | + + + | Address | Unknown | + + + | Phone | Unavailable | + + + Support + + + + + | Name | Relationship | Address | Phone | + + + + + | Mariajose Reece | ECON | [address] | | | | [address] | | | | | [address] | | + + + + + Care Team Providers + +------+ + | Care Needle Felt Making Machine Operator Name | Role | Phone [...]
--- OUTSIDE RECORDS SUMMARY | ~2019-11-23 | XMS | Encounter Summary ---
Demographics + + + | Address | [address] | | | [place] [address] | + + + | Home Phone | | + + + | Preferred Language | Unknown | + + + | Marital Status | | + + + | Moravian Affiliation | Unknown | + + + | Race | White | + + + | Ethnic Group | Not or | + + + Author + + + | Author | [facility] | | | and [place] | + + + | Organization | [facility] | | | [...] Team Providers + +------+ + | Care Toilet Products Molder Name | Role | Phone | [...] | | | | [place] | [phone] | | | | | [address] | | | | | | [phone] | | | +--------+ + + + [...] | | | | | [place] [address] | | | | | | [phone] | | | | | | | | +--------+---------+ + + + documented as of this encounter Visit Diagnoses Not on filedocumented in this encounter"
--- OUTSIDE RECORDS SUMMARY | ~2019-11-23 | XMS | Encounter Summary ---
Demographics + + + | Address | [address] | | | [place] [address] | + + + | Home Phone [...] [address] | | | | | [address] | | + + + + + Care Team Providers + +------+ + | Care Raw Stock Machine Loader Name | Role | Phone | + +------+ + | Kike Velazquez MD | PCP | | + +------+ + Encounter Details +--------+ + + + + | Date | Type | Department | Care Team | Description | +--------+ + + + + | 06/20/ | Hospital | Dermatopathology | | | | 2017 | Encounter | [address] | | | | | | Mailcode: CH16D | | | | | | [facility] | | | | | | and Healing, | | | | | | Building , | | | | | | Floor [place], [place] | | | | | | [address] | | | | | | [phone] | | | +--------+ + + + [...] + + + +---------+ + + | HD-Moy-Mjetz | Take by mouth. | | 0 [...] excisionof | | | | | | dbxpe-ynb-imgmn skin, | | | | | | [id number]. 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
--- OUTSIDE RECORDS SUMMARY | ~2019-11-23 | XMS | Encounter Summary ---
Demographics + + + | Address | [address] | | | [place] [address] | + + + | Home Phone | | + + + | Preferred Language | Unknown | + + + | Marital Status | | + + + | Druze Affiliation | Unknown | + + + | Race | White | + + + | Ethnic Group | Not or | + + + Author + + + | Author | [facility] | | | and [place] | + + + | Organization | [facility] | | | [...] Team Providers + +------+ + | Care Filament Shaper Name | Role | Phone | + +------+ + PCP | Unavailable | + +------+ + Encounter Details +--------+ + + + + | Date | Type | Department | Care Team | Description | +--------+ + + + + | 09/16/ | [facility] | [facility] | | | | 2000 | Encounter | MED CTR GENERIC OP | | | | | | CONV DEPT [address] | | | | | | [place], | | | | | | [place] [address] | | | | | | [phone] | | | +--------+ + + + [...] | | | | | [place] [address] | | | | | | [phone] | | | | | | | | +--------+---------+ + + + documented as of this encounter Visit Diagnoses Not on filedocumented in this encounter"
--- OUTSIDE RECORDS SUMMARY | ~2019-11-23 | XMS | Encounter Summary ---
Demographics + + + | Address | [address] | | | [place] [address] | + + + | Home Phone | | + + + | Preferred Language | Unknown | + + + | Marital Status | | + + + | Anabaptist Affiliation | NON | + + + | Race | White | + + + | Ethnic Group | Not or | + + + Author + + + | Author | [facility] | + + + | Organization | [facility] | + + + | Address | Unknown | + + + | Phone | Unavailable | + + + Support + + + + + | Name | Relationship | Address | Phone | + + + + + | Mariajose Reece | ECON | [address] | | | | [address] | | | | | [address] | | + + + + + Care Team Providers + +------+ + | Care Continuity Tester Name | Role | Phone | [...] | | | | [address] | [place], [place] | | | | | | [address] | [address] | | | | | | [address], | Phone: | | | | | | [place] [address] | [phone] | | | | | | Phone: | Fax: | | | | | | [phone] | [phone] | | | | | | Fax: | | | | | | | [phone] | | +--------+--------+ + + + + [...] | | | | 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 Patient indicates he is not able to [...] by mouth once daily., Disp: , Rfl: QC-Dip-Tkzmg Acid-Lutein (CENTRUM SILVER) 500-250 mcg Oral Tablet, [...] caudal septal deviation to the left side, charging operator ior deviates right along the floor. [...] Surgery Dept. of Otolaryngology/Head and Neck Surgery [facility] [place] tel fax email [email or web address] Caraballo - 01/15/2010 10 :18 [...] Take 75 mg by mouth once daily. IU-Ors-Ihbio Acid-Lutein (CENTRUM SILVER) 500-250 mcg Oral Tablet, [...]
== END 2019-11-23 11:30 | disposition home or self-care (01) ==
LOC: ED 11:06
DX: S61.211A Laceration without foreign body of left index finger without damage to nail, initial encounter (principal); W26.0XXA Contact with knife, initial encounter

== ENCOUNTER 2020-08-31 11:00 | Day surgery (SDC) | payer MEDICARE, OTHER ==
[2020-08-31] MEDS ORDERED: ADULT ASPIRIN R81 MG PO (11:30)
[2020-08-31] MEDS ORDERED: VITAMIN D325 MC2 PO (11:33)
[2020-08-31] MEDS ORDERED: OMEPRAZOLE20 MG PO (11:36)
[2020-08-31] MEDS ORDERED: CITRUCEL479 GM PO (11:38)
--- NOTE | 2020-08-31 12:50 | NUR ---
08/31/20 1250 [address] Azul 1245-PATIENT ARRIVED TO PACU ON 2L NC RR EVEN LAYING PRONE. BANDAID CDI TO RIGHT BACK. IVF INFUSING. PATIENT REACTIVE TO VERBAL STIMULI OPENING EYES DENIES PAIN OR NAUSEA DOZES BACK TO SLEEP.
--- NOTE | 2020-09-13 13:00 | PATH ---
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 Peripheral blood: - Monocytosis. B. Bone marrow aspirate smears, clot section, and core biopsy: - Hypercellular bone marrow with increased number of monocytes. - Minimal dyshematopoiesis. 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 - Negative for bone marrow metastatic tumor or infiltrative process. - Please see diagnostic comment. DIAGNOSTIC COMMENT: In summary, the bone marrow is hypercellular with an increased number of monocytes present. By morphology no significant dyshematopoiesis is present mostly limited to mild megakaryopoiesis and hypogranulation of myeloid precursors. Clinical concern for chronic myelomonocytic leukemia is noted. 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 However, clinical correlation of persistent monocytosis and to rule out reactive causes for monocytosis is required. Also, correlation with pending BCR-ABL by FISH, karyotype analysis and molecular study for ERA-2 will be helpful for further classification of disease entity. This case has been reviewed and dictated by Rio Lake M.D.FACP, board certified hematopathologist. NA:vlg:C2NR PERIPHERAL BLOOD: HEMOGRAM ([facility]; 08/31/2020): WBCs 5.3 K/uL, RBCs 5.89 K/uL, HGB 17.3 g/dL, HCT 50.9%, MCV 86.4 f/L, RDW 14.7%, MCHC 34 g/dL, PLT 217 K/uL. DIFFERENTIAL (manual): 42% neutrophils, 32% lymphocytes, 22% monocytes, 2.0% PATIENT NAME: ARTUR VENCES PATHOLOGY DATE OF : 34 REPORT #: [id number] PHYSICIAN: SANCHEZ PATHOLOGY PCP: ERICA FOSTER MD REPORT IS CONFIDENTIAL AND NOT TO BE RELEASED WITHOUT AUTHORIZATION [facility] [address], [place] [address] Signed eosinophils, 2.0% basophils, and 1.166 K/uL absolute monocytes count. Review of peripheral blood smear and CBC data demonstrate that the RBCs are increased in number with an increase in hematocrit noted. There is no Rouleaux formation identified. No aggregation is present. The WBCs are normal in number with monocytosis noted. The neutrophils show unremarkable morphology. No blasts are seen. The monocytes show unremarkable morphology. The platelets are normal in number with occasional large platelets seen. BONE MARROW: BONE MARROW CORE BIOPSY, ASPIRATE SMEARS: The bone marrow aspirate smears are adequately cellular for evaluation. Trilineage hematopoiesis is present with progressive ordinary maturation. There is no increased number of blasts identified. There is no definite dyshematopoiesis identified. The myeloid precursors show hypogranulation. An increased number of monocytes is noted, estimated up to 25% of the marrow cellularity. The monocytes show mostly mature unremarkable morphology. The megakaryocytes are scattered and appear normal in number and morphology. BONE MARROW DIFFERENTIAL (300 CELLS): 2% blasts, 3% promyelocytes, 2% myelocytes, 25% segmented neutrophils, 10% lymphocytes, 25% monocytes, 5% eosinophils, 2% plasma cells, 26% erythroid precursors. BONE MARROW CORE BIOPSY AND CLOT SECTION: The bone marrow core biopsy demonstrates hypercellular bone marrow for age with an averaging cellularity of 80%. Trilineage hematopoiesis is present with progressive ordinary maturation. There are no lymphoid aggregates, granulomas, or metastatic tumor cells present. No aggregates of immature cells are seen. The megakaryocytes are scattered and appear increased in number with many small micro-megakaryocytes seen. The clot section shows similar findings. SPECIAL STAINS are performed with appropriately reactive control and show the following results: - Iron (aspirate smear): Increased storage iron, negative for ringed sideroblasts. - Iron (clot section, block B): Storage iron present, negative for ringed sideroblasts. - Reticulin stain (core biopsy, block A): Moderate increase in bone marrow reticulin fibrosis (grade 2/3). IMMUNOHISTOCHEMICAL STAINS are performed on block (A1) (with appropriately reactive control) and show the following results: PATIENT NAME: ARTUR VENCES PATHOLOGY DATE OF : 34 REPORT #: [id number] PHYSICIAN: SANCHEZ PATHOLOGY PCP: ERICA FOSTER MD REPORT IS CONFIDENTIAL AND NOT TO BE RELEASED WITHOUT AUTHORIZATION [facility] [address] [place] [id number] Signed - CD34: Highlights scattered positive cells with no significant increase in blasts noted. - CD117: Highlights scattered positive cells with no significant increase in blasts noted. - MPO: Highlights myeloid precursors with abnormal pattern of distribution. - CD71: Highlights erythroid precursors with normal pattern of distribution. - Factor VIII: Highlights increase number of megakaryocytes with many small forms seen. - CD68: Highlights increased number of monocytes/histiocytes. FLOW CYTOMETRY: Bone marrow aspirate, flow cytometry: - No increase in blasts (2% myeloblasts) - Normal myeloid maturation. - No atypical lymphoid cell population. - See comment. COMMENT: While no hematopoietic abnormality is detected in this study, correlation with clinical, morphologic, and genetic findings is recommended for full interpretation and to assess for disease processes not fully examined by flow cytometry analysis, including myelodysplastic syndrome and myeloproliferative neoplasm. FLOW CYTOMETRY ANALYSIS: FLOW DIFFERENTIAL (% Total CD45 vs. SSC gating): Myeloid 73%; Lymphoid 10%; Monocyte 9%; Dim CD45/Blast: 2%. Cell Count: 8.3 x 10*3/uL. POPULATION ANALYSIS: BLASTS: Analysis of the dim CD45 gate demonstrates 2% myeloblasts by CD34/CD117. LYMPHOID CELLS: The lymphocyte gate comprises 10% of total events and includes 87% T-cells with a CD4:CD8 ratio of 1.2:1 and normal saucedo T-cell antigen expression. 3% of lymphocytes are polyclonal B-cells with a kappa:lambda ratio of 1.5:1. The remainders are NK-cells. MYELOID CELLS: The myeloid population comprises 73% of the total events. No aberrant or immature immunophenotypic expression is detected. Some decreased SSC is observed. MONOCYTES: The monocyte population comprises 9% of the total events. No aberrant immunophenotypic expression is detected. PLASMA CELLS: 0.3% plasma cells are detected in the screening gate neg-dimCD45/CD38. Plasma cells are CD45 dim and positive for CD19. ANTIBODIES USED: KAPPA, LAMBDA, CD20, CD10, CD19, CD23, CD38, FMC7, CD16, CD56, CD8, CD5, CD2, PATIENT NAME: ARTUR VENCES PATHOLOGY DATE OF : 34 REPORT #: [id number] PHYSICIAN: SANCHEZ PATHOLOGY PCP: ERICA FOSTER MD REPORT IS CONFIDENTIAL AND NOT TO BE RELEASED WITHOUT AUTHORIZATION [facility] [address], [place] [address] Signed CD4, CD7, CD3, CD14, CD33, CD13, HLADR, CD34, CD117, CD15, CD45: TOTAL ANTIBODIES USED: 24. TCS GROSS DESCRIPTION: Two specimens are received in two containers, labeled "RT." A. The specimen, labeled "RT, core," is received in formalin and consists of two core of brown-cantor bone (0.5 and 0.7 cm in length x 0.2 cm in diameter). The specimen is submitted entirely in cassette A1 following decalcification in Immunocal. B. The specimen, labeled "RT, clot," is received in formalin and consists of a portion of red-brown clot (1.9 x 0.7 x 0.4 cm in aggregate). The specimen is submitted entirely in cassette B1. AC (under the direct supervision of a pathologist) The Gross Description was prepared using a voice recognition system. The report was reviewed for accuracy; however, sound-alike word errors, addition and/or deletions may occur. If there is any question about this report, please contact Client Services. ADDITIONAL NOTES: Immunohistochemical and/or in situ hybridization studies were performed on this case with the appropriate positive controls that react as expected. This test was developed and its performance characteristics determined by [facility]. It has not been cleared or approved by the U.S. Food and Drug Administration. The FDA has determined that such clearance or approval is not necessary. This test is used for clinical purposes. It should not be regarded as investigational or for research. [facility] is certified under the Clinical Laboratory Improvement Amendments of 1988 (CLIA) as qualified to perform high complexity clinical laboratory testing. Immunohistochemical and/or in situ hybridization studies were performed on this case with the appropriate positive controls that react as expected. This test was developed and its performance characteristics determined by [facility]. It has not been cleared or approved by the U.S. Food and Drug Administration. The FDA has determined that such clearance or approval is not necessary. This test is used for clinical purposes. It should not be regarded as investigational or for research. [facility] is certified under the Clinical Laboratory Improvement Amendments of 1988 (CLIA) as qualified to perform high complexity clinical PATIENT NAME: ARTUR VENCES PATHOLOGY DATE OF : 34 REPORT #: [id number] PHYSICIAN: SANCHEZ LEON PCP: ERICA FOSTER MD REPORT IS CONFIDENTIAL AND NOT TO BE RELEASED WITHOUT AUTHORIZATION [address] [address] Signed laboratory testing. In this case, certain antibodies were performed by both immunohistochemistry and flow cytometry analysis because flow cytometry analysis did not fully explain all the light microscopic findings. Immunohistochemistry aided in the analysis. Both methods are deemed medically necessary in this case. PERFORMING LABORATORY: The technical component was performed by [facility], [address] [place] [address] (Community Engagement Leader: Marco A Sheffield D.O.; CLIA#: [id number]. Professional interpretation was performed by [facility], [facility], [address] [place] [address] (CLIA#: [id number]). The technical component was performed by [facility], [address] [place] [address] (Community Engagement Leader: Marco A Sheffield D.O.; CLIA#: [id number]). Professional interpretation was performed by [facility], [facility], [address] [place] [address] (CLIA#: [id number]) IMAGES: A: [id number] A: [id number] FINAL DIAGNOSIS PERFORMED BY: Rio Lake MD, FACP, Sep 01 2020 1:20PM REASON FOR ADDENDUM: To add results of additional testing. Bone marrow aspirate, cytogenetics oncology chromosome analysis: Karyotype: 46,XY[20] Interpretation: NORMAL MALE KARYOTYPE Cytogenetic analysis shows a normal male karyotype in all cells analyzed. Comments: Standard cytogenetic analysis may not detect subtle submicroscopic rearrangements and may not include metaphases from abnormal cell populations with low mitotic rates or present in low levels. Test Detail: Metaphases Counted: 20 Metaphases Analyzed: 20 Metaphases Karyotyped: 2 Culture Type: 24EB, 48B Banding Technique: GTG Banding Resolution: 375 PATIENT NAME: ARTUR VENCES PATHOLOGY DATE OF : 34 REPORT #: [id number] PHYSICIAN: SANCHEZ PATHOLOGY PCP: ERICA FOSTER MD REPORT IS CONFIDENTIAL AND NOT TO BE RELEASED WITHOUT AUTHORIZATION [facility] [address], [place] [address] Signed CPT Codes: 24457, 70219*, 01162 *Professional interpretation service generally billed directly to carriers by [facility]. The Technical Component Processing, Analysis and Professional Component of this test was completed at [facility], [address] [place] [address] / [address] / [phone] / CLIA #[id number] / Community Engagement Leader(s): Giovanna Cain M.D. (Accession / Case No: [id number] / [id number]). The performance characteristics of this test have been determined by the performing laboratory. This test has not been approved by the FDA. The FDA has determined such clearance or approval is not necessary. This laboratory is CLIA certified to perform high complexity clinical testing. Images that may be included within this report are parts representative of the patient but not all testing in its entirety and should not be used to render a result. The CPT codes provided with our test descriptions are based on AMA guidelines and are for informational purposes only. Correct CPT coding is the sole responsibility of the billing democrat. Please direct any questions regarding coding to the payer being billed. Bone marrow aspirate, BCR/ABL1/ASS1 t(9;22): Results: Not Detected Interpretation: BCR/ABL1 t(9;22) rearrangement: Not detected. Fluorescence in situ hybridization (FISH) analysis was performed using a tricolor, dual fusion BCR/ABL1 probe set used to detect the (9;22) translocation associated with CML and less commonly ALL or AML. The tri color probe set also detects derivative chromosome 9 deletions. All probe signals were within the normal reference range. This represents a NORMAL result. Probe Set Detail: BCR/ABL1/ASS1 t(9;22): nuc charo(ASS1,ABL1,BCR)x2[200] Nuclei Scored: 200 Probe set : BCR/ABL1/ASS1 t(9;22) Scoring method: Computer Assisted Technology CPT Code: 83327 # of Units: [address] Castro M.D., Hematopathologist All controls were within expected ranges. The Technical Component Processing of this test was completed at [facility], [address] [place] [address], [place] / [address] / [phone] / CLIA PATIENT NAME: ARTUR VENCES PATHOLOGY DATE OF : 34 REPORT #: [id number] PHYSICIAN: SANCHEZ LEON PCP: ERICA FOSTER MD REPORT IS CONFIDENTIAL AND NOT TO BE RELEASED WITHOUT AUTHORIZATION [address] [address] Signed #[id number] / Community Engagement Leader(s): Giovanna Cain M.D. The Technical Component Analysis of this test was completed at [facility] [place], [address] [place] [address], [address], [place] / [address] / [phone] / CLIA# [id number] / Community Engagement Leader(s): Dr. Oscar Govea. The Professional Component of this test was completed at [facility], [address] [place] [address] / / . (Accession / Case No: [id number] / [id number]). [facility] FISH test uses either FDA cleared and/or analyte specific reagent (ASR) probes. This test was developed and its performance characteristics determined by [facility] in [place], [place]. It has not been cleared or approved by the U.S. Food and Drug Administration (FDA). The FDA has determined that such clearance or approval is not necessary. This test is used for clinical purposes and should not be regarded as investigational or for research. This laboratory is regulated under CLIA '88 as qualified to perform high complexity testing. Interphase FISH does not include examination of the entire chromosomal complement. Clinically significant anomalies detectable by routine banded cytogenetic analysis may still be present. Consider reflex banded cytogenetic analysis. Images that may be included within this report are parts representative of the patient but not all testing in its entirety and should not be used to render a result. The CPT codes provided with our test descriptions are based on AMA guidelines and are for informational purposes only. Correct CPT coding is the sole responsibility of the billing democrat. Please direct any questions regarding coding to the payer being billed. Bone marrow aspirate, JAK2 V617F mutation analysis - qualitative: Results: JAK2 V617F Mutation TNP - Test Not Performed Clinical Significance: The JAK2 V617F mutation has been reported in >80% of the patients with polycythemia vera (PV), 30-50% of patients with either essential thrombocythemia (ET) or primary myelofibrosis (PMF). This mutation is not detected in normal individuals. A small subset of patients with myeloproliferative neoplasms (MPN) that are negative for the JAK2 V617F mutation will harbor JAK2 mutations in exon 12. More rare mutations are detected in exons 13 and 14. JAK2 mutations can be used to differentiate reactive conditions from PATIENT NAME: ARTUR VENCES PATHOLOGY DATE OF : 34 REPORT #: [id number] PHYSICIAN: SANCHEZ PATHOLOGY PCP: ERICA FOSTER MD REPORT IS CONFIDENTIAL AND NOT TO BE RELEASED WITHOUT AUTHORIZATION [facility] [address], [place] [address] Signed neoplastic process. Methodology: Total nucleic acid was extracted from patient's plasma or PB/BM cells. 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 The PCR product was then purified and sequenced in both forward and reverse directions using high-sensitivity [place] sequencing which improves the lower detection limit to approximately 1% mutated DNA in a wild-type background. The resulting sequence was compared to GenBank Acc# [id number] sequence. Various factors including quantity and quality of nucleic acid, sample preparation and sample age can affect assay performance. References: 1. Chuy Williamson, et al. A unique clonal JAK2 mutation leading to constitutive signalling causes polycythaemia vera. Nature. 2005; 434:1144-8. 2. Miladys R, et al. A aiep-je-dkhcxxfu mutation of JAK2 in myeloproliferative disorders. N Engl J Med. 2005; 352:1779-90. 3. Fay BAUTISTA, Ras E, Carol Ann P, et al; M[employer] Research Consortium. Prospective identification of high-risk polycythemia vera patients based on JAK2(V617F) allele burden. Leukemia. 2007;21(9):1952-9. PMID: 73494257. The Technical Component Processing, Analysis and Professional Component of this test was completed at [facility], [address] [place] [address], [place], [place] / [address] / [phone] / CLIA #[id number] / Community Engagement Leader(s): Giovanna Cain M.D. (Accession/CaseNo: [id number]) The performance characteristics of this test have been determined by [facility]. This test has not been approved by the FDA. The FDA has determined such clearance or approval is not necessary. This laboratory is CLIA certified to perform high complexity clinical testing. Images that may be included within this report are parts representative of the patient but not all testing in its entirety and should not be used to render a result. The CPT codes provided with our test descriptions are based on [employer] and AMA guidelines and are for informational purposes only. Correct CPT coding is the sole responsibility of the billing democrat. Please direct any questions regarding coding to the payer being billed. Diagnostician: Rio Lake MD, FACP PATIENT NAME: ARTUR VENCES PATHOLOGY DATE OF : 34 REPORT #: [id number] PHYSICIAN: SANCHEZ PATHOLOGY PCP: ERICA FOSTER MD REPORT IS CONFIDENTIAL AND NOT TO BE RELEASED WITHOUT AUTHORIZATION [facility] [address] [facility] [place] [address] Signed Pathologist Diagnostician: Arslan Castillo MD Pathologist Electronically Signed 09/13/2020 Copies: ~ PATIENT NAME: ARTUR VENCES PATHOLOGY DATE OF : 34 REPORT #: [id number] PHYSICIAN: SANCHEZ LEON PCP: ERICA FOSTER MD REPORT IS CONFIDENTIAL AND NOT TO BE RELEASED WITHOUT AUTHORIZATION
== END 2020-08-31 13:21 | disposition home or self-care (01) ==
LOC: OPS 11:00 → DS 11:05 → OPS 12:00
PROVIDERS: ATTEND Specialist
PROC: 079T3ZX Drainage of Bone Marrow, Percutaneous Approach, Diagnostic (ICD-10-PCS; 2020-08-31)
PROC: 07DR3ZX Extraction of Iliac Bone Marrow, Percutaneous Approach, Diagnostic (ICD-10-PCS; principal; 2020-08-31 12:00)
DX: C93.10 Chronic myelomonocytic leukemia not having achieved remission (principal); E78.2 Mixed hyperlipidemia; N52.9 Male erectile dysfunction, unspecified; E55.9 Vitamin D deficiency, unspecified; M85.80 Other specified disorders of bone density and structure, unspecified site; Z86.010 Personal history of colon polyps; Z95.1 Presence of aortocoronary bypass graft; Z79.899 Other long term (current) drug therapy; Z79.82 Long term (current) use of aspirin; Z88.1 Allergy status to other antibiotic agents
CPT/HCPCS: 85025; 88184; 88185; 88305; 88311; 88313; 88341; 88342; G0500; J2250; J3010; J7121

== ENCOUNTER 2021-11-04 14:29 | Emergency (ER) | payer MEDICARE, OTHER ==
[~2021-11-04] VITALS: Ht 190.5 cm; Wt 86.6 kg
[~2021-11-04 14:29] MED LIST changes: +ACETAMINOPHEN500 MG PO; +ADULT ASPIRIN R81 MG PO; +CITRUCEL479 GM PO; +IRON 100-VITAM1 EACH PO; +OMEPRAZOLE20 MG PO; +OXYCODONE HCL5 MG PO; +VITAMIN D325 MC2 PO
[2021-11-04] MEDS ORDERED: CEPHALEXIN500 M1 PO ×2 (19:04→19:06)
== END 2021-11-04 18:30 | disposition home or self-care (01) ==
LOC: ED 14:29
DX: L03.113 Cellulitis of right upper limb (principal); I25.10 Atherosclerotic heart disease of native coronary artery without angina pectoris; Z87.891 Personal history of nicotine dependence; Z88.2 Allergy status to sulfonamides; Z88.1 Allergy status to other antibiotic agents
CPT/HCPCS: 36415; 80048; 85025; A9270; J0690